=== PATIENT | female | born 1965 | race Caucasian/White ===

== ENCOUNTER 2023-03-16 21:19 | Emergency (ER) | payer OTHER ==
--- NOTE | 2023-03-16 21:24 | ERPHSYRPT ---
- History of Present Illness Time Seen by Provider: 03/16/23 21:24 Source: patient, family Exam Limitations: no limitations Physician History: This is a 58-year-old white female patient of Shara Mackay who for the last week has had worsening generalized body aches and weakness. Patient denies chest pain. Patient denies shortness of breath. Patient denies fever. Patient denies cough. Patient denies nausea vomiting or diarrhea. Patient has a history of hypertension. She has no known exposures to individuals with similar symptoms. Timing/Duration: week(s) (1), worse Severity: moderate Associated Symptoms: malaise, weakness, other (Generalized aches and pains), No shortness of breath, No chest pain Allergies/Adverse Reactions: latex Allergy (Mild, Verified 03/16/23 21:27) Rash tape Allergy (Mild, Uncoded 03/16/23 21:27) Rash Home Medications: Lisinopril 10 mg [Zestril 10 MG] 20 mg PO DAILY 09/20/14 [History] hydroCHLOROthiazide [Hydrochlorothiazide] 12.5 mg PO DAILY 03/16/23 [History] Hx Tetanus, Diphtheria Vaccination/Date Given: Yes Hx Influenza Vaccination/Date Given: Yes Hx Pneumococcal Vaccination/Date Given: No Travel Risk - International Travel Have you traveled outside of the country in past 3 weeks: No - Coronavirus Screening Are you exhibiting any of the following symptoms?: Yes Symptoms: Headaches/Body Aches/Fatigue Close contact with a COVID-19 positive Pt in past 14-21 Days: No - Review of Systems Constitutional: Weakness Eyes: No Symptoms Ears, Nose, & Throat: No Symptoms Respiratory: No Symptoms Cardiac: No Symptoms Abdominal/Gastrointestinal: No Symptoms Genitourinary Symptoms: No Symptoms Musculoskeletal: Arthralgias, Myalgias Skin: No Symptoms Neurological: No Symptoms Psychological: No Symptoms Endocrine: No Symptoms Hematologic/Lymphatic: No Symptoms Immunological/Allergic: No Symptoms All Other Systems: Reviewed and Negative - Past Medical History Pertinent Past Medical History: Yes Cardiac History: Hypertension - Past Surgical History Past Surgical History: Yes Female Surgical History: Tubal Ligation, Other Other Surgical History: CYST REMOVED FROM LEFT WRIST - Social History Smoking Status: Former smoker Exposure to second hand smoke: No Drug Use: none Patient Lives Alone: No - Nursing Vital Signs Nursing Vital Signs: Initial Vital Signs Pulse Rate 76 03/16/23 21:30 Respiratory Rate 20 03/16/23 21:30 Blood Pressure 185/94 03/16/23 21:30 O2 Sat by Pulse Oximetry 98 03/16/23 21:30 Pain Scale Pain Intensity [Generalized] 7 Pain Intensity 0 - Physical Exam General Appearance: no apparent distress, alert, anxiety, obese Eye Exam: PERRL/EOMI, eyes nml inspection Ears, Nose, Throat Exam: normal ENT inspection, moist mucous membranes Neck Exam: normal inspection, non-tender, supple, full range of motion Respiratory Exam: normal breath sounds, lungs clear, airway intact, No chest tenderness, No respiratory distress Cardiovascular Exam: regular rate/rhythm, normal heart sounds, normal peripheral pulses Gastrointestinal/Abdomen Exam: soft, normal bowel sounds, No tenderness Pelvic Exam: not done Rectal Exam: not done Back Exam: normal inspection, normal range of motion, No CVA tenderness, No vertebral tenderness Extremity Exam: normal inspection, normal range of motion, pelvis stable Neurologic Exam: alert, oriented x 3, cooperative, mortar carrier II-XII nml as tested, normal mood/affect, nml cerebellar function, nml station & gait, sensation nml Skin Exam: normal color, warm, dry Lymphatic Exam: No adenopathy SpO2 Interpretation: normal O2 Delivery: Room Air - Course Nursing assessment & vital signs reviewed: Yes Ordered Tests: Active Orders 24 hr Category Date Time Status IV Insertion STAT Care 03/16/23 21:43 Active Pulse Oximetry (ED) STAT Care 03/16/23 21:43 Active CBC W DIFF Stat Lab 03/16/23 21:58 Completed CMP Stat Lab 03/16/23 21:58 Completed MONO SCREEN Stat Lab 03/16/23 21:58 Completed UA W/RFX UR CULTURE Stat Lab 03/16/23 23:26 Completed Medication Summary Discontinued Medications Generic Name Dose Route Start Last Admin Trade Name Freq PRN Reason Stop Dose Admin Hydromorphone HCl 1 mg 03/16/23 22:00 03/16/23 22:05 Hydromorphone 1 Mg/1ml Inj IV 03/16/23 22:01 1 mg STAT ONE Administration Hydromorphone HCl Confirm 03/16/23 22:04 Hydromorphone 1 Mg/1ml Inj Administered 03/16/23 22:05 Dose 1 mg .ROUTE .STK-MED ONE Sodium Chloride 1,000 mls @ 999 mls/hr 03/16/23 21:43 03/16/23 22:55 Sodium Chloride 0.9% 1000 Ml IV 03/16/23 22:43 Infused .Q1H1M STA Infusion Sodium Chloride Confirm 03/16/23 21:59 Sodium Chloride 0.9% 1000 Ml Administered 03/16/23 22:00 Dose 1,000 mls @ ud .ROUTE .STK-MED ONE Ketorolac Tromethamine 30 mg 03/16/23 22:00 03/16/23 22:04 Ketorolac Tromethamine 30 Mg/Ml Inj IV 03/16/23 22:01 30 mg STAT ONE Administration Ketorolac Tromethamine Confirm 03/16/23 22:03 Ketorolac Tromethamine 30 Mg/Ml Inj Administered 03/16/23 22:04 Dose 30 mg .ROUTE .STK-MED ONE Ondansetron HCl 4 mg 03/16/23 22:00 03/16/23 22:05 Ondansetron Hcl 4 Mg/2 Ml Vial IV 03/16/23 22:01 4 mg STAT ONE Administration Ondansetron HCl Confirm 03/16/23 22:03 Ondansetron Hcl 4 Mg/2 Ml Vial Administered 03/16/23 22:04 Dose 4 mg .ROUTE .STK-MED ONE Lab/Rad Data: Laboratory Result Diagrams 03/16/23 21:58 03/16/23 21:58 Laboratory Results 03/16/23 03/16/23 03/16/23 Range/Units 23:26 21:58 21:58 WBC (4.0-10.5) x10^3/uL RBC (4.1-5.4) x10^6/uL Hgb (12.0-16.0) g/dL Hct (35-47) % MCV (78-100) fL MCH (26-32) pg MCHC (32-36) g/dL RDW (11.5-14.0) % Plt Count (150-450) x10^3/uL MPV (7.5-11.0) fL Gran % (36.0-66.0) % Immature Gran % (Auto) (0.00-0.4) % Nucleat RBC Rel Count (0.00-0.1) % Eos # (Auto) (0-0.5) x10^3/uL Immature Gran # (Auto) (0.00-0.03) x10^3u/L Absolute Lymphs (auto) (1.0-4.6) x10^3/uL Absolute Monos (auto) (0.0-1.3) x10^3/uL Absolute Nucleated RBC (0.00-0.01) x10^3u/L Lymphocytes % (24.0-44.0) % Monocytes % (0.0-12.0) % Eosinophils % (0.00-5.0) % Basophils % (0.0-0.4) % Absolute Granulocytes (1.4-6.9) x10^3/uL Basophils # (0-0.4) x10^3/uL Sodium (137-145) mmol/L Potassium (3.5-5.1) mmol/L Chloride (98-107) mmol/L Carbon Dioxide (22-30) mmol/L Anion Gap (5-15) MEQ/L BUN (7-17) mg/dL Creatinine (0.52-1.04) mg/dL Estimated GFR ML/MIN Glucose (74-106) mg/dL Calcium (8.4-10.2) mg/dL Total Bilirubin (0.2-1.3) mg/dL AST (14-36) U/L ALT (0-35) U/L Alkaline Phosphatase (38-126) U/L Serum Total Protein (6.3-8.2) g/dL Albumin (3.5-5.0) g/dL Urine Color Yellow (Yellow) Urine Appearance Clear (Clear) Urine pH 6.0 (4.6-8.0) Ur Specific [place] 1.015 (1.005-1.030) Urine Protein Negative (Negative) Urine Glucose (UA) Negative (Negative) mg/dL Urine Ketones Negative (Negative) Urine Blood Negative (Negative) Urine Nitrite Negative (Negative) Urine Bilirubin Negative (Negative) Urine Urobilinogen 1.0 A (0.2) mg/dL Ur Leukocyte Esterase Trace A (Negative) U Hyaline Cast (Auto) NONE SEEN (0-2) /LPF Urine Microscopic RBC 6-10 A (0-5) /HPF Urine Microscopic WBC 0-2 (0-5) /HPF Ur Epithelial Cells Rare (None Seen) /HPF Urine Bacteria None Seen (None Seen) /HPF Urine Culture Reflexed NO (NO) Monoscreen NEGATIVE (NEGATIVE) Influenza Type A Ag NEGATIVE (NEGATIVE) Influenza Type B Ag NEGATIVE (NEGATIVE) RSV (PCR) NEGATIVE (NEGATIVE) SARS-CoV-2 (PCR) NEGATIVE (NEGATIVE) 03/16/23 03/16/23 Range/Units 21:58 21:58 WBC 8.9 (4.0-10.5) x10^3/uL RBC 3.90 L (4.1-5.4) x10^6/uL Hgb 12.3 (12.0-16.0) g/dL Hct 37.6 (35-47) % MCV 96.4 (78-100) fL MCH 31.5 (26-32) pg MCHC 32.7 (32-36) g/dL RDW 13.2 (11.5-14.0) % Plt Count 341 (150-450) x10^3/uL MPV 10.3 (7.5-11.0) fL Gran % 52.6 (36.0-66.0) % Immature Gran % (Auto) 0.3 (0.00-0.4) % Nucleat RBC Rel Count 0.0 (0.00-0.1) % Eos # (Auto) 0.30 (0-0.5) x10^3/uL Immature Gran # (Auto) 0.03 (0.00-0.03) x10^3u/L Absolute Lymphs (auto) 3.05 (1.0-4.6) x10^3/uL Absolute Monos (auto) 0.75 (0.0-1.3) x10^3/uL Absolute Nucleated RBC 0.00 (0.00-0.01) x10^3u/L Lymphocytes % 34.5 (24.0-44.0) % Monocytes % 8.5 (0.0-12.0) % Eosinophils % 3.4 (0.00-5.0) % Basophils % 0.7 (0.0-0.4) % Absolute Granulocytes 4.66 (1.4-6.9) x10^3/uL Basophils # 0.06 (0-0.4) x10^3/uL Sodium 140 (137-145) mmol/L Potassium 4.1 (3.5-5.1) mmol/L Chloride 105 (98-107) mmol/L Carbon Dioxide 27 (22-30) mmol/L Anion Gap 11.6 (5-15) MEQ/L BUN 18 H (7-17) mg/dL Creatinine 1.05 H (0.52-1.04) mg/dL Estimated GFR 57.2 ML/MIN Glucose 109 H (74-106) mg/dL Calcium 8.7 (8.4-10.2) mg/dL Total Bilirubin 0.40 (0.2-1.3) mg/dL AST 32 (14-36) U/L ALT 24 (0-35) U/L Alkaline Phosphatase 78 (38-126) U/L Serum Total Protein 7.1 (6.3-8.2) g/dL Albumin 3.9 (3.5-5.0) g/dL Urine Color (Yellow) Urine Appearance (Clear) Urine pH (4.6-8.0) Ur Specific [place] (1.005-1.030) Urine Protein (Negative) Urine Glucose (UA) (Negative) mg/dL Urine Ketones (Negative) Urine Blood (Negative) Urine Nitrite (Negative) Urine Bilirubin (Negative) Urine Urobilinogen (0.2) mg/dL Ur Leukocyte Esterase (Negative) U Hyaline Cast (Auto) (0-2) /LPF Urine Microscopic RBC (0-5) /HPF Urine Microscopic WBC (0-5) /HPF Ur Epithelial Cells (None Seen) /HPF Urine Bacteria (None Seen) /HPF Urine Culture Reflexed (NO) Monoscreen (NEGATIVE) Influenza Type A Ag (NEGATIVE) Influenza Type B Ag (NEGATIVE) RSV (PCR) (NEGATIVE) SARS-CoV-2 (PCR) (NEGATIVE) - Progress Progress: improved, pain not gone completely, re-examined Progress Note: 03/16/23 23:55 Patient's medical issue is 1 of moderate complexity. Level complexity in the work-up performed is based on the review of the patient's past medical history, review of the patient's medication list, review of the patient's drug allergy list, history of present illness and physical findings on examination. The work-up in this patient included urinalysis, placement of intravenous line, infusion of 1 L of normal saline solution, COVID/RSV, influenza A/B swabs, mono test, CBC, CMP. I reviewed the above findings. The work-up was negative for any acute, emergent medical issue. Patient likely has some type of viral infection. We will refer her back to her primary care provider on 03/17/2023 for further evaluation and management. Patient denies chest pain and she denies shortness of breath. Counseled pt/family regarding: lab results, diagnosis, need for follow-up Medical Desision Making - Independent Historian Additional History obtained from: Spouse - Diagnostic Testing Diagnostic test were ordered, analyzed, and reviewed by me: Yes - Risk of complications Low Risk: Low risk of morbidity from additional dx testing or treatment - Departure Departure Disposition: Home Clinical Impression: Arthralgia, Flu-like symptoms Condition: Stable Critical Care Time: No Referrals: SHARA MACKAY FNP [Primary Care Provider] - Follow up/PCP as directed Additional Instructions: Drink plenty of fluids. Take your medication as prescribed. Follow-up with your primary care provider on 03/17/2023 to make an appointment for further evaluation management. Forms: Work/School Release Form
[2023-03-16 21:39] VITALS: TEMP 97.9
[2023-03-16] MEDS ORDERED: Sodium Chloride 0.9% 1000 ML 1,000 ML IV STA (21:43)
[2023-03-16] MEDS ORDERED: Sodium Chloride 0.9% 1000 ML 1,000 ML ONE (21:59)
[2023-03-16 22:00] LABS: Absolute Neutrophil Ct (ANC) 4.66 x10^3/uL (1.4-6.9); BASOPHIL % 0.7 % (0.0-0.4); Basophil (Absolute #) 0.06 x10^3/uL (0-0.4); Eosinophil % 3.4 % (0.00-5.0); Hematocrit 37.6 % (35-47); Hemoglobin 12.3 g/dL (12.0-16.0); IMMATURE GRAN # 0.03 x10^3u/L (0.00-0.03); IMMATURE GRAN % 0.3 % (0.00-0.4); Lymphocyte (Absolute #) 3.05 x10^3/uL (1.0-4.6); Lymphocytes % 34.5 % (24.0-44.0); Mean Cell Volume 96.4 fL (78-100); Mean Corpuscular Hemoglobin 31.5 pg (26-32); Mean Corpuscular Hgb Concent. 32.7 g/dL (32-36); Mean Platelet Volume 10.3 fL (7.5-11.0); Monocyte (Absolute #) 0.75 x10^3/uL (0.0-1.3); Monocytes % 8.5 % (0.0-12.0); Neutrophil % 52.6 % (36.0-66.0); Platelet Count 341 x10^3/uL (150-450); Red Cell Distribution Width 13.2 % (11.5-14.0); White Blood Count 8.9 x10^3/uL (4.0-10.5)
[2023-03-16] MEDS ORDERED: Hydromorphone 1 mg/ml Injection IV ONE (22:00)
[2023-03-16] MEDS ORDERED: Zofran 4 MG/2 ML VIAL IV ONE (22:00)
[2023-03-16] MEDS ORDERED: TORAdol 30 mg Injection IV ONE (22:00)
[2023-03-16] MEDS ORDERED: TORAdol 30 mg Injection ONE (22:03)
[2023-03-16] MEDS ORDERED: Zofran 4 MG/2 ML VIAL ONE (22:03)
[2023-03-16] MEDS ORDERED: Hydromorphone 1 mg/ml Injection ONE (22:04)
[2023-03-16 22:11] LABS: ALBUMIN 3.9 g/dL (3.5-5.0); ANION GAP 11.6 MEQ/L (5-15); BILIRUBIN,TOTAL 0.4 mg/dL (0.2-1.3); Calcium 8.7 mg/dL (8.4-10.2); Creatinine 1 1.05 mg/dL (0.52-1.04); EST GLOMERULAR FILTRATION RATE 57.2 ML/MIN; Potassium 4.1 mmol/L (3.5-5.1); Total Protein 7.1 g/dL (6.3-8.2)
[2023-03-16 22:37] LABS: INFLUENZA A NEGATIVE (NEGATIVE); INFLUENZA B NEGATIVE (NEGATIVE); RESPIRATORY SYNCTIAL VIRUS NEGATIVE (NEGATIVE); SARS-CoV-2 Xpert Express NEGATIVE (NEGATIVE)
[2023-03-16 23:03] VITALS: RESP 18
[2023-03-16 23:46] LABS: ADD URINE CULTURE? NO (NO); Appearance Clear (Clear); Bacteria None Seen /HPF (None Seen); Bilirubin Negative (Negative); Blood Negative (Negative); Epithelial Cells Rare /HPF (None Seen); Glucose, Urine Negative (Negative); Hyaline Casts NONE SEEN /LPF (0-2); Ketones Negative (Negative); Leukocyte Esterase Trace (Negative); Nitrite Negative (Negative); Protein,Urine Dip Negative (Negative); Specific Gravity 1.015 (1.005-1.030); WBC 0-2 /HPF (0-5)
[2023-03-17 00:02] VITALS: BP 169/90; PULSE 60; O2SAT 98
== END 2023-03-17 00:10 | disposition home or self-care (01) ==
LOC: ED 21:19
DX: M25.50 Pain in unspecified joint (principal); R53.1 Weakness; M79.10 Myalgia, unspecified site; I10 Essential (primary) hypertension; Z79.899 Other long term (current) drug therapy
CPT/HCPCS: 0241U; 36000; 36415; 80053; 81001; 85025; 86308; 94760; 96360; 96374; 96375; 99284; J1170; J1885; J2405

== ENCOUNTER 2023-10-04 23:09 | Observation (INO) | payer OTHER ==
--- NOTE | 2023-10-04 23:49 | ERPHSYRPT ---
- History of Present Illness Time Seen by Provider: 10/04/23 23:46 Source: patient, family Exam Limitations: no limitations Patient Subjective Stated Complaint: pt states that she was postiive flu b and bronchitis x1 month ago and states that she still has a cough that she can't get over, pt also c/o of SMITH and vomiting x3 episodes that started today Triage Nursing Assessment: pt ambulatory to bed by stand by assist from wheelchair, pt alert and oriented x3, skin pwd, pt c/o cough and dizziness x1 month and headahce and vomiting that started today, pt had 3 episodes of vomiting in the last 12 hrs, pt c/o 7/10 headache, pt was diagnosed with flu B x1 month ago, pt has intermittent nonproductive cough during triage, pt afebrile Physician History: Pt has 1 month Hx flu with + Flu B swab, Neg Covid swab x 2, now has vomiting and ABd pain/tenderness today. Fatigued for the past month. Headache has been also the past month but is getting worse per pt. No Hx trauma. Tx also with steroids and Z roberto without improvement by Hx. is here in ER as independent confirming Hx source. I discussed the risks/benefits of Tx IVF, Zofran, Prilosec Pepcid, CXR, Abd CT, Head CT. EKG, Trops, BNP ( upper abd pain and weakness fatigue which could be symptoms of cardiac condition) , CBC, CMP, Lactate, HCG, T 4 TSH ( fatigue) , UA, Amylase, Lipase, Assumption ( fatigue), Sed rate ( checking for temporal arteritis/inflammatory cause of headache) , and Co-oximetry( checking for carbon monoxide) with PT and spouse and they wish to proceed so these are ordered. Results were discussed. PMHx Hptn and has vomited meds today. She is a nonsmoker with lower than expected O2 sat. and RLL infiltrate SP flu. Timing/Duration: today (vomiting and abd pain), week(s) (flu symptoms and headache) Severity: moderate Associated Symptoms: nausea, vomiting, abdominal pain, cough, headaches Allergies/Adverse Reactions: latex Allergy (Mild, Verified 03/16/23 21:27) Rash tape Allergy (Mild, Uncoded 03/16/23 21:27) Rash Home Medications: Lisinopril 10 mg [Zestril 10 MG] 40 mg PO DAILY 09/20/14 [History] hydroCHLOROthiazide [Hydrochlorothiazide] 12.5 mg PO DAILY 03/16/23 [History] Metoprolol Succinate 100 mg [Toprol Xl 100 MG] 100 mg PO DAILY 10/04/23 [History] Hx Tetanus, Diphtheria Vaccination/Date Given: Yes Hx Influenza Vaccination/Date Given: Yes Hx Pneumococcal Vaccination/Date Given: No Immunizations Up to Date: Yes Travel Risk - International Travel Have you traveled outside of the country in past 3 weeks: No - Coronavirus Screening Are you exhibiting any of the following symptoms?: Yes Symptoms: Vomiting/Diarrhea Close contact with a COVID-19 positive Pt in past 14-21 Days: No - Vaccine Status Have you recieved a Covid-19 vaccination: No 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 - Vaccination Dates Date of 2cond Vaccination (if applicable): 2020 - Review of Systems Constitutional: No Fever, No Chills Eyes: No Symptoms Ears, Nose, & Throat: No Symptoms Respiratory: Cough, No Dyspnea Cardiac: No Chest Pain, No Edema, No Syncope Abdominal/Gastrointestinal: Abdominal Pain, Nausea, Vomiting, No Diarrhea Genitourinary Symptoms: No Dysuria Musculoskeletal: No Back Pain, No Neck Pain Skin: No Rash Neurological: Headache, No Dizziness, No Focal Weakness, No Sensory Changes Psychological: No Symptoms Endocrine: No Symptoms Hematologic/Lymphatic: No Symptoms Immunological/Allergic: No Symptoms All Other Systems: Reviewed and Negative - Past Medical History Pertinent Past Medical History: Yes Neurological History: Migraines ENT History: No Pertinent History Cardiac History: Hypertension Respiratory History: No Pertinent History Endocrine Medical History: No Pertinent History Musculoskeletal History: No Pertinent History GI Medical History: GERD History: No Pertinent History Psycho-Social History: No Pertinent History Female Reproductive Disorders: No Pertinent History - Past Surgical History Past Surgical History: Yes Neuro Surgical History: No Pertinent History Cardiac: No Pertinent History Respiratory: No Pertinent History Gastrointestinal: No Pertinent History Genitourinary: No Pertinent History Musculoskeletal: Orthopedic Surgery Female Surgical History: Tubal Ligation, Other Other Surgical History: CYST REMOVED FROM LEFT WRIST - Social History Smoking Status: Former smoker Exposure to second hand smoke: No Drug Use: other Patient Lives Alone: No - Nursing Vital Signs Nursing Vital Signs: Initial Vital Signs Temperature 98.5 F 10/04/23 23:27 Pulse Rate 115 H 10/04/23 23:27 Respiratory Rate 18 10/04/23 23:27 Blood Pressure 194/108 10/04/23 23:27 O2 Sat by Pulse Oximetry 93 L 10/04/23 23:27 Pain Scale Pain Intensity 7 - Physical Exam General Appearance: no apparent distress, alert Eye Exam: PERRL/EOMI, eyes nml inspection, other (Fundi benign) Ears, Nose, Throat Exam: normal ENT inspection, TMs normal, pharynx normal, moist mucous membranes Neck Exam: normal inspection, non-tender, supple, full range of motion, No meningismus, No Brudzinski, No Kernig's, No thyromegaly Respiratory Exam: normal breath sounds, lungs clear, airway intact, No respiratory distress, No accessory muscle use, No crackles/rales, No rhonchi, No wheezing, No stridor Cardiovascular Exam: regular rate/rhythm, normal heart sounds, normal peripheral pulses, tachycardia Gastrointestinal/Abdomen Exam: soft, normal bowel sounds, tenderness, guarding, No distention, No mass, No rebound Pelvic Exam: deferred Rectal Exam: deferred Back Exam: normal inspection, normal range of motion, No CVA tenderness, No vertebral tenderness Extremity Exam: normal inspection, normal range of motion, pelvis stable, No calf tenderness, No jarod's sign, No pedal edema, No swelling Neurologic Exam: alert, oriented x 3, cooperative, beauty director II-XII nml as tested, normal mood/affect, nml cerebellar function, nml station & gait, sensation nml, No motor deficits Skin Exam: normal color, warm, dry, No rash Lymphatic Exam: No adenopathy SpO2 Interpretation: borderline oxygenation SpO2: 93 O2 Delivery: Room Air - Course Nursing assessment & vital signs reviewed: Yes EKG Interpreted by Me: Sinus Rhythm, NORMAL AXIS, NORMAL INTERVALS, NORMAL QRS, Non-specific ST Changes - Radiology Exams Chest X-ray Interpretation: Reviewed by me, Infiltrates, Pneumonia (RLL) - CT Exams Head CT Interpretation: Tele-radiologist Report, No/Intracranial Hemorrhag, Other (chronic microvascular changes) Abdomen/Pelvis CT Interpretation: Tele-radiologist Report, Normal Appendix, No appendicitis, Other (bilateral renal calcs nonobst, Gallstones non acute) Ordered Tests: Active Orders 24 hr Category Date Time Status EKG-ER Only STAT Care 10/04/23 23:57 Active IV Insertion STAT Care 10/04/23 23:57 Active ABDOMEN AND PELVIS W/0 CONTRAS [CT] Stat Exams 10/04/23 23:58 Completed CHEST 2 VIEWS (PA AND LAT) Stat Exams 10/04/23 23:58 Taken HEAD WITHOUT CONTRAST [CT] Stat Exams 10/05/23 00:20 Completed CBC W DIFF Stat Lab 10/04/23 23:57 Completed CO-OXIMETRY Stat Lab 10/05/23 00:24 Ordered CULTURE,URINE Stat Lab 10/05/23 00:55 Received Lactic Acid Stat Lab 10/04/23 23:57 Completed MONO SCREEN Stat Lab 10/05/23 01:00 Completed SED RATE [Erythrocyte Sedimentation Rate] Stat Lab 10/05/23 00:00 Completed TROPONIN Q4H Lab 10/05/23 03:57 Ordered TROPONIN Q4H Lab 10/05/23 07:57 Ordered UA W/RFX UR CULTURE Stat Lab 10/05/23 00:55 Completed Medication Summary Discontinued Medications Generic Name Dose Route Start Last Admin Trade Name Freq PRN Reason Stop Dose Admin Droperidol 0.625 mg 10/05/23 00:39 10/05/23 00:42 Droperidol 5 Mg/2 Ml Vial IV 10/05/23 00:40 0.625 mg STAT ONE Administration Droperidol Confirm 10/05/23 00:40 Droperidol 5 Mg/2 Ml Vial Administered 10/05/23 00:41 Dose 5 mg .ROUTE .STK-MED ONE Famotidine 20 mg 10/04/23 23:57 10/05/23 00:12 Famotidine 20 Mg/1 Vial IV 10/04/23 23:58 20 mg STAT ONE Administration Famotidine Confirm 10/05/23 00:06 Famotidine 20 Mg/1 Vial Administered 10/05/23 00:07 Dose 20 mg IV .STK-MED ONE Hydralazine HCl 10 mg 10/05/23 01:48 10/05/23 01:50 Hydralazine Hcl 20 Mg/Ml Vial IV 10/05/23 01:49 10 mg STAT ONE Administration Hydralazine HCl Confirm 10/05/23 01:49 Hydralazine Hcl 20 Mg/Ml Vial Administered 10/05/23 01:50 Dose 20 mg .ROUTE .STK-MED ONE Sodium Chloride 1,000 mls @ 999 mls/hr 10/04/23 23:57 10/05/23 02:00 Sodium Chloride 0.9% 1000 Ml IV 10/05/23 00:57 Infused .Q1H1M STA Infusion Sodium Chloride Confirm 10/05/23 00:06 Sodium Chloride 0.9% 1000 Ml Administered 10/05/23 00:07 Dose 1,000 mls @ ud .ROUTE .STK-MED ONE Ceftriaxone Sodium 1 gm in 100 mls @ 200 mls/hr 10/05/23 00:50 10/05/23 02:00 Rocephin 1 Gm / 100 Ml Nacl IV 10/05/23 01:19 Infused STAT ONE Infusion Ceftriaxone Sodium Confirm 10/05/23 01:04 Rocephin 1 Gm / 100 Ml Nacl Administered 10/05/23 01:05 Dose 1 gm in 100 mls @ ud IV .STK-MED ONE Ondansetron HCl 4 mg 10/04/23 23:57 10/05/23 00:12 Ondansetron Hcl 4 Mg/2 Ml Vial IV 10/04/23 23:58 4 mg STAT ONE Administration Ondansetron HCl Confirm 10/05/23 00:05 Ondansetron Hcl 4 Mg/2 Ml Vial Administered 10/05/23 00:06 Dose 4 mg .ROUTE .STK-MED ONE Pantoprazole Sodium 40 mg 10/04/23 23:57 10/05/23 00:12 Pantoprazole 40 Mg Vial IV 10/04/23 23:58 40 mg STAT ONE Administration Pantoprazole Sodium Confirm 10/05/23 00:06 Pantoprazole 40 Mg Vial Administered 10/05/23 00:07 Dose 40 mg IV .STK-MED ONE Lab/Rad Data: Laboratory Result Diagrams 10/05/23 00:05 10/04/23 01:00 Laboratory Results 10/05/23 10/05/23 10/05/23 Range/Units 01:00 00:55 00:10 WBC (4.0-10.5) x10^3/uL RBC (4.1-5.4) x10^6/uL Hgb (12.0-16.0) g/dL Hct (35-47) % MCV (78-100) fL MCH (26-32) pg MCHC (32-36) g/dL RDW (11.5-14.0) % Plt Count (150-450) x10^3/uL MPV (7.5-11.0) fL Gran % (36.0-66.0) % Immature Gran % (Auto) (0.00-0.4) % Nucleat RBC Rel Count (0.00-0.1) % Eos # (Auto) (0-0.5) x10^3/uL Immature Gran # (Auto) (0.00-0.03) x10^3u/L Absolute Lymphs (auto) (1.0-4.6) x10^3/uL Absolute Monos (auto) (0.0-1.3) x10^3/uL Absolute Nucleated RBC (0.00-0.01) x10^3u/L Lymphocytes % (24.0-44.0) % Monocytes % (0.0-12.0) % Eosinophils % (0.00-5.0) % Basophils % (0.0-0.4) % Absolute Granulocytes (1.4-6.9) x10^3/uL Basophils # (0-0.4) x10^3/uL ESR (0-20) mm/hr Sodium (135-145) mmol/L Potassium (3.5-5.1) mmol/L Chloride (98-107) mmol/L Carbon Dioxide (22-30) mmol/L Anion Gap (5-15) MEQ/L BUN (7-17) mg/dL Creatinine (0.52-1.04) mg/dL Estimated GFR ML/MIN Glucose (74-106) mg/dL Lactic Acid 1.1 (0.4-2.0) Calcium (8.4-10.2) mg/dL Total Bilirubin (0.2-1.3) mg/dL AST (14-36) U/L ALT (0-35) U/L Alkaline Phosphatase (38-126) U/L Troponin I (0.000-0.034) ng/mL NT-Pro-B Natriuret Pep (<300) pg/mL Serum Total Protein (6.3-8.2) g/dL Albumin (3.5-5.0) g/dL Amylase (30-110) U/L Lipase (23-300) U/L Free T4 (0.78-2.19) ng/dL TSH 3rd Generation (0.47-4.68) mIU/L Serum HCG, Qual (NEGATIVE) Urine Color Yellow (Yellow) Urine Appearance Clear (Clear) Urine pH 8.0 (4.6-8.0) Ur Specific [place] 1.015 (1.005-1.030) Urine Protein Negative (Negative) Urine Glucose (UA) Negative (Negative) mg/dL Urine Ketones Negative (Negative) Urine Blood Negative (Negative) Urine Nitrite Negative (Negative) Urine Bilirubin Negative (Negative) Urine Urobilinogen 0.2 (0.2) mg/dL Ur Leukocyte Esterase Large A (Negative) U Hyaline Cast (Auto) NONE SEEN (0-2) /LPF Urine Microscopic RBC 0-2 (0-5) /HPF Urine Microscopic WBC 11-20 A (0-5) /HPF Ur Epithelial Cells Moderate A (None Seen) /HPF Urine Bacteria Rare A (None Seen) /HPF Urine Culture Reflexed YES (NO) Monoscreen NEGATIVE (NEGATIVE) 10/05/23 10/05/23 10/05/23 Range/Units 00:05 00:05 00:00 WBC 7.8 (4.0-10.5) x10^3/uL RBC 4.57 (4.1-5.4) x10^6/uL Hgb 14.0 (12.0-16.0) g/dL Hct 42.8 (35-47) % MCV 93.7 (78-100) fL MCH 30.6 (26-32) pg MCHC 32.7 (32-36) g/dL RDW 13.0 (11.5-14.0) % Plt Count 362 (150-450) x10^3/uL MPV 10.4 (7.5-11.0) fL Gran % 81.5 H (36.0-66.0) % Immature Gran % (Auto) 0.3 (0.00-0.4) % Nucleat RBC Rel Count 0.0 (0.00-0.1) % Eos # (Auto) 0.15 (0-0.5) x10^3/uL Immature Gran # (Auto) 0.02 (0.00-0.03) x10^3u/L Absolute Lymphs (auto) 0.64 L (1.0-4.6) x10^3/uL Absolute Monos (auto) 0.60 (0.0-1.3) x10^3/uL Absolute Nucleated RBC 0.00 (0.00-0.01) x10^3u/L Lymphocytes % 8.2 L (24.0-44.0) % Monocytes % 7.7 (0.0-12.0) % Eosinophils % 1.9 (0.00-5.0) % Basophils % 0.4 (0.0-0.4) % Absolute Granulocytes 6.38 (1.4-6.9) x10^3/uL Basophils # 0.03 (0-0.4) x10^3/uL ESR 47 H (0-20) mm/hr Sodium (135-145) mmol/L Potassium (3.5-5.1) mmol/L Chloride (98-107) mmol/L Carbon Dioxide (22-30) mmol/L Anion Gap (5-15) MEQ/L BUN (7-17) mg/dL Creatinine (0.52-1.04) mg/dL Estimated GFR ML/MIN Glucose (74-106) mg/dL Lactic Acid (0.4-2.0) Calcium (8.4-10.2) mg/dL Total Bilirubin (0.2-1.3) mg/dL AST (14-36) U/L ALT (0-35) U/L Alkaline Phosphatase (38-126) U/L Troponin I (0.000-0.034) ng/mL NT-Pro-B Natriuret Pep (<300) pg/mL Serum Total Protein (6.3-8.2) g/dL Albumin (3.5-5.0) g/dL Amylase (30-110) U/L Lipase (23-300) U/L Free T4 0.98 (0.78-2.19) ng/dL TSH 3rd Generation (0.47-4.68) mIU/L Serum HCG, Qual (NEGATIVE) Urine Color (Yellow) Urine Appearance (Clear) Urine pH (4.6-8.0) Ur Specific [place] (1.005-1.030) Urine Protein (Negative) Urine Glucose (UA) (Negative) mg/dL Urine Ketones (Negative) Urine Blood (Negative) Urine Nitrite (Negative) Urine Bilirubin (Negative) Urine Urobilinogen (0.2) mg/dL Ur Leukocyte Esterase (Negative) U Hyaline Cast (Auto) (0-2) /LPF Urine Microscopic RBC (0-5) /HPF Urine Microscopic WBC (0-5) /HPF Ur Epithelial Cells (None Seen) /HPF Urine Bacteria (None Seen) /HPF Urine Culture Reflexed (NO) Monoscreen (NEGATIVE) 10/04/23 10/04/23 10/04/23 Range/Units 01:00 01:00 01:00 WBC (4.0-10.5) x10^3/uL RBC (4.1-5.4) x10^6/uL Hgb (12.0-16.0) g/dL Hct (35-47) % MCV (78-100) fL MCH (26-32) pg MCHC (32-36) g/dL RDW (11.5-14.0) % Plt Count (150-450) x10^3/uL MPV (7.5-11.0) fL Gran % (36.0-66.0) % Immature Gran % (Auto) (0.00-0.4) % Nucleat RBC Rel Count (0.00-0.1) % Eos # (Auto) (0-0.5) x10^3/uL Immature Gran # (Auto) (0.00-0.03) x10^3u/L Absolute Lymphs (auto) (1.0-4.6) x10^3/uL Absolute Monos (auto) (0.0-1.3) x10^3/uL Absolute Nucleated RBC (0.00-0.01) x10^3u/L Lymphocytes % (24.0-44.0) % Monocytes % (0.0-12.0) % Eosinophils % (0.00-5.0) % Basophils % (0.0-0.4) % Absolute Granulocytes (1.4-6.9) x10^3/uL Basophils # (0-0.4) x10^3/uL ESR (0-20) mm/hr Sodium 140 (135-145) mmol/L Potassium 4.2 (3.5-5.1) mmol/L Chloride 106 (98-107) mmol/L Carbon Dioxide 24 (22-30) mmol/L Anion Gap 14.0 (5-15) MEQ/L BUN 10 (7-17) mg/dL Creatinine 0.88 (0.52-1.04) mg/dL Estimated GFR 76.1 ML/MIN Glucose 118 H (74-106) mg/dL Lactic Acid (0.4-2.0) Calcium 9.2 (8.4-10.2) mg/dL Total Bilirubin 0.60 (0.2-1.3) mg/dL AST 21 (14-36) U/L ALT 20 (0-35) U/L Alkaline Phosphatase 99 (38-126) U/L Troponin I < 0.012 (0.000-0.034) ng/mL NT-Pro-B Natriuret Pep 484 (<300) pg/mL Serum Total Protein 7.4 (6.3-8.2) g/dL Albumin 4.2 (3.5-5.0) g/dL Amylase 70 (30-110) U/L Lipase 95 (23-300) U/L Free T4 (0.78-2.19) ng/dL TSH 3rd Generation 0.837 (0.47-4.68) mIU/L Serum HCG, Qual NEGATIVE (NEGATIVE) Urine Color (Yellow) Urine Appearance (Clear) Urine pH (4.6-8.0) Ur Specific [place] (1.005-1.030) Urine Protein (Negative) Urine Glucose (UA) (Negative) mg/dL Urine Ketones (Negative) Urine Blood (Negative) Urine Nitrite (Negative) Urine Bilirubin (Negative) Urine Urobilinogen (0.2) mg/dL Ur Leukocyte Esterase (Negative) U Hyaline Cast (Auto) (0-2) /LPF Urine Microscopic RBC (0-5) /HPF Urine Microscopic WBC (0-5) /HPF Ur Epithelial Cells (None Seen) /HPF Urine Bacteria (None Seen) /HPF Urine Culture Reflexed (NO) Monoscreen (NEGATIVE) - Progress Progress: improved, re-examined Progress Note: 10/05/23 00:40 pt is still with dry heaves/nausea and headache after zofran, discussed risks/benefits with pt and and droperidol and they wish to proceed. 10/05/23 00:49 RLL pneumonia on CXR discussed AB with pt and family and they wish to start Tx - will give rocephin 10/05/23 01:[address] Borrego the hospitalist system integration engineer - we agree best to place pt in on obs for touch up and IV ab then advance diet to insure elaine oral meds in am. discussed risks/benefits with pt and family and they also agree best to stay in hosp for obs. 10/05/23 02:05 Discussed with .: Raulito Will see patient in: hospital (observation) Counseled pt/family regarding: lab results, diagnosis, need for follow-up, rad results Medical Desision Making - Independent Historian Additional History obtained from: Spouse - Discussion of managment Care discussed with:: hospitalist Reviewed:: Test results, Need for additional workup Agreed on:: Treatment plan, need for follow-up, decision to admit, place in obs Will see patient: in hospital - Diagnostic Testing Diagnostic test were ordered, analyzed, and reviewed by me: Yes Radiological Interpretation: Reviewed by me - Risk of complications The pt has a mod risk of morbidity or mortality based on: Need for prescription drug management The pt has a high risk of morbidity or mortality based on: Decision regarding hospitilization or escalation of hosp level of care - Departure Departure Disposition: Observation Clinical Impression: Flu-like symptoms, Persistent cough for 3 weeks or longer, Vomiting, Headache, worsening, RLL pneumonia, pneumonia after influenza, nonobstructing renal calculi, Gallstones without obstruction of gallbladder, UTI (urinary tract infection) Condition: Good Critical Care Time: No Referrals: DOCTOR,NO FAMILY [Primary Care Provider] - Follow up/PCP as directed
[2023-10-05] MEDS ORDERED: Zofran 4 MG/2 ML VIAL ONE (00:05)
[2023-10-05] MEDS ORDERED: Pepcid 20 MG VIAL IV ONE (00:06)
[2023-10-05] MEDS ORDERED: Sodium Chloride 0.9% 1000 ML 1,000 ML ONE (00:06)
[2023-10-05] MEDS ORDERED: PROTONIX 40 MG IV IV ONE (00:06)
[2023-10-05 00:11] LABS: Absolute Neutrophil Ct (ANC) 6.38 x10^3/uL (1.4-6.9); BASOPHIL % 0.4 % (0.0-0.4); Basophil (Absolute #) 0.03 x10^3/uL (0-0.4); Eosinophil % 1.9 % (0.00-5.0); Eosinophil (Absolute #) 0.15 x10^3/uL (0-0.5); Hematocrit 42.8 % (35-47); IMMATURE GRAN # 0.02 x10^3u/L (0.00-0.03); IMMATURE GRAN % 0.3 % (0.00-0.4); Lymphocyte (Absolute #) 0.64 x10^3/uL (1.0-4.6); Lymphocytes % 8.2 % (24.0-44.0); Mean Cell Volume 93.7 fL (78-100); Mean Corpuscular Hemoglobin 30.6 pg (26-32); Mean Corpuscular Hgb Concent. 32.7 g/dL (32-36); Mean Platelet Volume 10.4 fL (7.5-11.0); Monocytes % 7.7 % (0.0-12.0); Neutrophil % 81.5 % (36.0-66.0); Platelet Count 362 x10^3/uL (150-450); Red Blood Count 4.57 x10^6/uL (4.1-5.4); White Blood Count 7.8 x10^3/uL (4.0-10.5)
[2023-10-05] MEDS: Sodium Chloride 0.9% 1000 ML 1,000 ML IV STA (00:11)
[2023-10-05] MEDS: Pepcid 20 MG VIAL IV ONE (00:12)
[2023-10-05] MEDS: Zofran 4 MG/2 ML VIAL IV ONE (00:12)
[2023-10-05] MEDS: PROTONIX 40 MG IV IV ONE (00:12)
--- NOTE | 2023-10-05 01:03 | XRAY ---
CLINICAL HISTORY: headache x 1 month worsening TECHNIQUE: Multiple axial images are obtained from the skull base to the vertex without contrast. CT scan was performed according to ALARA (as low as reasonable achievable). COMPARISON: none FINDINGS: There is cerebral atrophy. No evidence of space occupying lesion, hemorrhage, edema, mass effect, midline shift, extra axial collection, or hydrocephalus is noted. Basal cisterns are symmetric and normal in size and configuration. There are scattered periventricular hypodensities as can be seen with chronic microvascular ischemic changes. The andino-white matter differentiation is preserved. Visualized paranasal sinuses and mastoid air cells are well aerated. Orbital contents are within normal limits. Bony structures are intact. IMPRESSION: 1. No evidence of acute intracranial abnormality is demonstrated. 2. Chronic microvascular ischemic changes. 3. Mild Cerebral atrophy. Electronically Signed by: Dr. Jw Chand MD. (10/05/2023 00:58:34 EDT)
[2023-10-05] MEDS ORDERED: ROCEPHIN 1 GM / 100 ML NaCl 1 GM/100 ML IVPB IV ONE (01:04)
--- NOTE | 2023-10-05 01:05 | XRAY ---
CLINICAL HISTORY: abd tenderness and vomiting TECHNIQUE: Contiguous axial images were obtained from the level of the diaphragm to the pubic symphysis without intravenous or oral contrast. Coronal and sagittal reconstructions were likewise performed and indicated to increase the sensitivity for detecting clinically relevant pathology. CT scan was performed according to ALARA (as low as reasonable achievable) COMPARISON: FINDINGS: The visualized lung bases are clear. Evaluation of the abdominal and pelvic visceral organs is limited without intravenous contrast. The unenhanced liver, spleen, pancreas, and adrenal glands are grossly unremarkable. The gallbladder is distended and shows few soft calculi within. No obvious pericholecystic inflammation at present. The kidneys are normal in size and attenuation . right kidney shows nonobstructing calculus of size 2.5 mm lower calyx. Few tiny concretions noted involving left renal mid and lower calyx. There is no hydronephrosis or perinephric stranding. The ureters are normal in caliber. No adenopathy or fluid collections are seen. No evidence of focal or diffuse bowel wall thickening or evidence of bowel obstruction is seen. The appendix is visualized in the right lower quadrant and appears within normal limits. The aorta is normal in caliber. The urinary bladder is normal in contour. Pelvic viscera are grossly unremarkable. No aggressive appearing osseous lesions are identified. IMPRESSION: Uncomplicated cholelithiasis. Small nonobstructing right renal calculus and left renal concretions. Electronically Signed by: Dr. Jw Chand MD. (10/05/2023 01:01:11 EDT)
[2023-10-05] MEDS: ROCEPHIN 1 GM / 100 ML NaCl 1 GM/100 ML IVPB IV ONE (01:07)
[2023-10-05 01:17] LABS: ADD URINE CULTURE? YES (NO); Appearance Clear (Clear); Bacteria Rare /HPF (None Seen); Bilirubin Negative (Negative); Blood Negative (Negative); Epithelial Cells Moderate /HPF (None Seen); Glucose, Urine Negative (Negative); Hyaline Casts NONE SEEN /LPF (0-2); Ketones Negative (Negative); Leukocyte Esterase Large (Negative); Nitrite Negative (Negative); Protein,Urine Dip Negative (Negative); RBC 0-2 /HPF (0-5); Specific Gravity 1.015 (1.005-1.030); Urobilinogen 0.2 mg/dL (0.2)
[2023-10-05 01:18] LABS: HCG SERUM TEST NEGATIVE (NEGATIVE)
[2023-10-05 01:30] LABS: ALBUMIN 4.2 g/dL (3.5-5.0); ALKALINE PHOSPHATASE 99 U/L (38-126); AMYLASE 70 U/L (30-110); BLOOD UREA NITROGEN 10 mg/dL (7-17); CHLORIDE 106 mmol/L (98-107); Calcium 9.2 mg/dL (8.4-10.2); Carbon Dioxide 24 mmol/L (22-30); Creatinine 1 0.88 mg/dL (0.52-1.04); EST GLOMERULAR FILTRATION RATE 76.1 ML/MIN; Glucose 118 mg/dL (74-106); LIPASE 95 U/L (23-300); NT PRO BNPII 484 pg/mL (<300); Potassium 4.2 mmol/L (3.5-5.1); SGOT/AST 21 U/L (14-36); SGPT/ALT 20 U/L (0-35); SODIUM 140 mmol/L (135-145); TROPONIN < 0.012 ng/mL (0.000-0.034); Total Protein 7.4 g/dL (6.3-8.2)
[2023-10-05] MEDS ORDERED: APRESOLINE 20 MG/ML INJ ONE (01:49)
[2023-10-05] MEDS: APRESOLINE 20 MG/ML INJ IV ONE ×2 (01:50→02:53)
[2023-10-05] MEDS ORDERED: DUONEB 0.5-3 MG/3 ml Neb IH PRN (02:29)
--- NOTE | 2023-10-05 02:39 | PCM.HP ---
History of Present Illness - Chief Complaint Chief Complaint: Pneumonia History of Present Illness: is a 58 year old female with history of HTN presented with c/o nagging cough x 2 weeks. Had the flu 2 weeks ago, gotten better, but still has this cough. Treated with Zpak at home but still not better. No fever or chills. Cough is mostly non-productive. Thnen lasgt few days started having nausea and vomiting, and unable to keep food nor medications down. Came in with high BP. Imaging studies show RLL infiltrate, Covid and flu negative here. So, admitting her for RLL pneumonia, cough with nausea, and vomiting, and uncontrolled HTN I saw the pt via telemedicine. She is currently resting, comfortable, not septic on my exam - Review of Systems Constitutional: Fatigue Eyes: No Symptoms Ears, Nose, & Throat: No Symptoms Respiratory: Cough Cardiac: No Symptoms Abdominal/Gastrointestinal: Nausea, Vomiting Genitourinary Symptoms: No Symptoms Musculoskeletal: No Symptoms Neurological: No Symptoms Psychological: No Symptoms Endocrine: No Symptoms Hematologic/Lymphatic: No Symptoms Immunological/Allergic: No Symptoms Medications & Allergies Home Medications: Home Medication List Lisinopril 10 mg [Zestril 10 MG] 40 mg PO DAILY 09/20/14 [History Confirmed 10/04/23] hydroCHLOROthiazide [Hydrochlorothiazide] 12.5 mg PO DAILY 03/16/23 [History Confirmed 10/04/23] Metoprolol Succinate 100 mg [Toprol Xl 100 MG] 100 mg PO DAILY 10/04/23 [History Confirmed 10/04/23] Allergies/Adverse Reactions: Allergies Allergy/AdvReac Type Severity Reaction Status Date / Time latex Allergy Mild Rash Verified 03/16/23 21:27 tape Allergy Mild Rash Uncoded 03/16/23 21:27 - Past Medical History Past Medical History: Yes Neurological History: Migraines ENT History: No Pertinent History Cardiac History: Hypertension Respiratory History: No Pertinent History Endocrine Medical History: No Pertinent History Musculoskelatal History: No Pertinent History GI Medical History: GERD History: No Pertinent History Pyscho-Social History: No Pertinent History Reproductive Disorders: No Pertinent History - Past Surgical History Past Surgical History: Yes Neuro Surgical History: No Pertinent History Cardiac History: No Pertinent History Respiratory Surgery: No Pertinent History GI Surgical History: No Pertinent History Genitourinary Surgical Hx: No Pertinent History Musculskeletal Surgical Hx: Orthopedic Surgery Female Surgical History: Tubal Ligation, Other Other Surgical History: CYST REMOVED FROM LEFT WRIST Significant Family History: no pertinent family hx - Social History Smoking Status: Former smoker Exposure to second hand smoke: No Alcohol: Occasionally Drug Use: other - Physical Exam Vital Signs: Vital Signs - 24 hr Temp Pulse Resp BP BP Pulse Ox 10/05/23 02:15 109 H 16 185/110 95 10/05/23 02:07 93 L 10/05/23 02:00 110 H 18 196/107 94 L 10/05/23 01:45 93 H 17 207/110 92 L 10/05/23 01:03 95 H 18 192/104 92 L 10/05/23 00:00 103 H 17 180/107 92 L 10/04/23 23:30 104 H 18 189/103 93 L 10/04/23 23:27 98.5 F 115 H 18 194/108 93 L General Appearance: no apparent distress, alert Neurologic Exam: alert, oriented x 3, cooperative, normal mood/affect Eye Exam: PERRL/EOMI, eyes nml inspection Ears, Nose, Throat Exam: normal ENT inspection Neck Exam: normal inspection, supple, full range of motion Respiratory Exam: normal breath sounds, lungs clear, airway intact Cardiovascular Exam: regular rate/rhythm, normal heart sounds Gastrointestinal/Abdomen Exam: soft, normal bowel sounds Pelvic Exam: deferred Rectal Exam: deferred Back Exam: normal inspection Extremity Exam: normal inspection Skin Exam: normal color Results - Labs Lab/Micro Results: Lab Results-Last 24 Hours 10/04/23 10/04/23 10/04/23 Range/Units 01:00 01:00 01:00 WBC (4.0-10.5) x10^3/uL RBC (4.1-5.4) x10^6/uL Hgb (12.0-16.0) g/dL Hct (35-47) % MCV (78-100) fL MCH (26-32) pg MCHC (32-36) g/dL RDW (11.5-14.0) % Plt Count (150-450) x10^3/uL MPV (7.5-11.0) fL Gran % (36.0-66.0) % Immature Gran % (Auto) (0.00-0.4) % Nucleat RBC Rel Count (0.00-0.1) % Eos # (Auto) (0-0.5) x10^3/uL Immature Gran # (Auto) (0.00-0.03) x10^3u/L Absolute Lymphs (auto) (1.0-4.6) x10^3/uL Absolute Monos (auto) (0.0-1.3) x10^3/uL Absolute Nucleated RBC (0.00-0.01) x10^3u/L Lymphocytes % (24.0-44.0) % Monocytes % (0.0-12.0) % Eosinophils % (0.00-5.0) % Basophils % (0.0-0.4) % Absolute Granulocytes (1.4-6.9) x10^3/uL Basophils # (0-0.4) x10^3/uL ESR (0-20) mm/hr Sodium 140 (135-145) mmol/L Potassium 4.2 (3.5-5.1) mmol/L Chloride 106 (98-107) mmol/L Carbon Dioxide 24 (22-30) mmol/L Anion Gap 14.0 (5-15) MEQ/L BUN 10 (7-17) mg/dL Creatinine 0.88 (0.52-1.04) mg/dL Estimated GFR 76.1 ML/MIN Glucose 118 H (74-106) mg/dL Lactic Acid (0.4-2.0) Calcium 9.2 (8.4-10.2) mg/dL Total Bilirubin 0.60 (0.2-1.3) mg/dL AST 21 (14-36) U/L ALT 20 (0-35) U/L Alkaline Phosphatase 99 (38-126) U/L Troponin I < 0.012 (0.000-0.034) ng/mL NT-Pro-B Natriuret Pep 484 (<300) pg/mL Serum Total Protein 7.4 (6.3-8.2) g/dL Albumin 4.2 (3.5-5.0) g/dL Amylase 70 (30-110) U/L Lipase 95 (23-300) U/L Free T4 (0.78-2.19) ng/dL TSH 3rd Generation 0.837 (0.47-4.68) mIU/L Serum HCG, Qual NEGATIVE (NEGATIVE) Urine Color (Yellow) Urine Appearance (Clear) Urine pH (4.6-8.0) Ur Specific [place] (1.005-1.030) Urine Protein (Negative) Urine Glucose (UA) (Negative) mg/dL Urine Ketones (Negative) Urine Blood (Negative) Urine Nitrite (Negative) Urine Bilirubin (Negative) Urine Urobilinogen (0.2) mg/dL Ur Leukocyte Esterase (Negative) U Hyaline Cast (Auto) (0-2) /LPF Urine Microscopic RBC (0-5) /HPF Urine Microscopic WBC (0-5) /HPF Ur Epithelial Cells (None Seen) /HPF Urine Bacteria (None Seen) /HPF Urine Culture Reflexed (NO) Monoscreen (NEGATIVE) 10/05/23 10/05/23 10/05/23 Range/Units 00:00 00:05 00:05 WBC 7.8 (4.0-10.5) x10^3/uL RBC 4.57 (4.1-5.4) x10^6/uL Hgb 14.0 (12.0-16.0) g/dL Hct 42.8 (35-47) % MCV 93.7 (78-100) fL MCH 30.6 (26-32) pg MCHC 32.7 (32-36) g/dL RDW 13.0 (11.5-14.0) % Plt Count 362 (150-450) x10^3/uL MPV 10.4 (7.5-11.0) fL Gran % 81.5 H (36.0-66.0) % Immature Gran % (Auto) 0.3 (0.00-0.4) % Nucleat RBC Rel Count 0.0 (0.00-0.1) % Eos # (Auto) 0.15 (0-0.5) x10^3/uL Immature Gran # (Auto) 0.02 (0.00-0.03) x10^3u/L Absolute Lymphs (auto) 0.64 L (1.0-4.6) x10^3/uL Absolute Monos (auto) 0.60 (0.0-1.3) x10^3/uL Absolute Nucleated RBC 0.00 (0.00-0.01) x10^3u/L Lymphocytes % 8.2 L (24.0-44.0) % Monocytes % 7.7 (0.0-12.0) % Eosinophils % 1.9 (0.00-5.0) % Basophils % 0.4 (0.0-0.4) % Absolute Granulocytes 6.38 (1.4-6.9) x10^3/uL Basophils # 0.03 (0-0.4) x10^3/uL ESR 47 H (0-20) mm/hr Sodium (135-145) mmol/L Potassium (3.5-5.1) mmol/L Chloride (98-107) mmol/L Carbon Dioxide (22-30) mmol/L Anion Gap (5-15) MEQ/L BUN (7-17) mg/dL Creatinine (0.52-1.04) mg/dL Estimated GFR ML/MIN Glucose (74-106) mg/dL Lactic Acid (0.4-2.0) Calcium (8.4-10.2) mg/dL Total Bilirubin (0.2-1.3) mg/dL AST (14-36) U/L ALT (0-35) U/L Alkaline Phosphatase (38-126) U/L Troponin I (0.000-0.034) ng/mL NT-Pro-B Natriuret Pep (<300) pg/mL Serum Total Protein (6.3-8.2) g/dL Albumin (3.5-5.0) g/dL Amylase (30-110) U/L Lipase (23-300) U/L Free T4 0.98 (0.78-2.19) ng/dL TSH 3rd Generation (0.47-4.68) mIU/L Serum HCG, Qual (NEGATIVE) Urine Color (Yellow) Urine Appearance (Clear) Urine pH (4.6-8.0) Ur Specific [place] (1.005-1.030) Urine Protein (Negative) Urine Glucose (UA) (Negative) mg/dL Urine Ketones (Negative) Urine Blood (Negative) Urine Nitrite (Negative) Urine Bilirubin (Negative) Urine Urobilinogen (0.2) mg/dL Ur Leukocyte Esterase (Negative) U Hyaline Cast (Auto) (0-2) /LPF Urine Microscopic RBC (0-5) /HPF Urine Microscopic WBC (0-5) /HPF Ur Epithelial Cells (None Seen) /HPF Urine Bacteria (None Seen) /HPF Urine Culture Reflexed (NO) Monoscreen (NEGATIVE) 10/05/23 10/05/23 10/05/23 Range/Units 00:10 00:55 01:00 WBC (4.0-10.5) x10^3/uL RBC (4.1-5.4) x10^6/uL Hgb (12.0-16.0) g/dL Hct (35-47) % MCV (78-100) fL MCH (26-32) pg MCHC (32-36) g/dL RDW (11.5-14.0) % Plt Count (150-450) x10^3/uL MPV (7.5-11.0) fL Gran % (36.0-66.0) % Immature Gran % (Auto) (0.00-0.4) % Nucleat RBC Rel Count (0.00-0.1) % Eos # (Auto) (0-0.5) x10^3/uL Immature Gran # (Auto) (0.00-0.03) x10^3u/L Absolute Lymphs (auto) (1.0-4.6) x10^3/uL Absolute Monos (auto) (0.0-1.3) x10^3/uL Absolute Nucleated RBC (0.00-0.01) x10^3u/L Lymphocytes % (24.0-44.0) % Monocytes % (0.0-12.0) % Eosinophils % (0.00-5.0) % Basophils % (0.0-0.4) % Absolute Granulocytes (1.4-6.9) x10^3/uL Basophils # (0-0.4) x10^3/uL ESR (0-20) mm/hr Sodium (135-145) mmol/L Potassium (3.5-5.1) mmol/L Chloride (98-107) mmol/L Carbon Dioxide (22-30) mmol/L Anion Gap (5-15) MEQ/L BUN (7-17) mg/dL Creatinine (0.52-1.04) mg/dL Estimated GFR ML/MIN Glucose (74-106) mg/dL Lactic Acid 1.1 (0.4-2.0) Calcium (8.4-10.2) mg/dL Total Bilirubin (0.2-1.3) mg/dL AST (14-36) U/L ALT (0-35) U/L Alkaline Phosphatase (38-126) U/L Troponin I (0.000-0.034) ng/mL NT-Pro-B Natriuret Pep (<300) pg/mL Serum Total Protein (6.3-8.2) g/dL Albumin (3.5-5.0) g/dL Amylase (30-110) U/L Lipase (23-300) U/L Free T4 (0.78-2.19) ng/dL TSH 3rd Generation (0.47-4.68) mIU/L Serum HCG, Qual (NEGATIVE) Urine Color Yellow (Yellow) Urine Appearance Clear (Clear) Urine pH 8.0 (4.6-8.0) Ur Specific [place] 1.015 (1.005-1.030) Urine Protein Negative (Negative) Urine Glucose (UA) Negative (Negative) mg/dL Urine Ketones Negative (Negative) Urine Blood Negative (Negative) Urine Nitrite Negative (Negative) Urine Bilirubin Negative (Negative) Urine Urobilinogen 0.2 (0.2) mg/dL Ur Leukocyte Esterase Large A (Negative) U Hyaline Cast (Auto) NONE SEEN (0-2) /LPF Urine Microscopic RBC 0-2 (0-5) /HPF Urine Microscopic WBC 11-20 A (0-5) /HPF Ur Epithelial Cells Moderate A (None Seen) /HPF Urine Bacteria Rare A (None Seen) /HPF Urine Culture Reflexed YES (NO) Monoscreen NEGATIVE (NEGATIVE) - Radiology Impressions Radiology Exams & Impressions: Radiology Procedures Category Date Time Status ABDOMEN AND PELVIS W/0 CONTRAS [CT] Stat Exams 10/04/23 23:58 Completed CHEST 2 VIEWS (PA AND LAT) Stat Exams 10/04/23 23:58 Taken HEAD WITHOUT CONTRAST [CT] Stat Exams 10/05/23 00:20 Completed Assessment/Plan (1) RLL pneumonia Current Visit: Yes Status: Acute Assessment & Plan: RLL infiltrate seen on CXR, has cough. Due to nausea and vomiting, unable to take oral meds. Plan IV rocephin 1gm daily. Cultures sent. Plan to treat N/V and change to oral in AM, if possible. Albuterol updraft if needed. Although she is currently on room air, no wheezing Code(s): J18.9 - PNEUMONIA, UNSPECIFIED ORGANISM (2) Essential (primary) hypertension Current Visit: Yes Status: Acute Assessment & Plan: BP is elevated, likely due to the fact she has not been able to keep anything down, including her oral home BP meds. IV hydralazine prn. Resume home meds. I would hold Lisinopril as this can also cause a non-productive cough, and she has this cough for 2-3 weeks already Code(s): I10 - ESSENTIAL (PRIMARY) HYPERTENSION (3) Persistent cough for 3 weeks or longer Current Visit: Yes Status: Acute Assessment & Plan: Could be due to the PNA, and or the ACEI. I am holding Lisinopril for now to see if this am help. Code(s): R05.3 - CHRONIC COUGH (4) Vomiting Current Visit: Yes Status: Acute Assessment & Plan: N/V - UA noted, + LE, bacteria. rocephin should take care of this as well. She has no symptom. CT abd also shows non-obstructing kidney stone, and gallbladder sludge/cholelithiasis. Again, no abdominal pain. Does have nusea and vomiting Code(s): R11.10 - VOMITING, UNSPECIFIED Telemedicine Encounter - Telemedicine Encounter Telemedicine Encounter: The entirety of this encounter was performed via Telemedicine" The pt gave me verbal consent to have this telemedicine visit
[2023-10-05] MEDS: TYLENOL 325 MG PO PRN (02:53)
[2023-10-05] MEDS: ROCEPHIN 1 GM / 100 ML NaCl 1 GM/100 ML IVPB IV SCH ×2 (05:27→21:22)
--- NOTE | 2023-10-05 08:13 | XRAY ---
Indication: Persistent cough. Flu. Comparison: None PA/lateral chest demonstrates minimal right lower lobe infiltrate/atelectasis without consolidation/large effusion. Remaining heart and left lung unremarkable. Bony thorax intact with mild degenerative changes.
[2023-10-05] MEDS: Zofran 4 MG/2 ML VIAL IV PRN (08:54)
[2023-10-05 11:04] LABS: INFLUENZA A NEGATIVE (NEGATIVE); INFLUENZA B NEGATIVE (NEGATIVE); RESPIRATORY SYNCTIAL VIRUS NEGATIVE (NEGATIVE); SARS-CoV-2 Xpert Express NEGATIVE (NEGATIVE)
[2023-10-05] MEDS: NORVASC 5 MG PO SCH (11:17)
[2023-10-05] MEDS: Compazine 10 MG/2 ML IV PRN (11:32)
[2023-10-05] MEDS: hydroDIURIL 25 MG PO SCH (16:30)
[2023-10-05] MEDS: ENOXAPARIN SODIUM SQ SCH (16:31)
[2023-10-05] MEDS: Toprol Xl 100 MG PO SCH (16:31)
[2023-10-06 04:43] LABS: Hematocrit 43.8 % (35-47); Hemoglobin 14.4 g/dL (12.0-16.0); Mean Cell Volume 92.6 fL (78-100); Mean Corpuscular Hemoglobin 30.4 pg (26-32); Mean Corpuscular Hgb Concent. 32.9 g/dL (32-36); Platelet Count 345 x10^3/uL (150-450); Red Blood Count 4.73 x10^6/uL (4.1-5.4); Red Cell Distribution Width 13.7 % (11.5-14.0); White Blood Count 6.1 x10^3/uL (4.0-10.5)
[2023-10-06 05:01] LABS: ALBUMIN 4.1 g/dL (3.5-5.0); ANION GAP 12.4 MEQ/L (5-15); BILIRUBIN,TOTAL 0.5 mg/dL (0.2-1.3); Calcium 9.2 mg/dL (8.4-10.2); Creatinine 1 1.13 mg/dL (0.52-1.04); EST GLOMERULAR FILTRATION RATE 56.4 ML/MIN; Potassium 3.6 mmol/L (3.5-5.1); Total Protein 7.4 g/dL (6.3-8.2)
[2023-10-06] MEDS: APRESOLINE 20 MG/ML INJ IV PRN (05:05)
--- NOTE | 2023-10-06 05:08 | PCM.NOTE ---
Date and Time: 10/06/23 0506 Subjective Assessment: Nayla Mayes is a 58 yo female with a pmhx of migraines, HTN, and GERD admitted 10/05/23 for RLL pneumonia, vomiting, and UTI (no growth to date on culture). Current treatment with Rocephin and azithromycin. Patient at baseline RA but has been unable to keep oral medications down including her blood p ressure medications. Patient also endorses chronic cough and her lisinopril has been held during hospital course which has helped. BP has been elevated, when patient is able to tolerate oral medications, will start amlodipine. CT abdomen did show non-obstructing kidney stone, gallbladder sludge, and uncomplicated cholelithiasis. Patient with continued nause, surgery consult/US of the abdomen has been ordered for today. 09/19/23: Met with patient bedside. Endorses headache, [employer] cough, and nausea, no vomiting. Patient states cough is improved since lisinopril has been held. Lungs clear on auscultation. Plan for US of the abdomen today, surgery consult, will continue IVF/anti-emetics. <MARK WHITE - Last Filed: 10/06/23 10:00> Date and Time: 10/07/23 0604 <HAI WEEKS - Last Filed: 10/07/23 06:05> - Review of Systems Constitutional: No Symptoms Eyes: No Symptoms Ears, Nose, & Throat: No Symptoms Respiratory: Cough Cardiac: No Symptoms Abdominal/Gastrointestinal: Nausea Genitourinary Symptoms: No Symptoms Musculoskeletal: No Symptoms Skin: No Symptoms Neurological: No Symptoms Psychological: No Symptoms Endocrine: No Symptoms Hematologic/Lymphatic: No Symptoms Immunological/Allergic: No Symptoms <MARK WHITE - Last Filed: 10/06/23 10:00> Objective Exam General Appearance: no apparent distress Neurologic Exam: alert, oriented x 3, cooperative Skin Exam: normal color Eye Exam: PERRL Ears, Nose, Throat Exam: normal ENT inspection Neck Exam: normal inspection Respiratory Exam: normal breath sounds, lungs clear Cardiovascular Exam: regular rate/rhythm, normal heart sounds Gastrointestinal/Abdomen Exam: soft, normal bowel sounds, tenderness (TTP x 4 quads) Extremity Exam: normal inspection Back Exam: normal inspection Pelvic Exam: deferred Rectal Exam: deferred <CHRISTOPHER,MARK L. - Last Filed: 10/06/23 10:00> Objective Data Vital Signs: Vital Signs - 24 hr Temp Pulse Resp BP Pulse Ox 10/06/23 05:00 99.2 F 79 18 180/94 94 L 10/06/23 01:00 16 93 L 10/05/23 21:22 87 145/81 10/05/23 19:00 99.7 F 89 18 189/84 94 L 10/05/23 15:00 97.7 F 95 H 16 152/85 98 10/05/23 11:16 97.5 F 103 H 15 144/81 95 10/05/23 08:00 97.8 F 96 H 13 142/76 90 L 10/05/23 07:28 97.8 F 96 H 13 142/76 90 L 10/05/23 06:48 101 H 18 90 L Pain Assessment - Last Documented Pain Intensity 7 Pain Scale Used 0-10 Pain Scale Intake and Output: Intake & Output 10/03/23 10/04/23 10/05/23 10/06/23 11:59 11:59 11:59 11:59 Intake Total 280 Output Total 1 Balance -1 280 Weight 103.5 kg Lab Results: Lab Results-Last 24 Hours 10/05/23 10/05/23 10/05/23 Range/Units 05:18 07:30 10:15 WBC (4.0-10.5) x10^3/uL RBC (4.1-5.4) x10^6/uL Hgb (12.0-16.0) g/dL Hct (35-47) % MCV (78-100) fL MCH (26-32) pg MCHC (32-36) g/dL RDW (11.5-14.0) % Plt Count (150-450) x10^3/uL MPV (7.5-11.0) fL Hemoglobin A1c 5.60 (4.5-6.0) % Troponin I < 0.012 (0.000-0.034) ng/mL Influenza Type A Ag NEGATIVE (NEGATIVE) Influenza Type B Ag NEGATIVE (NEGATIVE) RSV (PCR) NEGATIVE (NEGATIVE) SARS-CoV-2 (PCR) NEGATIVE (NEGATIVE) 10/06/23 Range/Units 04:20 WBC 6.1 (4.0-10.5) x10^3/uL RBC 4.73 (4.1-5.4) x10^6/uL Hgb 14.4 (12.0-16.0) g/dL Hct 43.8 (35-47) % MCV 92.6 (78-100) fL MCH 30.4 (26-32) pg MCHC 32.9 (32-36) g/dL RDW 13.7 (11.5-14.0) % Plt Count 345 (150-450) x10^3/uL MPV 10.0 (7.5-11.0) fL Hemoglobin A1c (4.5-6.0) % Troponin I (0.000-0.034) ng/mL Influenza Type A Ag (NEGATIVE) Influenza Type B Ag (NEGATIVE) RSV (PCR) (NEGATIVE) SARS-CoV-2 (PCR) (NEGATIVE) Radiology Exams: Radiology Procedures Category Date Time Status ABDOMEN AND PELVIS W/0 CONTRAS [CT] Stat Exams 10/04/23 23:58 Completed ABDOMINAL-LIMITED [US] Routine Exams 10/06/23 07:50 Ordered CHEST 2 VIEWS (PA AND LAT) Stat Exams 10/04/23 23:58 Completed HEAD WITHOUT CONTRAST [CT] Stat Exams 10/05/23 00:20 Completed <MARK WHITE - Last Filed: 10/06/23 10:00> Vital Signs: Vital Signs - 24 hr Temp Pulse Resp BP Pulse Ox 10/07/23 05:00 97.1 F 70 16 140/75 95 10/06/23 23:33 98.2 F 76 16 134/71 91 L 10/06/23 19:20 97.5 F 95 H 16 141/73 92 L 10/06/23 19:12 93 H 22 95 10/06/23 18:22 97.8 F 83 12 171/80 93 L 10/06/23 18:20 65 16 185/79 94 L 10/06/23 17:20 97.9 F 77 17 142/69 96 10/06/23 17:05 97.6 F 73 17 177/78 94 L 10/06/23 16:45 97.8 F 79 17 164/77 94 L 10/06/23 16:30 97.6 F 69 17 142/69 96 10/06/23 15:26 71 22 95 10/06/23 12:49 97.6 F 85 17 153/82 95 10/06/23 12:00 97.6 F 85 17 153/82 95 10/06/23 08:21 86 16 96 10/06/23 07:43 98.7 F 86 18 131/71 95 Pain Assessment - Last Documented Pain Intensity 3 Pain Scale Used 0-10 Pain Scale Intake and Output: Intake & Output 10/04/23 10/05/23 10/06/23 10/07/23 11:59 11:59 11:59 11:59 Intake Total 280 863 Output Total 1 Balance -1 280 863 Weight 103.5 kg 103.5 kg Lab Results: Lab Results-Last 24 Hours 10/06/23 10/06/23 10/07/23 Range/Units 19:00 19:00 04:30 WBC 9.5 8.1 (4.0-10.5) x10^3/uL RBC 4.86 4.81 (4.1-5.4) x10^6/uL Hgb 15.1 14.6 (12.0-16.0) g/dL Hct 45.4 44.8 (35-47) % MCV 93.4 93.1 (78-100) fL MCH 31.1 30.4 (26-32) pg MCHC 33.3 32.6 (32-36) g/dL RDW 13.7 13.6 (11.5-14.0) % Plt Count 320 369 (150-450) x10^3/uL MPV 9.6 10.2 (7.5-11.0) fL Gran % 87.9 H (36.0-66.0) % Immature Gran % (Auto) 0.5 H (0.00-0.4) % Nucleat RBC Rel Count 0.0 (0.00-0.1) % Eos # (Auto) 0 (0-0.5) x10^3/uL Immature Gran # (Auto) 0.05 H (0.00-0.03) x10^3u/L Absolute Lymphs (auto) 0.80 L (1.0-4.6) x10^3/uL Absolute Monos (auto) 0.29 (0.0-1.3) x10^3/uL Absolute Nucleated RBC 0.00 (0.00-0.01) x10^3u/L Lymphocytes % 8.4 L (24.0-44.0) % Monocytes % 3.0 (0.0-12.0) % Eosinophils % 0.0 (0.00-5.0) % Basophils % 0.2 (0.0-0.4) % Absolute Granulocytes 8.36 H (1.4-6.9) x10^3/uL Basophils # 0.02 (0-0.4) x10^3/uL Sodium 136 (135-145) mmol/L Potassium 4.1 (3.5-5.1) mmol/L Chloride 101 (98-107) mmol/L Carbon Dioxide 25 (22-30) mmol/L Anion Gap 13.5 (5-15) MEQ/L BUN 13 (7-17) mg/dL Creatinine 0.90 (0.52-1.04) mg/dL Estimated GFR 74.1 ML/MIN Glucose 135 H (74-106) mg/dL Calcium 9.2 (8.4-10.2) mg/dL Total Bilirubin 0.50 (0.2-1.3) mg/dL AST 37 H (14-36) U/L ALT 31 (0-35) U/L Alkaline Phosphatase 90 (38-126) U/L Serum Total Protein 7.5 (6.3-8.2) g/dL Albumin 4.0 (3.5-5.0) g/dL Procalcitonin (0.030-0.080) ng/mL 10/07/23 10/07/23 Range/Units 04:30 04:51 WBC (4.0-10.5) x10^3/uL RBC (4.1-5.4) x10^6/uL Hgb (12.0-16.0) g/dL Hct (35-47) % MCV (78-100) fL MCH (26-32) pg MCHC (32-36) g/dL RDW (11.5-14.0) % Plt Count (150-450) x10^3/uL MPV (7.5-11.0) fL Gran % (36.0-66.0) % Immature Gran % (Auto) (0.00-0.4) % Nucleat RBC Rel Count (0.00-0.1) % Eos # (Auto) (0-0.5) x10^3/uL Immature Gran # (Auto) (0.00-0.03) x10^3u/L Absolute Lymphs (auto) (1.0-4.6) x10^3/uL Absolute Monos (auto) (0.0-1.3) x10^3/uL Absolute Nucleated RBC (0.00-0.01) x10^3u/L Lymphocytes % (24.0-44.0) % Monocytes % (0.0-12.0) % Eosinophils % (0.00-5.0) % Basophils % (0.0-0.4) % Absolute Granulocytes (1.4-6.9) x10^3/uL Basophils # (0-0.4) x10^3/uL Sodium 137 (135-145) mmol/L Potassium 4.0 (3.5-5.1) mmol/L Chloride 103 (98-107) mmol/L Carbon Dioxide 25 (22-30) mmol/L Anion Gap 12.7 (5-15) MEQ/L BUN 15 (7-17) mg/dL Creatinine 0.91 (0.52-1.04) mg/dL Estimated GFR 73.1 ML/MIN Glucose 128 H (74-106) mg/dL Calcium 9.2 (8.4-10.2) mg/dL Total Bilirubin 0.40 (0.2-1.3) mg/dL AST 33 (14-36) U/L ALT 30 (0-35) U/L Alkaline Phosphatase 81 (38-126) U/L Serum Total Protein 7.4 (6.3-8.2) g/dL Albumin 3.9 (3.5-5.0) g/dL Procalcitonin 0.060 (0.030-0.080) ng/mL Radiology Exams: Radiology Procedures Category Date Time Status ABDOMINAL-LIMITED [US] Routine Exams 10/06/23 07:50 Completed Multi-Disciplinary Progress Notes: Multi-Disciplinary Progress Notes 10/06/23 15:47 Respiratory Note by Swathi Boyd ALBUTEROL BREATHING TREATMENT GIVEN IN PACU. Initialized on 10/06/23 15:47 - END OF NOTE <HAI WEEKS - Last Filed: 10/07/23 06:05> Assessment/Plan (1) RLL pneumonia Current Visit: Yes Status: Acute Assessment & Plan: RLL infiltrate seen on CXR, has cough. Due to nausea and vomiting, unable to take oral meds. Plan IV rocephin 1gm daily. Cultures sent. Plan to treat N/V and change to oral in AM, if possible. Albuterol updraft if needed. Although she is currently on room air, no wheezing 10/05: -RA -Continue rocephin/azith -Supplemental oxygen with goal spo2 > 92% -RT eval with Nebs/INH Code(s): J18.9 - PNEUMONIA, UNSPECIFIED ORGANISM (2) Essential (primary) hypertension Current Visit: Yes Status: Acute Assessment & Plan: BP is elevated, likely due to the fact she has not been able to keep anything down, including her oral home BP meds. IV hydralazine prn. Resume home meds. I would hold Lisinopril as this can also cause a non-productive cough, and she has this cough for 2-3 weeks already 10/05: -Will d/c lisinopril, add amlodipine Code(s): I10 - ESSENTIAL (PRIMARY) HYPERTENSION (3) Persistent cough for 3 weeks or longer Current Visit: Yes Status: Acute Assessment & Plan: Could be due to the PNA, and or the ACEI. I am holding Lisinopril for now to see if this am help. 10/05: -Cough improved with discontinuation of ACEI, will add amlodipine for BP Code(s): R05.3 - CHRONIC COUGH (4) Vomiting Current Visit: Yes Status: Acute Assessment & Plan: N/V - UA noted, + LE, bacteria. rocephin should take care of this as well. She has no symptom. CT abd also shows non-obstructing kidney stone, and gallbladder sludge/cholelithiasis. Again, no abdominal pain. Does have nusea and vomiting 10/05: -Nausea contnued, US ordered yesterday, completed today. -Surgery consult as pt has not been able to tolerate oral intake -Ucult with NGTD Code(s): R11.10 - VOMITING, UNSPECIFIED Code(s): J18.9 - PNEUMONIA, UNSPECIFIED ORGANISM (2) Essential (primary) hypertension Current Visit: Yes Status: Acute Code(s): I10 - ESSENTIAL (PRIMARY) HYPERTENSION (3) Persistent cough for 3 weeks or longer Current Visit: Yes Status: Acute Code(s): R05.3 - CHRONIC COUGH (4) Vomiting Current Visit: Yes Status: Acute Code(s): R11.10 - VOMITING, UNSPECIFIED <MARK WHITE - Last Filed: 10/06/23 10:00> NORA Encounter - NORA Encounter Attestation NORA Encounter Attestation: "IhavepersonallyseenandexThangMARIA DEL CARMENVERONIQUEDACIA ANA on 10/06/2023 andhavediscussed pertinent aspects of their care with [ ]and agree with the history, physical exam (any modifications based on my personal exam will be noted below), assessment, and plan as outlined in original note. Please see immediately below for my summary of findings and additional assessment and plan along with any meaningful corrections/explanations to the Subjective/Objective portions of the NORA note will be noted." My portion of the encounter took place via telemedicine. -Patient's vomiting had resolved but she still had some nausea. Abdominal US consistent with chronic cholecystitis. Await surgery consult. Complete an tibiotics for possible pneumonia. <HAI WEEKS - Last Filed: 10/07/23 06:05>
[2023-10-06] MEDS: Zithromax 500 MG/ 250 ML NaCl Premix 500 MG/250 ML IVPB IV SCH (09:52)
--- NOTE | 2023-10-06 10:26 | XRAY ---
Indication: Distended gallbladder. Vomiting. Two-dimensional right upper quadrant abdominal sonogram performed. Comparison: None Pancreas obscured due to overlying bowel gas. Visualized gallbladder normally distended with wall echo shadow sign favoring cholelithiasis. Abnormal gallbladder wall thickening up to 3.9 mm. No pericholecystic fluid. Common bile duct measures 3.8 mm. No intrahepatic biliary distention. Remaining visualized liver and right kidney are sonographically unremarkable. Right kidney measures 9.7 x 5.2 x 3.370. Impression: 1. Nonvisualization pancreas. 2. Cholelithiasis with abnormal gallbladder wall thickening. Rule out chronic cholecystitis.
[2023-10-06] MEDS: MEFOXIN 2 GM PREMIX** 2 GM/50 ML ML IV SCH (13:16)
[2023-10-06] MEDS: Lactated Ringers 1,000 ML IV SCH (13:16)
[2023-10-06] MEDS ORDERED: Sensorcaine 0.25% 10 ML ONE (13:30)
[2023-10-06] MEDS ORDERED: ROCURONIUM BROMIDE IV ONE (13:50)
[2023-10-06] MEDS ORDERED: DIPRIVAN 200 MG/20 ML IV ONE (13:50)
[2023-10-06] MEDS ORDERED: Zofran 4 MG/2 ML VIAL ONE (13:50)
[2023-10-06] MEDS ORDERED: TORAdol 30 mg Injection ONE (13:50)
[2023-10-06] MEDS ORDERED: Decadron 4 MG INJ ONE (13:50)
[2023-10-06] MEDS ORDERED: SUBLIMAZE 100 MCG/2 ML ONE ×2 (13:50→15:41)
[2023-10-06] MEDS ORDERED: Quelicin Fliptop 200 MG/10 ML ONE (13:56)
[2023-10-06] MEDS ORDERED: Versed 2 MG/2 ML Injection ONE (13:57)
[2023-10-06] MEDS ORDERED: PHENYLEPHRINE HCL ONE (14:33)
--- NOTE | 2023-10-06 14:34 | CONS ---
CONSULT DATE: 10/06/2023 HISTORY: The patient is a 58-year-old. She had influenza-B a month or so with some bronchitis, coughing, headache and had some vomiting. She had a little vague right-side abdominal aches and pains. She had been in the hospital for a couple of days. They just did an ultrasound today that showed some cholelithiaisis and some wall thickening. Liver function test reportedly okay. Lipase is not significantly elevated. PAST MEDICAL HISTORY: Migraines, hypertension, gastroesophageal reflux disease. PAST SURGICAL HISTORY: Tubal in the past. She had tubal in the past. Cyst removed from her wrist in the past. HOME MEDICATIONS: Lisinopril, hydrochlorothiazide, metoprolol. ALLERGIES: NKDA. LATEX, TAPE (RASH). FAMILY HISTORY: Negative in regards to this specific problem. SOCIAL HISTORY: Former smoker. No alcohol abuse. REVIEW OF SYSTEMS: Twelve systems reviewed. No chest pain or palpitations. As noted above, influenza. PHYSICAL EXAMINATION: GENERAL: No acute distress. HEENT: Sclera nonicteric. NECK: No JVD. CHEST: Equal excursion, nonlabored breathing. CVS: Regular rhythm. ABDOMEN: Soft, some mild tenderness right mid to upper abdomen. No peritoneal signs. EXTREMITIES: No edema. NEURO: Alert. PSYCH: Appropriate mood and affect. IMPRESSION: Acute exacerbation chronic cholecystitis, symptomatic cholelithiasis. However, differential includes gastroenteritis, viral syndrome, gastritis, ulcer disease or other etiology. Either way given the stones and the wall thickening I feel she is a candidate for cholecystectomy. She was explained the risks and benefits including but not limited to bleeding or infection, risk of trocar injury or hernia, risk of bowel, bladder or blood vessel injury, risk of bile leak, bile duct injury, retained stone or sludge possibly requiring further procedure either open or ERCP, general risk of anesthesia, deep venous thrombosis, pulmonary embolism, pneumonia, perioperative risk of aches, pains, bloating, constipation and/or loose stools possibly even chronic in nature. She understands and agrees with the plan. I am actually seeing her for Dr. Thiago Reis who is radiosonde operator for our group today. I will double check to see if he is freed up and wanted to proceed with the procedure. Otherwise, will add to follow my other outpatient cases.
[2023-10-06] MEDS ORDERED: BRIDION 200MG/2ML IV ONE (14:44)
[2023-10-06] MEDS ORDERED: PROVENTIL 2.5 MG/3 ML NEB IH ONE (15:25)
[2023-10-06] MEDS: PROVENTIL 2.5 MG/3 ML NEB IH ONE (15:26)
--- NOTE | 2023-10-06 15:31 | OP ---
SURGERY DATE/TIME: 10/06/2023 1412 PREOPERATIVE DIAGNOSIS: Acute exacerbation of chronic cholecystitis, symptomatic cholelithiaisis. POSTOPERATIVE DIAGNOSIS: Acute exacerbation of chronic cholecystitis, symptomatic cholelithiaisis. PROCEDURE: Laparoscopic cholecystectomy. SURGEON: Dr. Augustus Blair. ANESTHESIA: General. ESTIMATED BLOOD LOSS: Minimal. INDICATIONS: As noted above. Risks and benefits explained in detail but not limited to and consent obtained. DESCRIPTION OF PROCEDURE AND FINDINGS: The patient is taken to the operating room. General anesthesia induced. Abdomen prepped and draped in usual sterile fashion. After official time out and no disagreement with planned procedure, a transverse incision made in the supraumbilical area. Fascia grasped, pulled upward. Veress needle inserted and tested with saline. Pneumoperitoneum accomplished insufflating opening pressure of 0-15. An 11 mm bladeless port and camera were inserted without difficulty followed by 11 mm epigastric port and 5 mm right upper quadrant ports. The gallbladder is distended, thick walled and chronic inflammation. Dissected posterior, lateral to anterior fashion. It had a lateral artery coming across the cystic duct anteriorly with slight bit of reaction this took some time to free up but once this was freed up it was isolated, clipped x3 and divided. This allowed the cystic duct and infundibular junction to be carefully skeletonized until the critical view was obtained both anteriorly and posteriorly. Once this is accomplished, the cystic duct clipped x3 and divided in the usual fashion. Gallbladder slowly and carefully dissected free from its dense attachment to the liver bed staying directly on the gallbladder. It was quite vascular and required clipping additional oozing side branches off the cystic artery and vein directly on the gallbladder wall as necessary. The gallbladder is slowly and carefully dissected free. Just prior to releasing from final attachments to the anterior edge of the liver, one of the graspers tore a small pinhole spilling small amount of bile and sludge this is suctioned and irrigated as clear as possible. The gallbladder was continued to be dissected free directly on the gallbladder wall. Just prior to releasing from final attachments to the anterior edge of the liver, the liver bed re-inspected. Clips noted in place in the cystic duct and cystic artery stumps. No signs of any active bleeding or bile leakage. It was felt there is no benefit of drain placement. The gallbladder had been released and placed in a bag. As it was thick walled, it was necessary to enlarge the fascial defect at the epigastrium. Once it was enlarged, it allowed the gallbladder and bag to be pulled free and passed off. The fascial defect was closed with puncture closure device with #1 Vicryl. Copious amount of irrigation accomplished lateral to the liver irrigating clear. Liver bed re-inspected. Clips noted to be in place cystic duct and cystic artery stumps. There were no signs of any active bleeding or bile leakage. It was felt there was no benefit in drain placement. Pneumoperitoneum decompressed. Skin incision closed with 4-0 Vicryl, Steri-Strips and sterile dressing applied. The patient tolerated the procedure well. There were no immediate complications. Findings discussed with the family out in the waiting area.
[2023-10-06] MEDS ORDERED: Zofran 4 MG/2 ML VIAL IV PRN (16:41)
[2023-10-06] MEDS: MORPHINE SULFATE 4 MG INJ IV PRN (18:06)
[2023-10-06 19:09] LABS: Absolute Neutrophil Ct (ANC) 8.36 x10^3/uL (1.4-6.9); BASOPHIL % 0.2 % (0.0-0.4); Basophil (Absolute #) 0.02 x10^3/uL (0-0.4); Eosinophil (Absolute #) 0 x10^3/uL (0-0.5); Hematocrit 45.4 % (35-47); Hemoglobin 15.1 g/dL (12.0-16.0); IMMATURE GRAN # 0.05 x10^3u/L (0.00-0.03); IMMATURE GRAN % 0.5 % (0.00-0.4); Lymphocytes % 8.4 % (24.0-44.0); Mean Cell Volume 93.4 fL (78-100); Mean Corpuscular Hemoglobin 31.1 pg (26-32); Mean Corpuscular Hgb Concent. 33.3 g/dL (32-36); Mean Platelet Volume 9.6 fL (7.5-11.0); Monocyte (Absolute #) 0.29 x10^3/uL (0.0-1.3); Neutrophil % 87.9 % (36.0-66.0); Platelet Count 320 x10^3/uL (150-450); Red Blood Count 4.86 x10^6/uL (4.1-5.4); Red Cell Distribution Width 13.7 % (11.5-14.0); White Blood Count 9.5 x10^3/uL (4.0-10.5)
[2023-10-06 19:23] LABS: ANION GAP 13.5 MEQ/L (5-15); BILIRUBIN,TOTAL 0.5 mg/dL (0.2-1.3); Calcium 9.2 mg/dL (8.4-10.2); Creatinine 1 0.9 mg/dL (0.52-1.04); EST GLOMERULAR FILTRATION RATE 74.1 ML/MIN; Potassium 4.1 mmol/L (3.5-5.1); Total Protein 7.5 g/dL (6.3-8.2)
[2023-10-06 21:18] VITALS: RESP 16
[2023-10-06] MEDS: NORCO 5/325 MG PO PRN (22:05)
--- NOTE | 2023-10-07 05:10 | PCM.DS ---
Discharge Summary Date of Admission: 10/05/23 03:22 Date of Discharge: 10/07/23 Admitting Physician: MARLYN THAYER DO Consults: Consults on Case 10/06/23 07:57 Consult Surgery ROUTINE Primary Care Provider: NO FAMILY DOCTOR Allergies Allergies latex Allergy (Mild, Verified 03/16/23 21:27) Rash tape Allergy (Mild, Uncoded 03/16/23 21:27) Rash Hospital Summary - Hospital Course Hospital Course: Nayla Mayes is a 58 yo female with a pmhx of migraines, HTN, and GERD admitted 10/05/23 for RLL pneumonia, vomiting, and UTI (no growth to date on culture). IP treatment with Rocephin and azithromycin. Patient is at baseline RA. Patient also endorses chronic cough and her lisinopril has been held during hospital course which has helped. CT abdomen did show non-obstructing kidney stone, gallbladder sludge, and uncomplicated cholelithiasis. Lower bases of lungs clear on CT. No clinical indication of pneumonia. US of the abdomen showed gallbladder wall thickening and cholelithiasis. Uneventful lap cholecystecomy performed. Nausea/vomiting resolved. Patient able to tolerate a diet. Labs st able. Patient requesting discharge. Will have patient continue to hold lisinopril until follow up with PCP. Will send home on HCTZ as prescribed, advised follow up with PCP, keep BP log . Discharge Note New Diagnosis: cholelithiasis/pna New Medications: HCTZ, discontinue lisinopril Follow Up: pcp/surgery Latest Assessment & Plan (1) Gallstones -surgery consulted, -uneventful lapchole performed -n/v resolved -Pain controlled (1) RLL pneumonia Current Visit: Yes Status: Acute Assessment & Plan: RLL infiltrate seen on CXR, has cough. Due to nausea and vomiting, unable to take oral meds. Plan IV rocephin 1gm daily. Cultures sent. Plan to treat N/V and change to oral in AM, if possible. Albuterol updraft if needed. Although she is currently on room air, no wheezing 10/05: -RA -Continue rocephin/azith -Supplemental oxygen with goal spo2 > 92% -RT eval with Nebs/INH 10/06: -lung bases clear on CT -D/C abx -On RA -Cough resolved Code(s): J18.9 - PNEUMONIA, UNSPECIFIED ORGANISM (2) Essential (primary) hypertension Current Visit: Yes Status: Acute Assessment & Plan: BP is elevated, likely due to the fact she has not been able to keep anything down, including her oral home BP meds. IV hydralazine prn. Resume home meds. I would hold Lisinopril as this can also cause a non-productive cough, and she has this cough for 2-3 weeks already 10/05: -Will d/c lisinopril, add amlodipine Code(s): I10 - ESSENTIAL (PRIMARY) HYPERTENSION (3) Persistent cough for 3 weeks or longer Current Visit: Yes Status: Acute Assessment & Plan: Could be due to the PNA, and or the ACEI. I am holding Lisinopril for now to see if this am help. 10/05: -Cough improved with discontinuation of ACEI, will add amlodipine for BP Code(s): R05.3 - CHRONIC COUGH (4) Vomiting Current Visit: Yes Status: Acute Assessment & Plan: N/V - UA noted, + LE, bacteria. rocephin should take care of this as well. She has no symptom. CT abd also shows non-obstructing kidney stone, and gallbladder sludge/cholelithiasis. Again, no abdominal pain. Does have nusea and vomiting 10/05: -Nausea contnued, US ordered yesterday, completed today. -Surgery consult as pt has not been able to tolerate oral intake -Ucult with NGTD Code(s): R11.10 - VOMITING, UNSPECIFIED Code(s): J18.9 - PNEUMONIA, UNSPECIFIED ORGANISM I spent 35 minutes [id number] with the patient on the day of discharge performing discharge exam, discussing hospital stay and discharge instructions with patient and caregivers, preparation of discharge records, prescriptions & referral forms and addressing any questions/concerns the patient had as documented above.. Surgery consulted and uneventful lap cholecystecomy performed. - Vitals & Intake/Output Vital Signs: Vital Signs Temperature 98.2 F 10/06/23 23:33 Pulse Rate 76 10/06/23 23:33 Respiratory Rate 16 10/06/23 23:33 Blood Pressure 134/71 10/06/23 23:33 O2 Sat by Pulse Oximetry 91 L 10/06/23 23:33 Intake & Output: Intake & Output 03/16/24 03/17/24 03/18/24 03/19/24 11:59 11:59 11:59 11:59 Intake Total 280 623 Output Total 1 Balance -1 280 623 Weight 103.5 kg 103.5 kg - Lab Result Diagrams: 10/07/23 04:30 10/07/23 04:30 Lab Results-Last 24 Hrs: Lab Results-Last 24 Hours 10/06/23 10/06/23 10/06/23 Range/Units 04:20 19:00 19:00 WBC 9.5 (4.0-10.5) x10^3/uL RBC 4.86 (4.1-5.4) x10^6/uL Hgb 15.1 (12.0-16.0) g/dL Hct 45.4 (35-47) % MCV 93.4 (78-100) fL MCH 31.1 (26-32) pg MCHC 33.3 (32-36) g/dL RDW 13.7 (11.5-14.0) % Plt Count 320 (150-450) x10^3/uL MPV 9.6 (7.5-11.0) fL Gran % 87.9 H (36.0-66.0) % Immature Gran % (Auto) 0.5 H (0.00-0.4) % Nucleat RBC Rel Count 0.0 (0.00-0.1) % Eos # (Auto) 0 (0-0.5) x10^3/uL Immature Gran # (Auto) 0.05 H (0.00-0.03) x10^3u/L Absolute Lymphs (auto) 0.80 L (1.0-4.6) x10^3/uL Absolute Monos (auto) 0.29 (0.0-1.3) x10^3/uL Absolute Nucleated RBC 0.00 (0.00-0.01) x10^3u/L Lymphocytes % 8.4 L (24.0-44.0) % Monocytes % 3.0 (0.0-12.0) % Eosinophils % 0.0 (0.00-5.0) % Basophils % 0.2 (0.0-0.4) % Absolute Granulocytes 8.36 H (1.4-6.9) x10^3/uL Basophils # 0.02 (0-0.4) x10^3/uL Sodium 138 136 (135-145) mmol/L Potassium 3.6 4.1 (3.5-5.1) mmol/L Chloride 103 101 (98-107) mmol/L Carbon Dioxide 26 25 (22-30) mmol/L Anion Gap 12.4 13.5 (5-15) MEQ/L BUN 10 13 (7-17) mg/dL Creatinine 1.13 H 0.90 (0.52-1.04) mg/dL Estimated GFR 56.4 74.1 ML/MIN Glucose 96 135 H (74-106) mg/dL Calcium 9.2 9.2 (8.4-10.2) mg/dL Total Bilirubin 0.50 0.50 (0.2-1.3) mg/dL AST 26 37 H (14-36) U/L ALT 23 31 (0-35) U/L Alkaline Phosphatase 91 90 (38-126) U/L Serum Total Protein 7.4 7.5 (6.3-8.2) g/dL Albumin 4.1 4.0 (3.5-5.0) g/dL Micro Results-Entire Visit: Microbiology 10/05/23 00:55 Urine Culture - Final Clean Catch Midstream NO GROWTH - Radiology Exams Ordered Rad Exams-Entire Visit: Radiology Procedures Category Date Time Status ABDOMINAL-LIMITED [US] Routine Exams 10/06/23 07:50 Completed - Procedures and Test Procedures and Tests throughout Hospitalization: Therapy Orders & Screens 10/05/23 03:27 Respiratory Therapy Consult ONCE Comment: Reason For Exam: 10/05/23 03:55 Respiratory Therapy Assessment DAILY Comment: Diagnosis: Pneumonia 10/05/23 07:53 Oxygen Nasal Cannula 2 lpm Comment: Keep O2 > 92% Diagnosis: Pneumonia Discharge Exam General Appearance: no apparent distress Neurologic Exam: alert, oriented x 3, cooperative Eye Exam: PERRL Ears, Nose, Throat Exam: normal ENT inspection Neck Exam: normal inspection Respiratory Exam: normal breath sounds, lungs clear Cardiovascular Exam: regular rate/rhythm, normal heart sounds Gastrointestinal/Abdomen Exam: soft, normal bowel sounds Pelvic Exam: deferred Rectal Exam: deferred Back Exam: normal inspection Extremity Exam: normal inspection Skin Exam: other (4 puncture sites with gauze/tegaderm, CDI) Final Diagnosis/Problem List - Final Discharge Diagnosis/Problem (1) Gallstones without obstruction of gallbladder Current Visit: Yes Status: Resolved Code(s): K80.20 - CALCULUS OF GALLBLADDER W/O CHOLECYSTITIS W/O OBSTRUCTION (2) RLL pneumonia Current Visit: Yes Status: Ruled-out Code(s): J18.9 - PNEUMONIA, UNSPECIFIED ORGANISM (3) Essential (primary) hypertension Current Visit: Yes Status: Chronic Code(s): I10 - ESSENTIAL (PRIMARY) HYPERTENSION (4) Persistent cough for 3 weeks or longer Current Visit: Yes Status: Chronic Code(s): R05.3 - CHRONIC COUGH (5) Vomiting Current Visit: Yes Status: Resolved Code(s): R11.10 - VOMITING, UNSPECIFIED - Discharge Disposition: Home, Self-Care Condition: Good Prescriptions: New Hydrocodone/Acetaminophen [Hydrocodone-Acetamin 5-325 mg] 1 tab PO Q4HPRN PRN #16 tablet MDD 6 PRN Reason: Pain Continue Metoprolol Succinate 100 mg [Toprol Xl 100 MG] 100 mg PO DAILY hydroCHLOROthiazide [Hydrochlorothiazide] 12.5 mg PO DAILY 30 Days #30 cap Discontinued Lisinopril 10 mg [Zestril 10 MG] 40 mg PO DAILY Additional Instructions: 1. No lifting for two (2) weeks. Nothing heavier than 1 gallon of milk. We do not want you straining, thus possible opening the incision. 2. If pain develops in shoulder, apply a heating pad on low setting. The pain is caused from the air they inflate the belly with. The air traps under the diaphragm and refers pain to the shoulder. The pain medication will probably not help, just the heating pad or walking may relieve the pain. This pain should go away in 3-4 days. 3. You may shower after 24 hours. You may take a tub bath in two weeks. (Leave the steri strips alone to the puncture sites) 4. Some nausea is normal. If you experience nausea or vomiting, limit your food intake. If the nausea and vomiting last longer than 24 hours, contact the doctor. 5. Take the pain medication as prescribed. Some pain and swelling is normal. Our goal is to keep your pain at a tolerable level. If the pain is not tolerable, contact the doctor. Usually you can transition to Tylenol and Ibuprofen after a couple days. 6. Remove band aid/dressing in 24 hours. You may need to apply another bandaide or dressing if the site is still oozing. This is normal. If you are saturating the dressing every hour, contact the doctor. 7. Leave steri strips in place for 1 week or until you return to the office. 8. If drainage of pus or foul odor or fever develops contact your doctor. 9. It is important to cough and deep breath after your surgery several times a day. This helps prevent lung infections. When coughing, support the surgical area with a pillow. Follow up with: DOCTOR,NO FAMILY [Primary Care Provider] - MARY GALARZA [COURTESY STAFF] -
[2023-10-07 05:11] VITALS: TEMP 97.1
[2023-10-07 05:52] LABS: Hematocrit 44.8 % (35-47); Hemoglobin 14.6 g/dL (12.0-16.0); Mean Cell Volume 93.1 fL (78-100); Mean Corpuscular Hemoglobin 30.4 pg (26-32); Mean Corpuscular Hgb Concent. 32.6 g/dL (32-36); Mean Platelet Volume 10.2 fL (7.5-11.0); Platelet Count 369 x10^3/uL (150-450); Red Blood Count 4.81 x10^6/uL (4.1-5.4); Red Cell Distribution Width 13.6 % (11.5-14.0); White Blood Count 8.1 x10^3/uL (4.0-10.5)
[2023-10-07 05:58] LABS: ALBUMIN 3.9 g/dL (3.5-5.0); ANION GAP 12.7 MEQ/L (5-15); BILIRUBIN,TOTAL 0.4 mg/dL (0.2-1.3); Calcium 9.2 mg/dL (8.4-10.2); Creatinine 1 0.91 mg/dL (0.52-1.04); EST GLOMERULAR FILTRATION RATE 73.1 ML/MIN; Total Protein 7.4 g/dL (6.3-8.2)
[2023-10-07 07:15] VITALS: BP 164/81
[2023-10-07 07:24] VITALS: PULSE 70; O2SAT 96
[2023-10-07] MEDS: ENOXAPARIN SODIUM SQ SCH (09:00)
== END 2023-10-07 11:26 | disposition home or self-care (01) ==
LOC: ED 23:09 → MED SURG 10-05 03:22
PROVIDERS: ADMIT Internal Medicine; ATTEND Internal Medicine
DX: K80.20 Calculus of gallbladder without cholecystitis without obstruction (principal); I10 Essential (primary) hypertension; N39.0 Urinary tract infection, site not specified; J18.9 Pneumonia, unspecified organism; R05.3 Chronic cough; R11.10 Vomiting, unspecified; Z79.899 Other long term (current) drug therapy; Z20.828 Contact with and (suspected) exposure to other viral communicable diseases
CPT/HCPCS: 0241U; 36000; 36415; 47562; 70450; 71046; 74176; 76705; 80053; 81001; 82150; 83036; 83605; 83690; 83880; 84145; 84439; 84443; 84484; 84703; 85025; 85027; 85652; 86308; 87086; 93005; 94640; 94760; 94762; 96374; 96375; 96376; 99285; Q3014; J0330; J0360; J0456; J0694; J0696; J1100; J1650; J1885; J2250; J2270; J2371; J2405; J2704; J3010; J7609; A9270-GY

== ENCOUNTER 2023-10-18 06:02 | Observation (INO) | payer OTHER ==
--- NOTE | 2023-10-18 06:47 | ERPHSYRPT ---
- History of Present Illness Source: patient Patient Subjective Stated Complaint: pt's states that pt woke up shaking and stated she wasnt feeling right. Triage Nursing Assessment: pt alert and oriented, answers questions slowly, accurately. pt back to room per wheelhcair and transfers to stretcher with assist of 1. pt with extremities shaking, worse with movement. Timing/Duration: today, hour(s) (last known normal 01:00) Severity: mild Associated Symptoms: weakness, No nausea, No vomiting, No abdominal pain, No shortness of breath, No diaphoresis, No chest pain, No fever, No headaches, No syncope Hx Tetanus, Diphtheria Vaccination/Date Given: Yes Hx Influenza Vaccination/Date Given: No Hx Pneumococcal Vaccination/Date Given: No Immunizations Up to Date: Yes <SARAH JANE - Last Filed: 10/18/23 06:56> <JAZMYNE ESQUIVEL - Last Filed: 10/18/23 08:55> - History of Present Illness Time Seen by Provider: 10/18/23 06:35 Physician History: 58yo f presents to ED by private vehicle for tremulousness and "not feeling right." Pt reportedly had several alcoholic beverages and shots last night at a [employer], went to bed at 01:00 at her baseline mental status, non-tremulous, feeling at her baseline. Pt states she woke up at 03:00 this AM, was shaking diffusely and not feeling right, decided to wake her and have him bring her to the ED. Pt states she feels weak all over, reports some tingling in her UEs b/l. Pt is AxO x 3 on exam, takes pt prolonged time to respond to questions. Tremulous in all extremities at rest and w/ action during exam. Pt currently denies cp, soa, n/v, SMITH. Pt recently had cholecystectomy on 10/07/23, no complications reported since. (SARAH JANE) Allergies/Adverse Reactions: latex Allergy (Mild, Verified 10/18/23 06:52) Rash tape Allergy (Mild, Uncoded 10/18/23 06:52) Rash Home Medications: Metoprolol Succinate 100 mg [Toprol Xl 100 MG] 100 mg PO DAILY 10/04/23 [History] Travel Risk - International Travel Have you traveled outside of the country in past 3 weeks: No - Emerging Infectious Disease Are you exhibiting symptoms associated with any current EIDs: No <SARAH JANE - Last Filed: 10/18/23 06:56> - Review of Systems Constitutional: Weakness, No Fever, No Chills Eyes: No Symptoms Respiratory: No Symptoms Cardiac: No Symptoms Abdominal/Gastrointestinal: No Symptoms Neurological: Tremors (diffusely ), No Headache, No Paralysis, No Sensory Changes Psychological: Alcohol Abuse, Anxiety, No Drug Abuse <SARAH JANE - Last Filed: 10/18/23 06:56> - Past Medical History Pertinent Past Medical History: Yes Neurological History: Migraines ENT History: No Pertinent History Cardiac History: Hypertension Respiratory History: No Pertinent History Endocrine Medical History: No Pertinent History Musculoskeletal History: No Pertinent History GI Medical History: GERD History: No Pertinent History Psycho-Social History: No Pertinent History Female Reproductive Disorders: No Pertinent History Other Medical History: recent pne diagnosis - Past Surgical History Past Surgical History: Yes Neuro Surgical History: No Pertinent History Cardiac: No Pertinent History Respiratory: No Pertinent History Gastrointestinal: No Pertinent History Genitourinary: No Pertinent History Musculoskeletal: Orthopedic Surgery Female Surgical History: Tubal Ligation, Other Other Surgical History: CYST REMOVED FROM LEFT WRIST, colonoscopy. lap agnieszka on 10/06/23 Significant Family History: no pertinent family hx - Social History Smoking Status: Never smoker Exposure to second hand smoke: No Drug Use: none Patient Lives Alone: No <SARAH JANE - Last Filed: 10/18/23 06:56> - Physical Exam General Appearance: no apparent distress, alert, anxiety Eye Exam: PERRL/EOMI, eyes nml inspection, No photophobia Neck Exam: normal inspection, non-tender Respiratory Exam: normal breath sounds, lungs clear, airway intact, No chest tenderness, No respiratory distress Cardiovascular Exam: normal heart sounds, normal peripheral pulses, tachycardia Gastrointestinal/Abdomen Exam: soft, normal bowel sounds, No tenderness, No distention Extremity Exam: normal inspection, No deformities, No parasthesia Neurologic Exam: alert, oriented x 3, cooperative, 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, normal mood/affect, sensation nml, motor weakness (diffuse in UE and LE b/l strength 2/5), other (no pronator drift; tremors present in UE and LE b/l), No sensory deficit, No disoriented, No confusion, No intoxicated appearance, No facial droop SpO2 Interpretation: normal SpO2: 97 O2 Delivery: Room Air <LUCINDASARAH SHYANN - Last Filed: 10/18/23 06:56> - Nursing Vital Signs Nursing Vital Signs: Initial Vital Signs Temperature 97.9 F 10/18/23 06:26 Pulse Rate 127 H 10/18/23 06:26 Respiratory Rate 18 10/18/23 06:26 Blood Pressure 163/93 10/18/23 06:26 O2 Sat by Pulse Oximetry 97 10/18/23 06:26 Pain Scale Pain Intensity 0 - Course EKG Interpreted by Me: RATE (129), Sinus Tach, Non-specific ST Changes (not suggestive of ischemia), Other (qtcb [id number]) <LUCINDASARAH - Last Filed: 10/18/23 06:56> Ordered Tests: Active Orders 24 hr Category Date Time Status HEAD WITHOUT CONTRAST [CT] Stat Exams 10/18/23 06:33 Completed CBC W DIFF Stat Lab 10/18/23 06:53 Completed CMP Stat Lab 10/18/23 06:53 Completed CULTURE,URINE Stat Lab 10/18/23 07:18 Received LIPASE Stat Lab 10/18/23 06:53 Completed Lactic Acid Stat Lab 10/18/23 06:34 Completed TROPONIN Q4H Lab 10/18/23 06:53 Completed TROPONIN Q4H Lab 10/18/23 10:45 Ordered TROPONIN Q4H Lab 10/18/23 14:45 Ordered TSH, 3RD Generation Stat Lab 10/18/23 06:53 Completed UA W/RFX UR CULTURE Stat Lab 10/18/23 07:18 Completed Urine Triage Profile Stat Lab 10/18/23 07:18 Completed Medication Summary Generic Name Dose Route Start Last Admin Trade Name Freq PRN Reason Stop Dose Admin Sodium Chloride 1,000 mls @ 999 mls/hr 10/18/23 08:06 10/18/23 08:08 Sodium Chloride 0.9% 1000 Ml IV 10/18/23 09:06 999 mls/hr .Q1H1M STA Administration Ceftriaxone Sodium 1 gm in 100 mls @ 200 mls/hr 10/18/23 08:41 10/18/23 08:53 Rocephin 1 Gm / 100 Ml Nacl IV 10/18/23 09:10 200 mls/hr STAT ONE 200 mls/hr Administration Discontinued Medications Generic Name Dose Route Start Last Admin Trade Name Magdalena PRN Reason Stop Dose Admin Sodium Chloride 1,000 mls @ 999 mls/hr 10/18/23 06:34 10/18/23 08:50 Sodium Chloride 0.9% 1000 Ml IV 10/18/23 07:34 Infused .Q1H1M STA Infusion Sodium Chloride Confirm 10/18/23 06:55 Sodium Chloride 0.9% 1000 Ml Administered 10/18/23 06:56 Dose 1,000 mls @ ud .ROUTE .STK-MED ONE Sodium Chloride Confirm 10/18/23 08:05 Sodium Chloride 0.9% 1000 Ml Administered 10/18/23 08:06 Dose 1,000 mls @ ud .ROUTE .STK-MED ONE Ceftriaxone Sodium Confirm 10/18/23 08:51 Rocephin 1 Gm / 100 Ml Nacl Administered 10/18/23 08:52 Dose 1 gm in 100 mls @ ud IV .STK-MED ONE Lab/Rad Data: Laboratory Result Diagrams 10/18/23 06:53 10/18/23 06:53 Laboratory Results 10/18/23 10/18/23 10/18/23 Range/Units 07:18 07:18 06:53 WBC (4.0-10.5) x10^3/uL RBC (4.1-5.4) x10^6/uL Hgb (12.0-16.0) g/dL Hct (35-47) % MCV (78-100) fL MCH (26-32) pg MCHC (32-36) g/dL RDW (11.5-14.0) % Plt Count (150-450) x10^3/uL MPV (7.5-11.0) fL Gran % (36.0-66.0) % Immature Gran % (Auto) (0.00-0.4) % Nucleat RBC Rel Count (0.00-0.1) % Eos # (Auto) (0-0.5) x10^3/uL Immature Gran # (Auto) (0.00-0.03) x10^3u/L Absolute Lymphs (auto) (1.0-4.6) x10^3/uL Absolute Monos (auto) (0.0-1.3) x10^3/uL Absolute Nucleated RBC (0.00-0.01) x10^3u/L Lymphocytes % (24.0-44.0) % Monocytes % (0.0-12.0) % Eosinophils % (0.00-5.0) % Basophils % (0.0-0.4) % Absolute Granulocytes (1.4-6.9) x10^3/uL Basophils # (0-0.4) x10^3/uL Sodium (135-145) mmol/L Potassium (3.5-5.1) mmol/L Chloride (98-107) mmol/L Carbon Dioxide (22-30) mmol/L Anion Gap (5-15) MEQ/L BUN (7-17) mg/dL Creatinine (0.52-1.04) mg/dL Estimated GFR ML/MIN Glucose (74-106) mg/dL Lactic Acid (0.4-2.0) Calcium (8.4-10.2) mg/dL Total Bilirubin (0.2-1.3) mg/dL AST (14-36) U/L ALT (0-35) U/L Alkaline Phosphatase (38-126) U/L Troponin I < 0.012 (0.000-0.034) ng/mL Serum Total Protein (6.3-8.2) g/dL Albumin (3.5-5.0) g/dL Lipase (23-300) U/L TSH 3rd Generation (0.47-4.68) mIU/L Urine Color Yellow (Yellow) Urine Appearance Cloudy A (Clear) Urine pH 5.0 (4.6-8.0) Ur Specific [place] 1.025 (1.005-1.030) Urine Protein Trace A (Negative) Urine Glucose (UA) Negative (Negative) mg/dL Urine Ketones Negative (Negative) Urine Blood Negative (Negative) Urine Nitrite Negative (Negative) Urine Bilirubin Negative (Negative) Urine Urobilinogen 0.2 (0.2) mg/dL Ur Leukocyte Esterase Moderate A (Negative) U Hyaline Cast (Auto) NONE SEEN (0-2) /LPF Urine Microscopic RBC 0-2 (0-5) /HPF Urine Microscopic WBC 21-50 A (0-5) /HPF Ur Epithelial Cells Moderate A (None Seen) /HPF Urine Bacteria Moderate A (None Seen) /HPF Urine Culture Reflexed YES (NO) Urine Opiates Level NEGATIVE (NEGATIVE) Ur Methadone NEGATIVE (NEGATIVE) Urine Barbiturates NEGATIVE (NEGATIVE) Ur Phencyclidine (PCP) NEGATIVE (NEGATIVE) Urine Amphetamine NEGATIVE (NEGATIVE) U Benzodiazepine Level NEGATIVE (NEGATIVE) Urine Cocaine NEGATIVE (NEGATIVE) Urine Marijuana (THC) POSITIVE A (NEGATIVE) 10/18/23 10/18/23 10/18/23 Range/Units 06:53 06:53 06:34 WBC 7.5 (4.0-10.5) x10^3/uL RBC 4.27 (4.1-5.4) x10^6/uL Hgb 13.1 (12.0-16.0) g/dL Hct 40.2 (35-47) % MCV 94.1 (78-100) fL MCH 30.7 (26-32) pg MCHC 32.6 (32-36) g/dL RDW 13.3 (11.5-14.0) % Plt Count 396 (150-450) x10^3/uL MPV 10.0 (7.5-11.0) fL Gran % 58.8 (36.0-66.0) % Immature Gran % (Auto) 0.5 H (0.00-0.4) % Nucleat RBC Rel Count 0.0 (0.00-0.1) % Eos # (Auto) 0.08 (0-0.5) x10^3/uL Immature Gran # (Auto) 0.04 H (0.00-0.03) x10^3u/L Absolute Lymphs (auto) 2.14 (1.0-4.6) x10^3/uL Absolute Monos (auto) 0.79 (0.0-1.3) x10^3/uL Absolute Nucleated RBC 0.00 (0.00-0.01) x10^3u/L Lymphocytes % 28.4 (24.0-44.0) % Monocytes % 10.5 (0.0-12.0) % Eosinophils % 1.1 (0.00-5.0) % Basophils % 0.7 (0.0-0.4) % Absolute Granulocytes 4.43 (1.4-6.9) x10^3/uL Basophils # 0.05 (0-0.4) x10^3/uL Sodium 141 (135-145) mmol/L Potassium 4.1 (3.5-5.1) mmol/L Chloride 107 (98-107) mmol/L Carbon Dioxide 24 (22-30) mmol/L Anion Gap 14.2 (5-15) MEQ/L BUN 15 (7-17) mg/dL Creatinine 0.98 (0.52-1.04) mg/dL Estimated GFR 66.9 ML/MIN Glucose 134 H (74-106) mg/dL Lactic Acid 1.0 (0.4-2.0) Calcium 9.0 (8.4-10.2) mg/dL Total Bilirubin 0.40 (0.2-1.3) mg/dL AST 21 (14-36) U/L ALT 37 H (0-35) U/L Alkaline Phosphatase 105 (38-126) U/L Troponin I (0.000-0.034) ng/mL Serum Total Protein 7.4 (6.3-8.2) g/dL Albumin 3.9 (3.5-5.0) g/dL Lipase 143 (23-300) U/L TSH 3rd Generation 0.555 (0.47-4.68) mIU/L Urine Color (Yellow) Urine Appearance (Clear) Urine pH (4.6-8.0) Ur Specific [place] (1.005-1.030) Urine Protein (Negative) Urine Glucose (UA) (Negative) mg/dL Urine Ketones (Negative) Urine Blood (Negative) Urine Nitrite (Negative) Urine Bilirubin (Negative) Urine Urobilinogen (0.2) mg/dL Ur Leukocyte Esterase (Negative) U Hyaline Cast (Auto) (0-2) /LPF Urine Microscopic RBC (0-5) /HPF Urine Microscopic WBC (0-5) /HPF Ur Epithelial Cells (None Seen) /HPF Urine Bacteria (None Seen) /HPF Urine Culture Reflexed (NO) Urine Opiates Level (NEGATIVE) Ur Methadone (NEGATIVE) Urine Barbiturates (NEGATIVE) Ur Phencyclidine (PCP) (NEGATIVE) Urine Amphetamine (NEGATIVE) U Benzodiazepine Level (NEGATIVE) Urine Cocaine (NEGATIVE) Urine Marijuana (THC) (NEGATIVE) - Progress Progress: re-examined <SARAH JANE - Last Filed: 10/18/23 06:56> - Progress Progress: improved <JAZMYNE ESQUIVEL - Last Filed: 10/18/23 08:55> - Progress Progress Note: 10/18/23 06:54 ekg showed sinus tach ordered 1L NS bolus CT head pending lab w/u pending I discussed pt case w/ Dr Esquivel who is taking over care for pt at 07:00 (SARAH JANE) 10/18/23 08:54 Patient is less tremulous on reexamination at 8:54 AMWe did discuss the case with the hospitalist and she will be admitted for fluids and for antibiotics and for observation. (JAZMYNE ESQUIVEL) Medical Desision Making - Risk of complications Minimal Risk: Minimal risk of morbidity <SARAH JANE - Last Filed: 10/18/23 06:56> - Independent Historian Additional History obtained from: Spouse - External Record(s) Reviewed Records reviewed as a part of evaluation & management: Inpatient - Discussion of managment Care discussed with:: hospitalist Reviewed:: Test results Agreed on:: Treatment plan, decision to admit Will see patient: in hospital - Diagnostic Testing Diagnostic test were ordered, analyzed, and reviewed by me: Yes Radiological Interpretation: Reviewed by me - Risk of complications Low Risk: Low risk of morbidity from additional dx testing or treatment <JAZMYNE ESQUIVEL - Last Filed: 10/18/23 08:55> - Departure Departure Disposition: Home Critical Care Time: No <SARAH JANE - Last Filed: 10/18/23 06:56> - Departure Departure Disposition: Observation <JAZMYNE ESQUIVEL - Last Filed: 10/18/23 08:55> - Departure Clinical Impression: Alcohol abuse, Tremulousness, UTI (urinary tract infection) Condition: Stable Referrals: DOCTOR,NO FAMILY [Primary Care Provider] - Follow up/PCP as directed
[2023-10-18] MEDS ORDERED: Sodium Chloride 0.9% 1000 ML 1,000 ML ONE ×2 (06:55→08:05)
[2023-10-18] MEDS: Sodium Chloride 0.9% 1000 ML 1,000 ML IV STA ×2 (06:56→08:08)
[2023-10-18 06:58] LABS: Absolute Neutrophil Ct (ANC) 4.43 x10^3/uL (1.4-6.9); BASOPHIL % 0.7 % (0.0-0.4); Basophil (Absolute #) 0.05 x10^3/uL (0-0.4); Eosinophil % 1.1 % (0.00-5.0); Eosinophil (Absolute #) 0.08 x10^3/uL (0-0.5); Hematocrit 40.2 % (35-47); Hemoglobin 13.1 g/dL (12.0-16.0); IMMATURE GRAN # 0.04 x10^3u/L (0.00-0.03); IMMATURE GRAN % 0.5 % (0.00-0.4); Lymphocyte (Absolute #) 2.14 x10^3/uL (1.0-4.6); Lymphocytes % 28.4 % (24.0-44.0); Mean Cell Volume 94.1 fL (78-100); Mean Corpuscular Hemoglobin 30.7 pg (26-32); Mean Corpuscular Hgb Concent. 32.6 g/dL (32-36); Monocyte (Absolute #) 0.79 x10^3/uL (0.0-1.3); Monocytes % 10.5 % (0.0-12.0); Neutrophil % 58.8 % (36.0-66.0); Platelet Count 396 x10^3/uL (150-450); Red Blood Count 4.27 x10^6/uL (4.1-5.4); Red Cell Distribution Width 13.3 % (11.5-14.0); White Blood Count 7.5 x10^3/uL (4.0-10.5)
--- NOTE | 2023-10-18 07:20 | XRAY ---
CLINICAL HISTORY: word finding difficulties COMPARISON: 10/04/2023. TECHNIQUE: Multiplanar CT brain performed without intravenous contrast stroke protocol. CTDI 53.92, DLP 1016.25. One of the following dose reduction techniques was utilized for this exam: Automated exposure control, adjustment of the mA and/or kV according to patient size, and use of iterative reconstruction. FINDINGS: A omid ventricular small focus of hypo density is noted adjacent to the right frontal horn likely chronic lacunar infarct. A few small foci of chronic ischemic changes are seen scattered at both cerebral hemispheres. No intra-axial or extra-axial hematoma was noted. No established major territorial infarct was noted. A tiny milimetric fat density focus is noted along the tentorium mostly a small lipoma. [place]-white matter differentiation is maintained. No midline shifts or deformity. Normal size and configuration of the cerebral ventricles. Normal CT appearance of the posterior fossa structures namely the cerebellar hemispheres, brainstem, and cerebellar peduncles. The osseous structures in the skull base are unremarkable. No definite calvarium fractures. Small mucous retention cyst in both maxillary sinuses. Hyperpneumatized petrous apex bilaterally. IMPRESSION: 1. Right periventricular hypodense focus likely chronic lacunar infarction. It has been stable since the last study. 2. Few small chronic ischemic foci. 3. No intracranial hematoma, established major territorial infarct, or mass effect was noted. 4. Further evaluation by DWI/ADC MRI study is recommended if clinically indicated. [facility] ER was called at [phone] at 7:13 AM EST, 10/18/2023 but the call was not responded to. A voicemail was left. Electronically Signed by: Mariya Higginbotham MD. (10/18/2023 07:15:54 EDT)
[2023-10-18 07:44] LABS: Appearance Cloudy (Clear); Bacteria Moderate /HPF (None Seen); Bilirubin Negative (Negative); Blood Negative (Negative); Epithelial Cells Moderate /HPF (None Seen); Glucose, Urine Negative (Negative); Hyaline Casts NONE SEEN /LPF (0-2); Ketones Negative (Negative); Leukocyte Esterase Moderate (Negative); Nitrite Negative (Negative); Protein,Urine Dip Trace (Negative); RBC 0-2 /HPF (0-5); Specific Gravity 1.025 (1.005-1.030); Urobilinogen 0.2 mg/dL (0.2); WBC 21-50 /HPF (0-5)
[2023-10-18 07:48] LABS: ALBUMIN 3.9 g/dL (3.5-5.0); ANION GAP 14.2 MEQ/L (5-15); BILIRUBIN,TOTAL 0.4 mg/dL (0.2-1.3); Creatinine 1 0.98 mg/dL (0.52-1.04); EST GLOMERULAR FILTRATION RATE 66.9 ML/MIN; Potassium 4.1 mmol/L (3.5-5.1); TSH, 3RD Generation 0.555 mIU/L (0.47-4.68); Total Protein 7.4 g/dL (6.3-8.2)
[2023-10-18 07:49] LABS: ADD URINE CULTURE? YES (NO)
[2023-10-18 07:50] LABS: Amphetamine,Urine NEGATIVE (NEGATIVE); Barbiturate,Urine NEGATIVE (NEGATIVE); Benzodiazepine,Urine NEGATIVE (NEGATIVE); Cocaine,Urine NEGATIVE (NEGATIVE); Methadone,Urine NEGATIVE (NEGATIVE); Opiate,Urine NEGATIVE (NEGATIVE); PCP,Urine NEGATIVE (NEGATIVE); THC,Urine POSITIVE (NEGATIVE)
[2023-10-18] MEDS ORDERED: ROCEPHIN 1 GM / 100 ML NaCl 1 GM/100 ML IVPB IV ONE (08:51)
[2023-10-18] MEDS: ROCEPHIN 1 GM / 100 ML NaCl 1 GM/100 ML IVPB IV ONE (08:53)
--- NOTE | 2023-10-18 11:05 | PCM.HP ---
History of Present Illness - Chief Complaint Chief Complaint: Urinary tract infection Date: 10/18/23 History of Present Illness: is a 58 year old female with PMHX of GERD, migraines, HTN and recent lap choley surgery 1 week ago 10/07/23. She presented to ED by private vehicle for tremulousness and "not feeling right." Pt reportedly had 2 glasses of wine and 2 shots last night at a [employer] party. She went to bed at 01:00 at her baseline mental status, non-tremulous. Pt states she woke up at 03:00 this AM, was shaking diffusely and not feeling right with dry mouth, rapid HR, and tingling of BLUE. She decided to wake her and have him bring her to the ED. In ER pt stated she felt weak all over, some continued tingling in her BLUEs. On admission she has some tremors with walking only. Neuro exam is otherwise unremarkable. She does have a UTI and treated in ER with ceftriaxone will continue. She received two 1 L boluses if NS in ER for dehydration. She reports she is feeling better since admission and IVF. Will continue NS @ 75ml/hr. She denies CP, SOB, abd. pain, N/V. She reports she has had some diarrhea but correlates this with recent gallbladder surgery. - Review of Systems Constitutional: Fatigue, Weakness, No Fever, No Chills Eyes: No Symptoms Ears, Nose, & Throat: No Symptoms Respiratory: No Cough, No Short Of Breath Cardiac: No Chest Pain, No Edema, No Syncope Abdominal/Gastrointestinal: Diarrhea, No Abdominal Pain, No Nausea, No Vomiting Genitourinary Symptoms: No Dysuria Musculoskeletal: No Back Pain, No Neck Pain Skin: No Rash Neurological: Gait Changes, Tremors, No Dizziness, No Focal Weakness, No Sensory Changes Psychological: No Symptoms Endocrine: No Symptoms Hematologic/Lymphatic: No Symptoms Immunological/Allergic: No Symptoms Medications & Allergies Home Medications: Home Medication List Metoprolol Succinate 100 mg [Toprol Xl 100 MG] 100 mg PO DAILY 10/04/23 [History Confirmed 10/18/23] hydroCHLOROthiazide [Hydrochlorothiazide] 12.5 mg PO DAILY 30 Days #30 cap 10/07/23 [Rx Confirmed 10/18/23] Amlodipine Besylate 5 mg PO DAILY 10/18/23 [History Confirmed 10/18/23] Duloxetine HCl 30 mg [Cymbalta 30 MG Capsule] 30 mg PO DAILY 10/18/23 [History Confirmed 10/18/23] Allergies/Adverse Reactions: Allergies Allergy/AdvReac Type Severity Reaction Status Date / Time latex Allergy Mild Rash Verified 10/18/23 06:52 tape Allergy Mild Rash Uncoded 10/18/23 06:52 - Past Medical History Past Medical History: Yes Neurological History: Migraines ENT History: No Pertinent History Cardiac History: Hypertension Respiratory History: No Pertinent History Endocrine Medical History: No Pertinent History Musculoskelatal History: No Pertinent History GI Medical History: GERD, Gallbladder Disease History: No Pertinent History Pyscho-Social History: No Pertinent History Reproductive Disorders: No Pertinent History Comment: recent pne diagnosis - Female History Are you now?: No - Past Surgical History Past Surgical History: Yes Neuro Surgical History: No Pertinent History Cardiac History: No Pertinent History Respiratory Surgery: No Pertinent History GI Surgical History: Cholecystectomy Genitourinary Surgical Hx: No Pertinent History Musculskeletal Surgical Hx: Orthopedic Surgery Female Surgical History: Tubal Ligation, Other Other Surgical History: CYST REMOVED FROM LEFT WRIST, colonoscopy. lap agnieszka on 10/06/23 Significant Family History: no pertinent family hx - Social History Smoking Status: Former smoker Exposure to second hand smoke: No Alcohol: Occasionally Drug Use: none - Social Determinants of Health Will the patient participate in the screening: Yes Do you worry about a steady place to live?: No Do you have any problems with any of the following?: No known problems In the past 12 months,have you had to go without utilities?: No Have you or anyone in your house had to go without enough: No Transportation Issues: No Has anyone in your support network made you feel unsafe?: No Does the patient want assistance with any of the above?: No - Physical Exam Vital Signs: Vital Signs - 24 hr Temp Pulse Resp BP BP Pulse Ox 10/18/23 09:44 97.5 F 102 H 17 140/69 95 10/18/23 09:01 161/96 95 10/18/23 08:30 18 170/87 94 L 10/18/23 08:00 158/86 96 10/18/23 07:30 18 153/82 95 10/18/23 07:00 158/87 95 10/18/23 06:57 97 10/18/23 06:26 97.9 F 127 H 18 163/93 97 General Appearance: no apparent distress, alert Neurologic Exam: alert, oriented x 3, cooperative, normal mood/affect, nml cerebellar function, nml station & gait, sensation nml, abnormal gait (with tremors walking to the bathroom- witnessed), No motor deficits Eye Exam: PERRL/EOMI, eyes nml inspection Ears, Nose, Throat Exam: normal ENT inspection, TMs normal, pharynx normal, moist mucous membranes Neck Exam: normal inspection, non-tender, supple, full range of motion Respiratory Exam: normal breath sounds, lungs clear, No respiratory distress Cardiovascular Exam: regular rate/rhythm, normal heart sounds, normal peripheral pulses Gastrointestinal/Abdomen Exam: soft, normal bowel sounds, No tenderness, No mass Back Exam: normal inspection, normal range of motion, No CVA tenderness, No vertebral tenderness Extremity Exam: normal inspection, normal range of motion, pelvis stable Skin Exam: normal color, warm, dry, No rash Lymphatic Exam: No adenopathy Results - Labs Lab/Micro Results: Lab Results-Last 24 Hours 10/18/23 10/18/23 10/18/23 Range/Units 06:34 06:53 06:53 WBC 7.5 (4.0-10.5) x10^3/uL RBC 4.27 (4.1-5.4) x10^6/uL Hgb 13.1 (12.0-16.0) g/dL Hct 40.2 (35-47) % MCV 94.1 (78-100) fL MCH 30.7 (26-32) pg MCHC 32.6 (32-36) g/dL RDW 13.3 (11.5-14.0) % Plt Count 396 (150-450) x10^3/uL MPV 10.0 (7.5-11.0) fL Gran % 58.8 (36.0-66.0) % Immature Gran % (Auto) 0.5 H (0.00-0.4) % Nucleat RBC Rel Count 0.0 (0.00-0.1) % Eos # (Auto) 0.08 (0-0.5) x10^3/uL Immature Gran # (Auto) 0.04 H (0.00-0.03) x10^3u/L Absolute Lymphs (auto) 2.14 (1.0-4.6) x10^3/uL Absolute Monos (auto) 0.79 (0.0-1.3) x10^3/uL Absolute Nucleated RBC 0.00 (0.00-0.01) x10^3u/L Lymphocytes % 28.4 (24.0-44.0) % Monocytes % 10.5 (0.0-12.0) % Eosinophils % 1.1 (0.00-5.0) % Basophils % 0.7 (0.0-0.4) % Absolute Granulocytes 4.43 (1.4-6.9) x10^3/uL Basophils # 0.05 (0-0.4) x10^3/uL Sodium 141 (135-145) mmol/L Potassium 4.1 (3.5-5.1) mmol/L Chloride 107 (98-107) mmol/L Carbon Dioxide 24 (22-30) mmol/L Anion Gap 14.2 (5-15) MEQ/L BUN 15 (7-17) mg/dL Creatinine 0.98 (0.52-1.04) mg/dL Estimated GFR 66.9 ML/MIN Glucose 134 H (74-106) mg/dL Lactic Acid 1.0 (0.4-2.0) Calcium 9.0 (8.4-10.2) mg/dL Total Bilirubin 0.40 (0.2-1.3) mg/dL AST 21 (14-36) U/L ALT 37 H (0-35) U/L Alkaline Phosphatase 105 (38-126) U/L Troponin I (0.000-0.034) ng/mL Serum Total Protein 7.4 (6.3-8.2) g/dL Albumin 3.9 (3.5-5.0) g/dL Lipase 143 (23-300) U/L TSH 3rd Generation 0.555 (0.47-4.68) mIU/L Urine Color (Yellow) Urine Appearance (Clear) Urine pH (4.6-8.0) Ur Specific [place] (1.005-1.030) Urine Protein (Negative) Urine Glucose (UA) (Negative) mg/dL Urine Ketones (Negative) Urine Blood (Negative) Urine Nitrite (Negative) Urine Bilirubin (Negative) Urine Urobilinogen (0.2) mg/dL Ur Leukocyte Esterase (Negative) U Hyaline Cast (Auto) (0-2) /LPF Urine Microscopic RBC (0-5) /HPF Urine Microscopic WBC (0-5) /HPF Ur Epithelial Cells (None Seen) /HPF Urine Bacteria (None Seen) /HPF Urine Culture Reflexed (NO) Urine Opiates Level (NEGATIVE) Ur Methadone (NEGATIVE) Urine Barbiturates (NEGATIVE) Ur Phencyclidine (PCP) (NEGATIVE) Urine Amphetamine (NEGATIVE) U Benzodiazepine Level (NEGATIVE) Urine Cocaine (NEGATIVE) Urine Marijuana (THC) (NEGATIVE) 10/18/23 10/18/23 10/18/23 Range/Units 06:53 07:18 07:18 WBC (4.0-10.5) x10^3/uL RBC (4.1-5.4) x10^6/uL Hgb (12.0-16.0) g/dL Hct (35-47) % MCV (78-100) fL MCH (26-32) pg MCHC (32-36) g/dL RDW (11.5-14.0) % Plt Count (150-450) x10^3/uL MPV (7.5-11.0) fL Gran % (36.0-66.0) % Immature Gran % (Auto) (0.00-0.4) % Nucleat RBC Rel Count (0.00-0.1) % Eos # (Auto) (0-0.5) x10^3/uL Immature Gran # (Auto) (0.00-0.03) x10^3u/L Absolute Lymphs (auto) (1.0-4.6) x10^3/uL Absolute Monos (auto) (0.0-1.3) x10^3/uL Absolute Nucleated RBC (0.00-0.01) x10^3u/L Lymphocytes % (24.0-44.0) % Monocytes % (0.0-12.0) % Eosinophils % (0.00-5.0) % Basophils % (0.0-0.4) % Absolute Granulocytes (1.4-6.9) x10^3/uL Basophils # (0-0.4) x10^3/uL Sodium (135-145) mmol/L Potassium (3.5-5.1) mmol/L Chloride (98-107) mmol/L Carbon Dioxide (22-30) mmol/L Anion Gap (5-15) MEQ/L BUN (7-17) mg/dL Creatinine (0.52-1.04) mg/dL Estimated GFR ML/MIN Glucose (74-106) mg/dL Lactic Acid (0.4-2.0) Calcium (8.4-10.2) mg/dL Total Bilirubin (0.2-1.3) mg/dL AST (14-36) U/L ALT (0-35) U/L Alkaline Phosphatase (38-126) U/L Troponin I < 0.012 (0.000-0.034) ng/mL Serum Total Protein (6.3-8.2) g/dL Albumin (3.5-5.0) g/dL Lipase (23-300) U/L TSH 3rd Generation (0.47-4.68) mIU/L Urine Color Yellow (Yellow) Urine Appearance Cloudy A (Clear) Urine pH 5.0 (4.6-8.0) Ur Specific [place] 1.025 (1.005-1.030) Urine Protein Trace A (Negative) Urine Glucose (UA) Negative (Negative) mg/dL Urine Ketones Negative (Negative) Urine Blood Negative (Negative) Urine Nitrite Negative (Negative) Urine Bilirubin Negative (Negative) Urine Urobilinogen 0.2 (0.2) mg/dL Ur Leukocyte Esterase Moderate A (Negative) U Hyaline Cast (Auto) NONE SEEN (0-2) /LPF Urine Microscopic RBC 0-2 (0-5) /HPF Urine Microscopic WBC 21-50 A (0-5) /HPF Ur Epithelial Cells Moderate A (None Seen) /HPF Urine Bacteria Moderate A (None Seen) /HPF Urine Culture Reflexed YES (NO) Urine Opiates Level NEGATIVE (NEGATIVE) Ur Methadone NEGATIVE (NEGATIVE) Urine Barbiturates NEGATIVE (NEGATIVE) Ur Phencyclidine (PCP) NEGATIVE (NEGATIVE) Urine Amphetamine NEGATIVE (NEGATIVE) U Benzodiazepine Level NEGATIVE (NEGATIVE) Urine Cocaine NEGATIVE (NEGATIVE) Urine Marijuana (THC) POSITIVE A (NEGATIVE) - Radiology Impressions Radiology Exams & Impressions: Radiology Procedures Category Date Time Status HEAD WITHOUT CONTRAST [CT] Stat Exams 10/18/23 06:33 Completed Assessment/Plan (1) UTI (urinary tract infection) Current Visit: Yes Status: Acute Qualifiers: Encounter type: initial encounter Assessment & Plan: - Ceftriaxone - IVF - UC pending Code(s): N39.0 - URINARY TRACT INFECTION, SITE NOT SPECIFIED (2) Tremulousness Current Visit: Yes Status: Acute Assessment & Plan: - 2:2 drinking, UTI, dehydration - improving - CT head: IMPRESSION: 1. Right periventricular hypodense focus likely chronic lacunar infarction. It has been stable since the last study. 2. Few small chronic ischemic foci. 3. No intracranial hematoma, established major territorial infarct, or mass effect was noted. 4. Further evaluation by DWI/ADC MRI study is recommended if clinically indicated. Code(s): R25.1 - TREMOR, UNSPECIFIED (3) Diarrhea Current Visit: Yes Status: Acute Assessment & Plan: - 2:2 post op 1 week lap choley - IVF - trend labs Code(s): R19.7 - DIARRHEA, UNSPECIFIED (4) Dehydration Current Visit: Yes Status: Acute Assessment & Plan: - IVF - regular diet Code(s): E86.0 - DEHYDRATION (5) Alcohol use Current Visit: Yes Status: Acute Assessment & Plan: - Pt reports social drinking- last night had 2 glasses of wine and 2 shots of whiskey Code(s): Z78.9 - OTHER SPECIFIED HEALTH STATUS (6) Obesity (BMI 30-39.9) Current Visit: Yes Status: Chronic Assessment & Plan: - advised diet and exercise control Code(s): E66.9 - OBESITY, UNSPECIFIED (7) History of CVA (cerebrovascular accident) Current Visit: Yes Status: Acute Assessment & Plan: - per CT results - start ASA 81 mg daily Code(s): Z86.73 - PRSNL HX OF TIA (TIA), AND CEREB INFRC W/O RESID DEFICITS (8) Vomiting Current Visit: No Status: Resolved Assessment & Plan: - zofran PRN - IVF VTE: pt up and walking around PPI: pepcid PRN Next of Kin: D/C plan: tomorrow Code status: full Code(s): R11.10 - VOMITING, UNSPECIFIED
[2023-10-18] MEDS ORDERED: Zofran 4 MG/2 ML VIAL IV PRN (11:14)
[2023-10-18] MEDS ORDERED: Pepcid 20 MG PO PRN (11:15)
[2023-10-18] MEDS: hydroDIURIL 25 MG PO SCH (12:06)
[2023-10-18] MEDS: NORVASC 5 MG PO SCH (12:06)
[2023-10-18] MEDS: ECOTRIN 81 MG PO SCH (12:06)
[2023-10-18] MEDS: Cymbalta 30 MG Capsule PO SCH (12:06)
[2023-10-18] MEDS: Toprol Xl 100 MG PO SCH (12:06)
[2023-10-18] MEDS: Sodium Chloride 0.9% 1000 ML 1,000 ML IV SCH (17:38)
[2023-10-19 04:39] VITALS: RESP 18; O2SAT 94
[2023-10-19 05:39] LABS: Hematocrit 37.6 % (35-47); Hemoglobin 12.4 g/dL (12.0-16.0); Mean Cell Volume 94.7 fL (78-100); Mean Corpuscular Hemoglobin 31.2 pg (26-32); Mean Platelet Volume 10.4 fL (7.5-11.0); Platelet Count 355 x10^3/uL (150-450); Red Blood Count 3.97 x10^6/uL (4.1-5.4); Red Cell Distribution Width 13.3 % (11.5-14.0); White Blood Count 7.5 x10^3/uL (4.0-10.5)
[2023-10-19 06:05] LABS: ALBUMIN 3.1 g/dL (3.5-5.0); ANION GAP 7.5 MEQ/L (5-15); BILIRUBIN,TOTAL 0.3 mg/dL (0.2-1.3); Calcium 8.7 mg/dL (8.4-10.2); Creatinine 1 0.91 mg/dL (0.52-1.04); EST GLOMERULAR FILTRATION RATE 73.1 ML/MIN; Potassium 3.8 mmol/L (3.5-5.1); Total Protein 6.2 g/dL (6.3-8.2)
[2023-10-19 07:08] VITALS: BP 161/72; PULSE 79; TEMP 97.8
[2023-10-19] MEDS: ROCEPHIN 1 GM / 100 ML NaCl 1 GM/100 ML IVPB IV SCH (08:31)
--- NOTE | 2023-10-19 10:12 | PCM.DS ---
Discharge Summary Date of Admission: 10/18/23 09:35 Date of Discharge: 10/19/23 Admitting Physician: SARAH RIBEIRO MD Primary Care Provider: NO FAMILY DOCTOR Allergies Allergies latex Allergy (Mild, Verified 10/18/23 06:52) Rash tape Allergy (Mild, Uncoded 10/18/23 06:52) Rash Hospital Summary - Hospital Course Hospital Course: 10/18/23 is a 58 year old female with PMHX of GERD, migraines, HTN and recent lap choley surgery 1 week ago 10/07/23. She presented to ED by private vehicle for tremulousness and "not feeling right." Pt reportedly had 2 glasses of wine and 2 shots last night at a [employer] party. She went to bed at 01:00 at her baseline me ntal status, non-tremulous. Pt states she woke up at 03:00 this AM, was shaking diffusely and not feeling right with dry mouth, rapid HR, and tingling of BLUE. She decided to wake her and have him bring her to the ED. In ER pt stated she felt weak all over, some continued tingling in her BLUEs. On admission she has some tremors with walking only. Neuro exam is otherwise unremarkable. She does have a UTI and treated in ER with ceftriaxone will continue. She received two 1 L boluses if NS in ER for dehydration. She reports she is feeling better since admission and IVF. Will continue NS @ 75ml/hr. She denies CP, SOB, abd. pain, N/V. She reports she has had some diarrhea but correlates this with recent gallbladder surgery. 10/19/23 Pt resting in bed. She explained she feels much better and would like to go home. She no longer has shaking. She is eating and drinking well. UC pending. Will continue to follow results. Will d/c with antibiotics. She will need to avoid alcohol as this is what caused her sxs. She denies CP, SOB, abd. pain , N/V/D. - Vitals & Intake/Output Vital Signs: Vital Signs Temperature 97.8 F 10/19/23 07:07 Pulse Rate 79 10/19/23 07:07 Respiratory Rate 18 10/19/23 07:07 Blood Pressure 161/72 10/19/23 07:07 O2 Sat by Pulse Oximetry 94 L 10/19/23 07:07 Intake & Output: Intake & Output 10/16/23 10/17/23 10/18/23 10/19/23 11:59 11:59 11:59 11:59 Intake Total 1152 Output Total 400 Balance 752 Weight 102.5 kg - Lab Result Diagrams: 10/19/23 05:16 10/19/23 05:16 Lab Results-Last 24 Hrs: Lab Results-Last 24 Hours 10/18/23 10/18/23 10/19/23 Range/Units 02:45 11:00 05:16 WBC 7.5 (4.0-10.5) x10^3/uL RBC 3.97 L (4.1-5.4) x10^6/uL Hgb 12.4 (12.0-16.0) g/dL Hct 37.6 (35-47) % MCV 94.7 (78-100) fL MCH 31.2 (26-32) pg MCHC 33.0 (32-36) g/dL RDW 13.3 (11.5-14.0) % Plt Count 355 (150-450) x10^3/uL MPV 10.4 (7.5-11.0) fL Sodium (135-145) mmol/L Potassium (3.5-5.1) mmol/L Chloride (98-107) mmol/L Carbon Dioxide (22-30) mmol/L Anion Gap (5-15) MEQ/L BUN (7-17) mg/dL Creatinine (0.52-1.04) mg/dL Estimated GFR ML/MIN Glucose (74-106) mg/dL Calcium (8.4-10.2) mg/dL Total Bilirubin (0.2-1.3) mg/dL AST (14-36) U/L ALT (0-35) U/L Alkaline Phosphatase (38-126) U/L Troponin I < 0.012 < 0.012 (0.000-0.034) ng/mL Serum Total Protein (6.3-8.2) g/dL Albumin (3.5-5.0) g/dL 10/19/23 Range/Units 05:16 WBC (4.0-10.5) x10^3/uL RBC (4.1-5.4) x10^6/uL Hgb (12.0-16.0) g/dL Hct (35-47) % MCV (78-100) fL MCH (26-32) pg MCHC (32-36) g/dL RDW (11.5-14.0) % Plt Count (150-450) x10^3/uL MPV (7.5-11.0) fL Sodium 140 (135-145) mmol/L Potassium 3.8 (3.5-5.1) mmol/L Chloride 110 H (98-107) mmol/L Carbon Dioxide 26 (22-30) mmol/L Anion Gap 7.5 (5-15) MEQ/L BUN 12 (7-17) mg/dL Creatinine 0.91 (0.52-1.04) mg/dL Estimated GFR 73.1 ML/MIN Glucose 95 (74-106) mg/dL Calcium 8.7 (8.4-10.2) mg/dL Total Bilirubin 0.30 (0.2-1.3) mg/dL AST 18 (14-36) U/L ALT 24 (0-35) U/L Alkaline Phosphatase 86 (38-126) U/L Troponin I (0.000-0.034) ng/mL Serum Total Protein 6.2 L (6.3-8.2) g/dL Albumin 3.1 L (3.5-5.0) g/dL - Radiology Exams Ordered Rad Exams-Entire Visit: Radiology Procedures Category Date Time Status HEAD WITHOUT CONTRAST [CT] Stat Exams 10/18/23 06:33 Completed Discharge Exam General Appearance: no apparent distress, alert Neurologic Exam: alert, oriented x 3, cooperative, normal mood/affect, nml cerebellar function, sensation nml, No motor deficits Eye Exam: PERRL, EOMI, eyes nml inspection Ears, Nose, Throat Exam: normal ENT inspection, pharynx normal, moist mucous membranes Neck Exam: normal inspection, non-tender, supple, full range of motion Respiratory Exam: normal breath sounds, lungs clear, No respiratory distress Cardiovascular Exam: regular rate/rhythm, normal heart sounds Gastrointestinal/Abdomen Exam: soft, No tenderness, No mass Pelvic Exam: deferred Rectal Exam: deferred Back Exam: normal inspection, normal range of motion, No CVA tenderness, No vertebral tenderness Extremity Exam: normal inspection, normal range of motion Skin Exam: normal color, warm, dry Final Diagnosis/Problem List - Final Discharge Diagnosis/Problem (1) UTI (urinary tract infection) Current Visit: Yes Status: Acute Code(s): N39.0 - URINARY TRACT INFECTION, SITE NOT SPECIFIED (2) Tremulousness Current Visit: Yes Status: Acute Code(s): R25.1 - TREMOR, UNSPECIFIED (3) Diarrhea Current Visit: Yes Status: Acute Code(s): R19.7 - DIARRHEA, UNSPECIFIED (4) Dehydration Current Visit: Yes Status: Acute Code(s): E86.0 - DEHYDRATION (5) Alcohol use Current Visit: Yes Status: Acute Code(s): Z78.9 - OTHER SPECIFIED HEALTH STATUS (6) Obesity (BMI 30-39.9) Current Visit: Yes Status: Chronic Code(s): E66.9 - OBESITY, UNSPECIFIED (7) History of CVA (cerebrovascular accident) Current Visit: Yes Status: Acute Code(s): Z86.73 - PRSNL HX OF TIA (TIA), AND CEREB INFRC W/O RESID DEFICITS (8) Vomiting Current Visit: No Status: Resolved Assessment & Plan: (1) UTI (urinary tract infection) Current Visit: Yes Status: Acute Qualifiers: Encounter type: initial encounter Assessment & Plan: - Ceftriaxone - IVF - UC pending Code(s): N39.0 - URINARY TRACT INFECTION, SITE NOT SPECIFIED (2) Tremulousness Current Visit: Yes Status: Acute Assessment & Plan: - 2:2 drinking ETOH, UTI, dehydration - improving - CT head: IMPRESSION: 1. Right periventricular hypodense focus likely chronic lacunar infarction. It has been stable since the last study. 2. Few small chronic ischemic foci. 3. No intracranial hematoma, established major territorial infarct, or mass effect was noted. 4. Further evaluation by DWI/ADC MRI study is recommended if clinically indicated. 10/18 - resolved Code(s): R25.1 - TREMOR, UNSPECIFIED (3) Diarrhea Current Visit: Yes Status: Acute Assessment & Plan: - 2:2 post op 1 week lap choley - IVF - trend labs 10/18 - resolved Code(s): R19.7 - DIARRHEA, UNSPECIFIED (4) Dehydration Current Visit: Yes Status: Acute Assessment & Plan: - IVF - regular diet Code(s): E86.0 - DEHYDRATION (5) Alcohol use Current Visit: Yes Status: Acute Assessment & Plan: - Pt reports social drinking- last night had 2 glasses of wine and 2 shots of whiskey - Advised to avoid alcohol Code(s): Z78.9 - OTHER SPECIFIED HEALTH STATUS (6) Obesity (BMI 30-39.9) Current Visit: Yes Status: Chronic Assessment & Plan: - advised diet and exercise control Code(s): E66.9 - OBESITY, UNSPECIFIED (7) History of CVA (cerebrovascular accident) Current Visit: Yes Status: Acute Assessment & Plan: - per CT results - start ASA 81 mg daily Code(s): Z86.73 - PRSNL HX OF TIA (TIA), AND CEREB INFRC W/O RESID DEFICITS (8) Vomiting Current Visit: No Status: Resolved Assessment & Plan: - zofran PRN - IVF 10/18 - resolved Code(s): R11.10 - VOMITING, UNSPECIFIED - Discharge Discharge Date: 10/19/23 Disposition: Home, Self-Care Condition: Stable Prescriptions: New Aspirin EC 81 mg [Ecotrin 81 mg] 81 mg PO DAILY 30 Days #30 tablet Continue Metoprolol Succinate 100 mg [Toprol Xl 100 MG] 100 mg PO DAILY hydroCHLOROthiazide [Hydrochlorothiazide] 12.5 mg PO DAILY 30 Days #30 cap Duloxetine HCl 30 mg [Cymbalta 30 MG Capsule] 30 mg PO DAILY Amlodipine Besylate 5 mg PO DAILY Additional Instructions: Avoid alcohol, Please make an appointment with a PCP for post hospital follow up care. Follow up with: DOCTOR,NO FAMILY [Primary Care Provider] -
== END 2023-10-19 11:08 | disposition home or self-care (01) ==
LOC: ED 06:02 → MED SURG 09:35
PROVIDERS: ADMIT Internal Medicine; ATTEND Internal Medicine
DX: N39.0 Urinary tract infection, site not specified (principal); R25.1 Tremor, unspecified; R19.7 Diarrhea, unspecified; E86.0 Dehydration; F10.90 Alcohol use, unspecified, uncomplicated; E66.9 Obesity, unspecified; Z86.73 Personal history of transient ischemic attack (TIA), and cerebral infarction without residual deficits; I10 Essential (primary) hypertension; R00.0 Tachycardia, unspecified; R11.11 Vomiting without nausea; Z79.899 Other long term (current) drug therapy; Z20.828 Contact with and (suspected) exposure to other viral communicable diseases
CPT/HCPCS: 36415; 70450; 80053; 80307; 81001; 83605; 83690; 84443; 84484; 85025; 85027; 87086; 96360; 96361; 96365; 99285; G0378; J0696; Q3014; A9270-GY

== ENCOUNTER 2024-03-31 13:35 | Emergency (ER) | payer OTHER ==
--- NOTE | 2024-03-31 13:39 | ERPHSYRPT ---
- History of Present Illness Time Seen by Provider: 03/31/24 13:39 Historian: patient, family Exam Limitations: no limitations Physician History: This is a morbidly obese 59-year-old white female who was brought into the hospital emergency department by private vehicle escorted by her primary care provider. She was complaining of right-sided chest pressure. Patient has no diagnosed history of coronary artery disease. Patient was sitting in the front passenger seat approximately 30 minutes prior to arrival when she began having right sided chest pressure where her dog was sitting. She then felt a tightness around her forehead like a vice lead ios developer and began having tunnel vision. Patient appeared to be having a panic attack upon arrival to the emergency department. Patient has a history of migraine headaches, gastroesophageal reflux disease, hypertension and history of panic attacks. Her initial systolic blood pressure was over 200. Patient stated that she did take her blood pressure medication today Activities at Onset: none Quality: pressure Location: other (Right side) Chest Pain Radiation: no radiation Severity of Pain-Max: mild (Moderate) Severity of Pain-Current: mild (To moderate) Associated Symptoms: shortness of breath Prior Chest Pain/Cardiac Workup: no prior chest pain, no prior cardiac workup Nitro Today/Relief: no nitro taken today Aspirin Treatment Today: 81 mg x 4, provided by ED Allergies/Adverse Reactions: latex Allergy (Mild, Verified 03/31/24 13:36) Rash tape Allergy (Mild, Uncoded 03/31/24 13:36) Rash Home Medications: Metoprolol Succinate 100 mg [Toprol Xl 100 MG] 100 mg PO DAILY 10/04/23 [History] Amlodipine Besylate 5 mg PO DAILY 10/18/23 [History] Duloxetine HCl 30 mg [Cymbalta 30 MG Capsule] 30 mg PO DAILY 10/18/23 [History] lisinopriL [Lisinopril] 40 mg PO DAILY 03/31/24 [History] Hx Tetanus, Diphtheria Vaccination/Date Given: Yes Hx Influenza Vaccination/Date Given: Yes Hx Pneumococcal Vaccination/Date Given: No Travel Risk - International Travel Have you traveled outside of the country in past 3 weeks: No - Emerging Infectious Disease Are you exhibiting symptoms associated with any current EIDs: No - Review of Systems Constitutional: No Symptoms Eyes: No Symptoms Ears, Nose, & Throat: No Symptoms Respiratory: No Symptoms Cardiac: Chest Pain Abdominal/Gastrointestinal: No Symptoms Genitourinary Symptoms: No Symptoms Musculoskeletal: No Symptoms Skin: No Symptoms Neurological: No Symptoms Psychological: Anxiety Endocrine: No Symptoms Hematologic/Lymphatic: No Symptoms Immunological/Allergic: No Symptoms All Other Systems: Reviewed and Negative - Past Medical History Pertinent Past Medical History: Yes Neurological History: Migraines ENT History: No Pertinent History Cardiac History: Hypertension Respiratory History: No Pertinent History Endocrine Medical History: No Pertinent History Musculoskeletal History: No Pertinent History GI Medical History: GERD, Gallbladder Disease History: No Pertinent History Psycho-Social History: No Pertinent History Female Reproductive Disorders: No Pertinent History Other Medical History: recent pne diagnosis - Past Surgical History Past Surgical History: Yes Neuro Surgical History: No Pertinent History Cardiac: No Pertinent History Respiratory: No Pertinent History Gastrointestinal: Cholecystectomy Genitourinary: No Pertinent History Musculoskeletal: Orthopedic Surgery Female Surgical History: Tubal Ligation, Other Other Surgical History: CYST REMOVED FROM LEFT WRIST, colonoscopy Significant Family History: no pertinent family hx - Social History Smoking Status: Former smoker Exposure to second hand smoke: No Drug Use: none Patient Lives Alone: No - Social Determinants of Health Will the patient participate in the screening: Yes Do you worry about a steady place to live?: No In the past 12 months,have you had to go without utilities?: No Transportation Issues: No Has anyone in your support network made you feel unsafe?: No Have you or anyone in your house had to go without enough: No - Nursing Vital Signs Nursing Vital Signs: Initial Vital Signs Temperature 97.7 F 03/31/24 13:37 Pulse Rate 109 H 03/31/24 13:37 Blood Pressure 223/121 03/31/24 13:37 O2 Sat by Pulse Oximetry 96 03/31/24 13:37 Pain Scale Pain Intensity 0 - Physical Exam General Appearance: mild distress, alert, anxiety, obese Eye Exam: PERRL/EOMI, eyes nml inspection Ears, Nose, Throat Exam: normal ENT inspection, moist mucous membranes Neck Exam: normal inspection, non-tender, supple, full range of motion Respiratory Exam: normal breath sounds, lungs clear, airway intact, No chest tenderness, No respiratory distress Cardiovascular Exam: normal peripheral pulses, tachycardia Gastrointestinal/Abdomen Exam: soft, normal bowel sounds, No tenderness Pelvic Exam: not done Rectal Exam: not done Back Exam: normal inspection, normal range of motion, No CVA tenderness, No vertebral tenderness Extremity Exam: normal inspection, normal range of motion, pelvis stable Neurologic Exam: alert, oriented x 3, cooperative, inspector packager II-XII nml as tested, nml cerebellar function, nml station & gait, sensation nml Skin Exam: normal color, warm, dry Lymphatic Exam: No adenopathy SpO2 Interpretation: normal O2 Delivery: Room Air - Course Nursing assessment & vital signs reviewed: Yes EKG Interpreted by Me: RATE (112), Sinus Tach, NORMAL AXIS, NORMAL INTERVALS, NORMAL QRS, Other (No acute ischemic changes on today's twelve-lead EKG. Improved twelve-lead EKG over the comparison twelve-lead EKG dated 10/18/2023.) Ordered Tests: Active Orders 24 hr Category Date Time Status EKG-ER Only STAT Care 03/31/24 13:46 Active IV Insertion STAT Care 03/31/24 13:46 Active Pulse Oximetry (ED) STAT Care 03/31/24 13:46 Active CHEST 1 VIEW (PORTABLE) Stat Exams 03/31/24 15:10 Completed HEAD WITHOUT CONTRAST [CT] Stat Exams 03/31/24 13:40 Completed CBC W DIFF Stat Lab 03/31/24 13:35 Completed CMP Stat Lab 03/31/24 13:35 Completed D-DIMER QUANTITATIVE Stat Lab 03/31/24 13:35 Completed NT PRO BNPII Stat Lab 03/31/24 13:35 Completed PROTIME WITH INR Stat Lab 03/31/24 13:35 Completed TROPONIN Q4H Lab 03/31/24 13:35 Completed TROPONIN Q4H Lab 03/31/24 18:00 Ordered TROPONIN Q4H Lab 03/31/24 22:00 Ordered Medication Summary Discontinued Medications Generic Name Dose Route Start Last Admin Trade Name [place]q PRN Reason Stop Dose Admin Aspirin 324 mg 03/31/24 13:46 03/31/24 13:57 Aspirin 81 Mg Tab.Chew PO 03/31/24 13:47 324 mg STAT ONE Administration Aspirin Confirm 03/31/24 13:54 Aspirin 81 Mg Tab.Chew Administered 03/31/24 13:55 Dose 324 mg .ROUTE .STK-MED ONE Lorazepam 1 mg 03/31/24 13:47 03/31/24 14:37 Lorazepam 2 Mg/1 Ml 2 Mg Vial IV 03/31/24 13:48 1 mg STAT ONE Administration Lorazepam Confirm 03/31/24 14:36 Lorazepam 2 Mg/1 Ml 2 Mg Vial Administered 03/31/24 14:37 Dose 2 mg .ROUTE .STK-MED ONE Morphine Sulfate 2 mg 03/31/24 13:46 03/31/24 13:59 Morphine Sulfate 2 Mg/Ml Inj IV 03/31/24 13:47 2 mg STAT ONE Administration Morphine Sulfate Confirm 03/31/24 13:54 Morphine Sulfate 2 Mg/Ml Inj Administered 03/31/24 13:55 Dose 2 mg .ROUTE .STK-MED ONE Ondansetron HCl 4 mg 03/31/24 13:46 03/31/24 13:57 Ondansetron Hcl 4 Mg/2 Ml Vial IV 03/31/24 13:47 4 mg STAT ONE Administration Ondansetron HCl Confirm 03/31/24 13:53 Ondansetron Hcl 4 Mg/2 Ml Vial Administered 03/31/24 13:54 Dose 4 mg .ROUTE .STK-MED ONE Lab/Rad Data: Laboratory Result Diagrams 03/31/24 13:35 03/31/24 13:35 Laboratory Results 03/31/24 03/31/24 03/31/24 Range/Units 13:35 13:35 13:35 WBC (3.98-10.04) x10^3/uL RBC (3.93-5.22) x10^6/uL Hgb (11.2-15.7) g/dL Hct (34.1-44.9) % MCV (79.4-94.8) fL MCH (25.6-32.2) pg MCHC (32.2-35.5) g/dL RDW (11.7-14.4) % Plt Count (182-369) x10^3/uL MPV (9.4-12.3) fL Gran % (34.0-71.1) % Immature Gran % (Auto) (0.001-0.429) % Nucleat RBC Rel Count (0.00-0.2) % Eos # (Auto) (0.04-0.36) x10^3/uL Immature Gran # (Auto) (0.001-0.031) x10^3u/L Absolute Lymphs (auto) (1.18-3.74) x10^3/uL Absolute Monos (auto) (0.24-0.86) x10^3/uL Absolute Nucleated RBC (0.00-0.012) x10^3u/L Lymphocytes % (19.3-51.7) % Monocytes % (4.7-12.5) % Eosinophils % (0.7-5.8) % Basophils % (0.1-1.2) % Absolute Granulocytes (1.56-6.13) x10^3/uL Basophils # (0.01-0.08) x10^3/uL PT 9.8 (9.4-12.5) SECONDS INR 0.89 (0.8-3.0) D-Dimer 0.33 (0.0-0.50) mg/L Sodium 141 (135-145) mmol/L Potassium 4.3 (3.5-5.1) mmol/L Chloride 107 (98-107) mmol/L Carbon Dioxide 27 (22-30) mmol/L Anion Gap 11.3 (5-15) MEQ/L BUN 16 (7-17) mg/dL Creatinine 0.94 (0.52-1.04) mg/dL Estimated GFR 69.9 ML/MIN Glucose 108 H (74-106) mg/dL Calcium 9.4 (8.4-10.2) mg/dL Total Bilirubin 0.50 (0.2-1.3) mg/dL AST 31 (14-36) U/L ALT 38 H (0-35) U/L Alkaline Phosphatase 104 (38-126) U/L Troponin I < 0.012 (0.000-0.033) ng/mL NT-Pro-B Natriuret Pep 229 (<300) pg/mL Serum Total Protein 7.4 (6.3-8.2) g/dL Albumin 4.1 (3.5-5.0) g/dL 03/31/24 Range/Units 13:35 WBC 9.1 (3.98-10.04) x10^3/uL RBC 4.46 (3.93-5.22) x10^6/uL Hgb 13.8 (11.2-15.7) g/dL Hct 41.2 (34.1-44.9) % MCV 92.4 (79.4-94.8) fL MCH 30.9 (25.6-32.2) pg MCHC 33.5 (32.2-35.5) g/dL RDW 13.5 (11.7-14.4) % Plt Count 337 (182-369) x10^3/uL MPV 10.4 (9.4-12.3) fL Gran % 60.8 (34.0-71.1) % Immature Gran % (Auto) 0.4 (0.001-0.429) % Nucleat RBC Rel Count 0.0 (0.00-0.2) % Eos # (Auto) 0.20 (0.04-0.36) x10^3/uL Immature Gran # (Auto) 0.04 H (0.001-0.031) x10^3u/L Absolute Lymphs (auto) 2.59 (1.18-3.74) x10^3/uL Absolute Monos (auto) 0.68 (0.24-0.86) x10^3/uL Absolute Nucleated RBC 0.00 (0.00-0.012) x10^3u/L Lymphocytes % 28.4 (19.3-51.7) % Monocytes % 7.4 (4.7-12.5) % Eosinophils % 2.2 (0.7-5.8) % Basophils % 0.8 (0.1-1.2) % Absolute Granulocytes 5.55 (1.56-6.13) x10^3/uL Basophils # 0.07 (0.01-0.08) x10^3/uL PT (9.4-12.5) SECONDS INR (0.8-3.0) D-Dimer (0.0-0.50) mg/L Sodium (135-145) mmol/L Potassium (3.5-5.1) mmol/L Chloride (98-107) mmol/L Carbon Dioxide (22-30) mmol/L Anion Gap (5-15) MEQ/L BUN (7-17) mg/dL Creatinine (0.52-1.04) mg/dL Estimated GFR ML/MIN Glucose (74-106) mg/dL Calcium (8.4-10.2) mg/dL Total Bilirubin (0.2-1.3) mg/dL AST (14-36) U/L ALT (0-35) U/L Alkaline Phosphatase (38-126) U/L Troponin I (0.000-0.033) ng/mL NT-Pro-B Natriuret Pep (<300) pg/mL Serum Total Protein (6.3-8.2) g/dL Albumin (3.5-5.0) g/dL - Progress Progress: improved, re-examined Air Movement: good Progress Note: 03/31/24 15:10 My medical decision making and the assignment of moderate complexity to this patient's medical issue today is based on review of the patient's past medical history, review the patient's medication list, reviewed patient drug allergy list, history present illness and physical findings on examination. The workup includes placement of intravenous line, twelve-lead EKG, D-dimer level, CBC, CMP, troponin level, BNP level, chest x-ray, and providing the patient with 2 mg intravenous morphine, 4 mg intravenous Zofran and 1 mg intravenous Ativan. Differential diagnosis includes but is not limited to panic attack, arrhythmia, electrolyte abnormalities, hypertension, pulmonary embolus, myocardial infarction I interpreted the patient's laboratory data results. Based on the patient's laboratory data results, the patient has no acute, emergent medical issue. Patient's symptoms have resolved. Her blood pressure has also improved. 03/31/24 16:16 Chest x-ray was interpreted by radiologist and I reviewed the impression. The impression states minimal lingula subsegmental atelectasis/scarring. No new or acute findings. CT scan of the head without contrast was interpreted by radiologist and I reviewed the impression. The impression states again, atrophy and degenerative micro ischemia changes within normal limits for age. No new/acute abnormalities. Blood Culture(s) Obtained: No Antibiotics given: No Counseled pt/family regarding: lab results, diagnosis, need for follow-up, rad results Medical Desision Making - Independent Historian Additional History obtained from: Spouse - Diagnostic Testing Diagnostic test were ordered, analyzed, and reviewed by me: Yes Radiological Interpretation: Reviewed by me, Teleradiologist Report - Risk of complications Low Risk: Low risk of morbidity from additional dx testing or treatment - Departure Departure Disposition: Home Clinical Impression: Anxiety about health, Nonspecific chest pain, Hypertension Condition: Stable Critical Care Time: No Referrals: DOCTOR,NO FAMILY [Primary Care Provider] - Follow up/PCP as directed Additional Instructions: Drink plenty of fluids. Take your medications as prescribed. Call your primary care provider tomorrow, 04/01/2024, to make arranges for follow-up appointment for further evaluation management.
[2024-03-31] MEDS ORDERED: Zofran 4 MG/2 ML VIAL ONE (13:53)
[2024-03-31] MEDS ORDERED: MORPHINE SULFATE 2 MG INJ ONE (13:54)
[2024-03-31] MEDS ORDERED: BABY ASPIRIN 81 MG CHEW ONE (13:54)
[2024-03-31] MEDS: Zofran 4 MG/2 ML VIAL IV ONE (13:57)
[2024-03-31] MEDS: BABY ASPIRIN 81 MG CHEW PO ONE (13:57)
[2024-03-31] MEDS: MORPHINE SULFATE 2 MG INJ IV ONE (13:59)
[2024-03-31 14:00] VITALS: TEMP 97.7
[2024-03-31 14:10] LABS: D-DIMER QUANTITATIVE 0.33 mg/L (0.0-0.50); INR 0.89 (0.8-3.0); PROTIME 9.8 SECONDS (9.4-12.5)
--- NOTE | 2024-03-31 14:10 | XRAY ---
Indication: Numbness. Multiple contiguous axial images obtained through the head without contrast. Comparison: October 18, 2023 Age-appropriate global atrophy and grossly stable minimal periventricular degenerative micro-ischemia. No acute intracranial hemorrhage, abnormal extra-axial fluid collection, mass effect or fourth ventricle is midline without hydrocephalus. Caba-white matter differentiation preserved. Bony calvarium intact. Visualized paranasal sinuses and mastoid air cells are clear. Impression: Again atrophy and degenerative micro-ischemia within normal limits. No new/acute intracranial abnormalities.
[2024-03-31 14:12] LABS: Absolute Neutrophil Ct (ANC) 5.55 x10^3/uL (1.56-6.13); BASOPHIL % 0.8 % (0.1-1.2); Basophil (Absolute #) 0.07 x10^3/uL (0.01-0.08); Eosinophil % 2.2 % (0.7-5.8); Hematocrit 41.2 % (34.1-44.9); Hemoglobin 13.8 g/dL (11.2-15.7); IMMATURE GRAN # 0.04 x10^3u/L (0.001-0.031); IMMATURE GRAN % 0.4 % (0.001-0.429); Lymphocyte (Absolute #) 2.59 x10^3/uL (1.18-3.74); Lymphocytes % 28.4 % (19.3-51.7); Mean Cell Volume 92.4 fL (79.4-94.8); Mean Corpuscular Hemoglobin 30.9 pg (25.6-32.2); Mean Corpuscular Hgb Concent. 33.5 g/dL (32.2-35.5); Mean Platelet Volume 10.4 fL (9.4-12.3); Monocyte (Absolute #) 0.68 x10^3/uL (0.24-0.86); Monocytes % 7.4 % (4.7-12.5); Neutrophil % 60.8 % (34.0-71.1); Platelet Count 337 x10^3/uL (182-369); Red Blood Count 4.46 x10^6/uL (3.93-5.22); Red Cell Distribution Width 13.5 % (11.7-14.4); White Blood Count 9.1 x10^3/uL (3.98-10.04)
[2024-03-31 14:18] LABS: ALBUMIN 4.1 g/dL (3.5-5.0); ANION GAP 11.3 MEQ/L (5-15); BILIRUBIN,TOTAL 0.5 mg/dL (0.2-1.3); Calcium 9.4 mg/dL (8.4-10.2); Creatinine 1 0.94 mg/dL (0.52-1.04); EST GLOMERULAR FILTRATION RATE 69.9 ML/MIN; Potassium 4.3 mmol/L (3.5-5.1); Total Protein 7.4 g/dL (6.3-8.2)
[2024-03-31] MEDS ORDERED: Ativan 2 MG/1 ML VIAL ONE (14:36)
[2024-03-31] MEDS: Ativan 2 MG/1 ML VIAL IV ONE (14:37)
--- NOTE | 2024-03-31 15:23 | XRAY ---
Indication: Chest pain. Short of breath. Comparison: October 03, 2020 Portable chest now demonstrates minimal lingula subsegmental atelectasis/scarring. Remaining heart and lungs normal. Bony thorax intact again with mild degenerative changes. No acute findings.
[2024-03-31 16:05] VITALS: BP 181/94; PULSE 78; RESP 16; O2SAT 92
[2024-03-31] MEDS ORDERED: LOPRESSOR INJECTION IV ONE (16:20)
[2024-03-31] MEDS: LOPRESSOR INJECTION IV ONE (16:22)
== END 2024-03-31 16:55 | disposition home or self-care (01) ==
LOC: ED 13:35
DX: F45.9 Somatoform disorder, unspecified (principal); R07.9 Chest pain, unspecified; I10 Essential (primary) hypertension; Z79.899 Other long term (current) drug therapy
CPT/HCPCS: 36000; 36415; 70450; 71045; 80053; 83880; 84484; 85025; 85379; 85610; 93005; 94760; 96374; 96375; 99284; J2060; J2270; J2405; A9270-GY

== ENCOUNTER 2024-05-20 21:52 | Emergency (ER) | payer OTHER ==
[2024-05-20 22:11] VITALS: TEMP 97.7
--- NOTE | 2024-05-20 22:16 | ERPHSYRPT ---
- History of Present Illness Time Seen by Provider: 05/20/24 22:15 Source: patient, family Exam Limitations: no limitations Patient Subjective Stated Complaint: pt states that she was bowling and slid and fell on both knees. pt states that she twisted her knee Triage Nursing Assessment: pt came into the er via wheelchair; pt transferred to cot with stand by assist; c/o knee pain; pt states 8/10 to rt knee; swelling present to rt knee; abrasion to rt knee; skin PDW; no respiratory distress present; hypertensive Physician History: This is an obese white female patient who does not have a primary care provider and arrives to the emergency department by private vehicle escorted by her significant other secondary to bilateral knee pain. The right is worse than the left. Patient slipped and fell while bowling and twisted her knees. There is an abrasion on the anterior aspect of her right knee. She did not hit her head. She did not lose consciousness. There is no significant pain anywhere else and she just wants her knees x-rayed. Patient has a history of hypertension, migraine headache, gastroesophageal reflux disease and panic attacks. Occurred: just prior to arrival Injuries/Pain Location: lower extremity (Bilateral anterior knees) Loss of Consciousness: no loss of consciousness Quality: sharpness Severity of Pain-Max: moderate Severity of Pain-Current: moderate Modifying Factors: Improves With: movement Associated Symptoms (Fall): denies symptoms Allergies/Adverse Reactions: latex Allergy (Mild, Verified 05/20/24 21:58) Rash tape Allergy (Mild, Uncoded 05/20/24 21:58) Rash Home Medications: Metoprolol Succinate 100 mg [Toprol Xl 100 MG] 100 mg PO DAILY 10/04/23 [History] Amlodipine Besylate 5 mg PO DAILY 10/18/23 [History] Duloxetine HCl 30 mg [Cymbalta 30 MG Capsule] 30 mg PO DAILY 10/18/23 [History] lisinopriL [Lisinopril] 40 mg PO DAILY 03/31/24 [History] Hx Tetanus, Diphtheria Vaccination/Date Given: Yes Hx Influenza Vaccination/Date Given: No Hx Pneumococcal Vaccination/Date Given: No Travel Risk - International Travel Have you traveled outside of the country in past 3 weeks: No - Emerging Infectious Disease Are you exhibiting symptoms associated with any current EIDs: No - Review of Systems Constitutional: No Symptoms Eyes: No Symptoms Ears, Nose, & Throat: No Symptoms Respiratory: No Symptoms Cardiac: No Symptoms Abdominal/Gastrointestinal: No Symptoms Genitourinary Symptoms: No Symptoms Musculoskeletal: Fall (Slipped and fell during bowling), Injury (Bilateral knees) Skin: Other (Abrasion to the skin of the right anterior knee) Neurological: No Symptoms Psychological: No Symptoms Endocrine: No Symptoms Hematologic/Lymphatic: No Symptoms Immunological/Allergic: No Symptoms All Other Systems: Reviewed and Negative - Past Medical History Pertinent Past Medical History: Yes Neurological History: Migraines ENT History: No Pertinent History Cardiac History: Hypertension Respiratory History: No Pertinent History Endocrine Medical History: No Pertinent History Musculoskeletal History: No Pertinent History GI Medical History: GERD, Gallbladder Disease History: No Pertinent History Psycho-Social History: No Pertinent History Female Reproductive Disorders: No Pertinent History Other Medical History: recent pne diagnosis - Past Surgical History Past Surgical History: Yes Neuro Surgical History: No Pertinent History Cardiac: No Pertinent History Respiratory: No Pertinent History Gastrointestinal: Cholecystectomy Genitourinary: No Pertinent History Musculoskeletal: Orthopedic Surgery Female Surgical History: Tubal Ligation, Other Other Surgical History: CYST REMOVED FROM LEFT WRIST, colonoscopy Significant Family History: no pertinent family hx - Social History Smoking Status: Former smoker Exposure to second hand smoke: No Drug Use: none Patient Lives Alone: No - Social Determinants of Health Will the patient participate in the screening: Yes Do you worry about a steady place to live?: No Do you have any problems with any of the following?: No known problems In the past 12 months,have you had to go without utilities?: No Transportation Issues: No Has anyone in your support network made you feel unsafe?: No Have you or anyone in your house had to go without enough: No - Nursing Vital Signs Nursing Vital Signs: Initial Vital Signs Temperature 97.7 F 05/20/24 22:00 Pulse Rate 99 H 05/20/24 22:00 Respiratory Rate 24 05/20/24 22:00 Blood Pressure 186/94 05/20/24 22:00 O2 Sat by Pulse Oximetry 99 05/20/24 22:00 Pain Scale Pain Intensity 8 - [place] Coma Score Best Eye Response ([place]): (4) open spontaneously Best Verbal Response (Sai): (5) oriented Best Motor Response ([place]): (6) obeys commands [place] Total: 15 - Physical Exam General Appearance: no apparent distress, alert, anxiety Head Injury: no evidence of injury Eye Exam: PERRL/EOMI, eyes nml inspection ENT Exam: airway nml, nml ext.inspection, No evidence of ENT injury Neck Exam: supple, trachea midline, full range of motion, normal alignment Respiratory/Chest Exam: No chest tenderness, No respiratory distress Gastrointestinal Exam: No tenderness Rectal Exam: deferred Back Exam: normal inspection, normal range of motion, No CVA tenderness, No vertebral tenderness Extremity Exam: normal range of motion, evidence of injury (Abrasion to the skin of the right knee anteriorly), pain with movement (Bilateral knees), tenderness (Bilateral knees) Neurologic Exam: alert, oriented x 3, cooperative, knife setter II-XII nml as tested, sensation nml SpO2 Interpretation: normal SpO2: 97 O2 Delivery: Nasal Cannula - Course Nursing assessment & vital signs reviewed: Yes Ordered Tests: Active Orders 24 hr Category Date Time Status KNEE (1 OR 2 VIEW) Stat Exams 05/20/24 22:45 Taken KNEE (1 OR 2 VIEW) Stat Exams 05/20/24 22:45 Taken Medication Summary Discontinued Medications Generic Name Dose Route Start Last Admin Trade Name Freq PRN Reason Stop Dose Admin Oxycodone/Acetaminophen 1 tab 05/20/24 22:34 05/20/24 22:40 Oxycodone Hcl/Apap 5 Mg/325 Mg Tablet PO 05/20/24 22:35 1 tab STAT STA Administration Oxycodone/Acetaminophen Confirm 05/20/24 22:39 Oxycodone Hcl/Apap 5 Mg/325 Mg Tablet Administered 05/20/24 22:40 Dose 1 tab .ROUTE .STK-MED ONE - Progress Progress: improved, pain not gone completely Progress Note: 05/20/24 22:40 My medical decision making and the assignment of low complexity to this patient's medical issue today is based on review of the patient's past medical history, review the patient's medication list, reviewed patient drug allergy list, history present illness and physical findings on examination. The workup in this patient includes x-ray of bilateral knees. She did not want any other areas of her body x-ray. Differential diagnosis includes but is not limited to fracture/dislocation bilateral knees 05/20/24 22:49 I interpreted the patient's preliminary report on the following plain film x- rays: 2 view x-ray right knee shows no acute fracture or dislocation. 2 view x-ray left knee shows no acute fracture or dislocation. Counseled pt/family regarding: need for follow-up, rad results Medical Desision Making - Independent Historian Additional History obtained from: Spouse - Diagnostic Testing Diagnostic test were ordered, analyzed, and reviewed by me: Yes Radiological Interpretation: Interpreted by me - Risk of complications Low Risk: Low risk of morbidity from additional dx testing or treatment - Departure Departure Disposition: Home Clinical Impression: Knee sprain, bilateral Condition: Stable Critical Care Time: No Referrals: DOCTOR,NO FAMILY [Primary Care Provider] - Follow up/PCP as directed Additional Instructions: Ice pack to both knees 3-4 times a day for the next 2 to 3 days. Take your take-home medicine as prescribed. After these tablets have been taken, use Tylenol and ibuprofen every 4-6 hours while awake for pain control. Call your primary care provider tomorrow, 05/21/2024, to make arrangements for follow-up appointment and to be seen in the next 3 to 5 days.
[2024-05-20] MEDS ORDERED: PERCOCET TABLET 5/325MG ONE ×2 (22:39→22:56)
[2024-05-20] MEDS: PERCOCET TABLET 5/325MG PO STA ×2 (22:40→23:01)
[2024-05-20 23:04] VITALS: BP 153/89; PULSE 79; RESP 18; O2SAT 98
--- NOTE | 2024-05-21 09:02 | XRAY ---
Indication: Pain following fall. Comparison: None AP/lateral left knee demonstrates minimal medial joint space narrowing/spurring. No other bony, articular, or soft tissue abnormalities.
--- NOTE | 2024-05-21 09:02 | XRAY ---
Indication: Pain following fall. Comparison: None AP/lateral right knee demonstrates small spurring tibial tuberosity. No other bony, articular, or soft tissue abnormalities.
== END 2024-05-20 23:17 | disposition home or self-care (01) ==
LOC: ED 21:52
DX: S83.92XA Sprain of unspecified site of left knee, initial encounter (principal); S83.91XA Sprain of unspecified site of right knee, initial encounter; W01.0XXA Fall on same level from slipping, tripping and stumbling without subsequent striking against object, initial encounter; Y93.54 Activity, bowling; Y92.39 Other specified sports and athletic area as the place of occurrence of the external cause; I10 Essential (primary) hypertension; Z79.899 Other long term (current) drug therapy
CPT/HCPCS: 73560; 99283; A9270-GY

== ENCOUNTER 2024-07-07 17:54 | Emergency (ER) | payer OTHER ==
[2024-07-07] MEDS ORDERED: XYLOCAINE 1% HCL 20 ML MDV IJ ONE (17:55)
--- NOTE | 2024-07-07 17:57 | ERPHSYRPT ---
- History of Present Illness Source: patient Exam Limitations: no limitations Timing/Duration: day(s) (3), worse Cough Quality/Degree: mild, dry cough Possible Cause: no prior episodes Modifying Factors: Improves With: coughing Associated Symptoms: chills, cough, headache, muscle aches, nasal congestion, sore throat, No chest pain/soreness, No shortness of breath, No wheezing Hx Tetanus, Diphtheria Vaccination/Date Given: Yes Hx Influenza Vaccination/Date Given: No Hx Pneumococcal Vaccination/Date Given: No - History of Present Illness Time Seen by Provider: 07/07/24 17:57 Physician History: This is an overweight white female patient of nurse practitioner Lisette and arrives by private vehicle accompanied by her spouse. Patient has had 3 days symptom of sore throat, mild dry cough, nasal congestion and 2 days of intermittent diarrhea. She has not measured a fever but she states that last evening she had shaking chills. She has no urinary tract infection symptoms. This morning, she is feeling worse and has associated body aches. Patient has a history of hypertension, depression, gastroesophageal reflux disease and chronic migraine headaches. She has no neck pain. She denies shortness of breath. She does not have chest pain (SALEEMRAHEL.) Allergies/Adverse Reactions: latex Allergy (Mild, Verified 07/07/24 18:06) Rash tape Allergy (Mild, Uncoded 05/20/24 21:58) Rash Home Medications: Metoprolol Succinate 100 mg [Toprol Xl 100 MG] 100 mg PO HS 10/04/23 [History] Amlodipine Besylate 5 mg PO DAILY 10/18/23 [History] Duloxetine HCl 30 mg [Cymbalta 30 MG Capsule] 30 mg PO DAILY 10/18/23 [History] lisinopriL [Lisinopril] 40 mg PO DAILY 03/31/24 [History] Travel Risk - Emerging Infectious Disease Are you exhibiting symptoms associated with any current EIDs: Yes Symptoms: Cough: New Onset, Diarrhea, Headaches/Body Aches/ - Review of Systems Constitutional: Chills Eyes: No Symptoms Ears, Nose, & Throat: Nose Congestion, Throat Pain Respiratory: Cough Cardiac: No Symptoms Abdominal/Gastrointestinal: No Symptoms Genitourinary Symptoms: No Symptoms Musculoskeletal: Arthralgias, Myalgias Skin: No Symptoms Neurological: No Symptoms Psychological: No Symptoms Endocrine: No Symptoms Hematologic/Lymphatic: No Symptoms Immunological/Allergic: No Symptoms All Other Systems: Reviewed and Negative - Past Medical History Pertinent Past Medical History: Yes Neurological History: Migraines, Other ENT History: No Pertinent History Cardiac History: Hypertension Respiratory History: No Pertinent History Endocrine Medical History: Hypoglycemia Musculoskeletal History: No Pertinent History GI Medical History: GERD, Gallbladder Disease History: No Pertinent History Psycho-Social History: No Pertinent History Female Reproductive Disorders: No Pertinent History Other Medical History: NUMBNESS IN ANTERIOR R KNEE, L KNEE PAIN, DEGENERATIVE CHANGES. - Past Surgical History Past Surgical History: Yes Neuro Surgical History: No Pertinent History Cardiac: No Pertinent History Respiratory: No Pertinent History Gastrointestinal: Cholecystectomy Genitourinary: No Pertinent History Musculoskeletal: Orthopedic Surgery Female Surgical History: Tubal Ligation, Other Other Surgical History: CYST REMOVED FROM LEFT WRIST, colonoscopy Significant Family History: no pertinent family hx - Social History Smoking Status: Former smoker Exposure to second hand smoke: No Drug Use: none Patient Lives Alone: No - Social Determinants of Health Will the patient participate in the screening: Yes Do you worry about a steady place to live?: No In the past 12 months,have you had to go without utilities?: No Transportation Issues: No Has anyone in your support network made you feel unsafe?: No Have you or anyone in your house had to go without enough: No - Physical Exam General Appearance: no apparent distress, alert, anxiety, obese Eye Exam: PERRL/EOMI, eyes nml inspection Ears, Nose, Throat Exam: moist mucous membranes, pharyngeal erythema Neck Exam: normal inspection, non-tender, supple, full range of motion Respiratory Exam: normal breath sounds, lungs clear, airway intact, No chest tenderness, No respiratory distress Cardiovascular Exam: tachycardia Gastrointestinal/Abdomen Exam: soft, normal bowel sounds, No tenderness Pelvic Exam: not done Rectal Exam: not done Back Exam: normal inspection, normal range of motion, No CVA tenderness, No vertebral tenderness Extremity Exam: normal inspection, normal range of motion, pelvis stable Neurologic Exam: alert, oriented x 3, 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, 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, nml cerebellar function, nml station & gait, sensation nml Skin Exam: normal color, warm, dry Lymphatic Exam: No adenopathy SpO2 Interpretation: normal O2 Delivery: Room Air - Nursing Vital Signs Nursing Vital Signs: Initial Vital Signs Temperature 97.4 F 07/07/24 17:59 Pulse Rate 107 H 07/07/24 17:59 Respiratory Rate 20 07/07/24 17:59 Blood Pressure 214/116 07/07/24 17:59 O2 Sat by Pulse Oximetry 98 07/07/24 17:59 Pain Scale Pain Intensity 8 - Course Nursing assessment & vital signs reviewed: Yes Ordered Tests: Active Orders 24 hr Category Date Time Status IV Insertion STAT Care 07/07/24 22:43 Active CHEST 1 VIEW (PORTABLE) Stat Exams 07/07/24 18:43 Taken CBC W DIFF Stat Lab 07/07/24 23:04 Completed CMP Stat Lab 07/07/24 23:04 Completed TROPONIN Q4H Lab 07/07/24 23:04 Completed TROPONIN Q4H Lab 07/08/24 02:45 Ordered TROPONIN Q4H Lab 07/08/24 06:45 Ordered Medication Summary Discontinued Medications Generic Name Dose Route Start Last Admin Trade Name Freq PRN Reason Stop Dose Admin Hydrocodone Bitart/Acetaminophen 15 ml 07/07/24 18:28 07/07/24 18:39 Hydrocodone/Acetaminophen 5 Ml Udcup PO 07/07/24 18:29 15 ml STAT STA Administration Hydrocodone Bitart/Acetaminophen Confirm 07/07/24 18:35 Hydrocodone/Acetaminophen 5 Ml Udcup Administered 07/07/24 18:36 Dose 15 ml .ROUTE .STK-MED ONE Ceftriaxone Sodium 1,000 mg 07/07/24 19:56 07/07/24 20:01 Ceftriaxone Sodium 1000 Mg Inj Vial IM 07/07/24 19:57 1,000 mg STAT ONE Administration Ceftriaxone Sodium Confirm 07/07/24 19:58 Ceftriaxone Sodium 1000 Mg Inj Vial Administered 07/07/24 19:59 Dose 1,000 mg .ROUTE .STK-MED ONE Diphenhydramine HCl 25 mg 07/07/24 22:44 07/07/24 23:03 Diphenhydramine Hcl 50 Mg/Ml Vial IV 07/07/24 22:45 25 mg STAT ONE Administration Diphenhydramine HCl Confirm 07/07/24 23:02 Diphenhydramine Hcl 50 Mg/Ml Vial Administered 07/07/24 23:03 Dose 50 mg .ROUTE .STK-MED ONE Ketorolac Tromethamine 30 mg 07/07/24 22:44 07/07/24 23:02 Ketorolac Tromethamine 30 Mg/Ml Inj IV 07/07/24 22:45 30 mg STAT ONE Administration Ketorolac Tromethamine Confirm 07/07/24 23:01 Ketorolac Tromethamine 30 Mg/Ml Inj Administered 07/07/24 23:02 Dose 30 mg .ROUTE .STK-MED ONE Metoprolol Succinate 100 mg 07/07/24 20:31 07/07/24 20:32 Metoprolol Succinate 25 Mg Xl Tab PO 07/07/24 20:32 100 mg STAT ONE Administration Metoprolol Succinate Confirm 07/07/24 20:32 Metoprolol Succinate 25 Mg Xl Tab Administered 07/07/24 20:33 Dose 100 mg .ROUTE .STK-MED ONE Prednisone 20 mg 07/07/24 18:32 07/07/24 18:38 Prednisone 20 Mg Tablet PO 07/07/24 18:33 20 mg STAT ONE Administration Prednisone Confirm 07/07/24 18:35 Prednisone 20 Mg Tablet Administered 07/07/24 18:36 Dose 20 mg .ROUTE .STK-MED ONE Prochlorperazine Edisylate 10 mg 07/07/24 22:44 07/07/24 23:03 Prochlorperazine Edisylate 10 Mg/2 Ml Vial IV 07/07/24 22:45 10 mg STAT ONE Administration Prochlorperazine Edisylate Confirm 07/07/24 23:02 Prochlorperazine Edisylate 10 Mg/2 Ml Vial Administered 07/07/24 23:03 Dose 10 mg .ROUTE .STK-MED ONE Lab/Rad Data: Laboratory Result Diagrams 07/07/24 23:04 07/07/24 23:04 Laboratory Results 07/07/24 07/07/24 07/07/24 Range/Units 23:04 23:04 23:04 WBC 10.8 H (3.98-10.04) x10^3/uL RBC 4.40 (3.93-5.22) x10^6/uL Hgb 13.4 (11.2-15.7) g/dL Hct 40.3 (34.1-44.9) % MCV 91.6 (79.4-94.8) fL MCH 30.5 (25.6-32.2) pg MCHC 33.3 (32.2-35.5) g/dL RDW 13.4 (11.7-14.4) % Plt Count 384 H (182-369) x10^3/uL MPV 10.3 (9.4-12.3) fL Gran % 81.7 H (34.0-71.1) % Immature Gran % (Auto) 0.4 (0.001-0.429) % Nucleat RBC Rel Count 0.0 (0.00-0.2) % Eos # (Auto) 0.05 (0.04-0.36) x10^3/uL Immature Gran # (Auto) 0.04 H (0.001-0.031) x10^3u/L Absolute Lymphs (auto) 1.50 (1.18-3.74) x10^3/uL Absolute Monos (auto) 0.31 (0.24-0.86) x10^3/uL Absolute Nucleated RBC 0.00 (0.00-0.012) x10^3u/L Lymphocytes % 13.9 L (19.3-51.7) % Monocytes % 2.9 L (4.7-12.5) % Eosinophils % 0.5 L (0.7-5.8) % Basophils % 0.6 (0.1-1.2) % Absolute Granulocytes 8.82 H (1.56-6.13) x10^3/uL Basophils # 0.06 (0.01-0.08) x10^3/uL Sodium 138 (135-145) mmol/L Potassium 4.4 (3.5-5.1) mmol/L Chloride 106 (98-107) mmol/L Carbon Dioxide 25 (22-30) mmol/L Anion Gap 11.4 (5-15) MEQ/L BUN 19 H (7-17) mg/dL Creatinine 0.87 (0.52-1.04) mg/dL Estimated GFR 76.7 ML/MIN Glucose 130 H (74-106) mg/dL Calcium 9.6 (8.4-10.2) mg/dL Total Bilirubin 0.70 (0.2-1.3) mg/dL AST 39 H (14-36) U/L ALT 27 (0-35) U/L Alkaline Phosphatase 97 (38-126) U/L Troponin I < 0.012 (0.000-0.033) ng/mL Serum Total Protein 8.1 (6.3-8.2) g/dL Albumin 4.5 (3.5-5.0) g/dL Influenza Type A Ag (NEGATIVE) Influenza Type B Ag (NEGATIVE) RSV (PCR) (NEGATIVE) SARS-CoV-2 (PCR) (NEGATIVE) Group A Strep Antibody (NEGATIVE) 07/07/24 07/07/24 Range/Units 18:35 18:35 WBC (3.98-10.04) x10^3/uL RBC (3.93-5.22) x10^6/uL Hgb (11.2-15.7) g/dL Hct (34.1-44.9) % MCV (79.4-94.8) fL MCH (25.6-32.2) pg MCHC (32.2-35.5) g/dL RDW (11.7-14.4) % Plt Count (182-369) x10^3/uL MPV (9.4-12.3) fL Gran % (34.0-71.1) % Immature Gran % (Auto) (0.001-0.429) % Nucleat RBC Rel Count (0.00-0.2) % Eos # (Auto) (0.04-0.36) x10^3/uL Immature Gran # (Auto) (0.001-0.031) x10^3u/L Absolute Lymphs (auto) (1.18-3.74) x10^3/uL Absolute Monos (auto) (0.24-0.86) x10^3/uL Absolute Nucleated RBC (0.00-0.012) x10^3u/L Lymphocytes % (19.3-51.7) % Monocytes % (4.7-12.5) % Eosinophils % (0.7-5.8) % Basophils % (0.1-1.2) % Absolute Granulocytes (1.56-6.13) x10^3/uL Basophils # (0.01-0.08) x10^3/uL Sodium (135-145) mmol/L Potassium (3.5-5.1) mmol/L Chloride (98-107) mmol/L Carbon Dioxide (22-30) mmol/L Anion Gap (5-15) MEQ/L BUN (7-17) mg/dL Creatinine (0.52-1.04) mg/dL Estimated GFR ML/MIN Glucose (74-106) mg/dL Calcium (8.4-10.2) mg/dL Total Bilirubin (0.2-1.3) mg/dL AST (14-36) U/L ALT (0-35) U/L Alkaline Phosphatase (38-126) U/L Troponin I (0.000-0.033) ng/mL Serum Total Protein (6.3-8.2) g/dL Albumin (3.5-5.0) g/dL Influenza Type A Ag NEGATIVE (NEGATIVE) Influenza Type B Ag NEGATIVE (NEGATIVE) RSV (PCR) NEGATIVE (NEGATIVE) SARS-CoV-2 (PCR) NEGATIVE (NEGATIVE) Group A Strep Antibody NOT DETECTED (NEGATIVE) - Progress Progress: improved, re-examined Air Movement: good Blood Culture(s) Obtained: No - Progress Progress Note: 07/07/24 18:39 My medical decision making and the assignment of low complexity to this patient's medical issue today is based on review of the patient's past medical history, review of patient's medication list, review patient drug allergy list, history present illness and physical findings on examination. The workup in this patient includes group A strep test and viral studies. We will also provide the patient with a dose of prednisone and a dose of hydrocodone/acetaminophen elixir. Differential diagnosis includes but is not limited to viral illness, pharyngitis, viral/bacterial bronchitis 07/07/24 18:42 I am transferring care of this patient to Dr. Jake Taylor at shift change. He will follow-up on pending studies and make final disposition. (RAHEL SALEEM) 59-year-old female endorsed to Dr. Jake Taylor at approximately 7 PM. COVID RSV influenza negative. Rapid strep negative as well. Chest x-ray reveals what appears to be right lower lobe infiltrate versus atelectasis. In light of patient's symptomology chills and subjective fever as well as physical exam which indicates diminished breath sounds in the right base patient treated for possible pneumonia. Patient received 1 g Rocephin IM. A prescription for Augmentin and azithromycin forwarded to patient's pharmacy. Patient received pr ednisone in our ED per Dr. Saleem. This appeared to help her sore throat. A prescription for prednisone 40 mg daily x 3 days forwarded to patient's pharmacy as well. Patient reassessed. Blood pressure observed to be elevated. Patient due for 100 mg metoprolol this evening. She does not have her medication with her we will dose this medication prior to her discharge as her elevated blood pressure discharge per criteria We will reassess patient's blood pressure to ensure downtrending prior to discharge 07/07/24 20:28 07/07/24 20:28 Discharge delayed secondary to blood pressure. Patient complained of a headache. We treated patient's headache. Headache resolved blood pressure significantly improved to 190/94. Patient neurologically asymptomatic. Patient advised to follow-up with primary care doctor tomorrow to establish a follow-up appointment for assessment of her pneumonia and blood pressure. Patient otherwise feels well. Patient that she is ready for discharge at bedside. They voiced no other complaints or concerns at this time. Portions of this note were created with voice recognition technology. There may be grammatical, spelling, punctuation or sound alike errors 07/07/24 23:27 (JAKE TAYLOR) Medical Desision Making - Independent Historian Additional History obtained from: Spouse - Departure Departure Disposition: Home Critical Care Time: No - Departure Clinical Impression: Cough, Sore throat, Pneumonia Condition: Stable Referrals: BHARATI BOOTHE, ADVERTISING ACCOUNT EXECUTIVE [Primary Care Provider] - Follow up/PCP as directed Instructions: Cough, Adult ED, Pneumonia, Adult ED, Sore Throat, Adult ED Additional Instructions: Discharge/Care Plan EMANUELASUNCION ANA was seen on 07/07/24 in the Emergency Room. The patient was counseled regarding Diagnosis,Lab results, Imaging studies, need for follow up and when to return to the Emergency Room. Prescriptions given: Discharge Note I have spoken with the patient and/or caregivers. I have explained the patient's condition, diagnosis and treatment plan based on the information available to me at this time. I have answered the patient's and/or caregiver's questions and addressed any concerns. The patient and/or caregivers have as good understanding of the patient's diagnosis, condition and treatment plan as can be expected at this point. The vital signs have been stable. The patient's condition is stable and appropriate for discharge from the emergency department. The patient will pursue further outpatient evaluation with the primary care physician or other designated or consulting physician as outlined in the discharge instructions. The patient and/or caregivers are agreeable to this plan of care and follow-up instructions have been explained in detail. The patient and/or caregivers have received these instruction. The patient/and or caregivers are aware that any significant change in condition or worsening of symptoms should prompt an immediate return to this or the closest emergency department or call 911. Forms: Work/School Release Form Prescriptions: Amox Tr/Potass Clav. 875 mg [Augmentin 875-125 Tablet] 875 mg PO BID 7 Days #14 tablet Prednisone 10 mg [Deltasone 10 mg] 40 mg PO DAILY 3 Days #12 tablet Azithromycin 250 mg [Zithromax 250 MG TABLET] 250 mg PO ZPACK #6 tablet
[2024-07-07 18:06] VITALS: TEMP 97.4
[2024-07-07] MEDS ORDERED: HYDROCODONE-ACETAMIN 2.5-108/5 ML SOLUTION ONE (18:35)
[2024-07-07] MEDS ORDERED: DELTASONE 20 MG ONE (18:35)
[2024-07-07] MEDS: DELTASONE 20 MG PO ONE (18:38)
[2024-07-07] MEDS: HYDROCODONE-ACETAMIN 2.5-108/5 ML SOLUTION PO STA (18:39)
[2024-07-07 19:17] LABS: INFLUENZA A NEGATIVE (NEGATIVE); INFLUENZA B NEGATIVE (NEGATIVE); RESPIRATORY SYNCTIAL VIRUS NEGATIVE (NEGATIVE); SARS-CoV-2 Xpert Express NEGATIVE (NEGATIVE)
[2024-07-07] MEDS ORDERED: Rocephin 1000 MG INJ ONE (19:58)
[2024-07-07] MEDS: Rocephin 1000 MG INJ IM ONE (20:01)
[2024-07-07] MEDS: Toprol-Xl 25MG Tablets PO ONE (20:32)
[2024-07-07] MEDS ORDERED: Toprol-Xl 25MG Tablets ONE (20:32)
[2024-07-07 21:35] VITALS: RESP 20
[2024-07-07] MEDS ORDERED: TORAdol 30 mg Injection ONE (23:01)
[2024-07-07] MEDS: TORAdol 30 mg Injection IV ONE (23:02)
[2024-07-07] MEDS ORDERED: Compazine 10 MG/2 ML ONE (23:02)
[2024-07-07] MEDS ORDERED: BENADRYL 50 MG/ML ONE (23:02)
[2024-07-07] MEDS: BENADRYL 50 MG/ML IV ONE (23:03)
[2024-07-07] MEDS: Compazine 10 MG/2 ML IV ONE (23:03)
[2024-07-07 23:05] LABS: Absolute Neutrophil Ct (ANC) 8.82 x10^3/uL (1.56-6.13); BASOPHIL % 0.6 % (0.1-1.2); Basophil (Absolute #) 0.06 x10^3/uL (0.01-0.08); Eosinophil % 0.5 % (0.7-5.8); Eosinophil (Absolute #) 0.05 x10^3/uL (0.04-0.36); Hematocrit 40.3 % (34.1-44.9); Hemoglobin 13.4 g/dL (11.2-15.7); IMMATURE GRAN # 0.04 x10^3u/L (0.001-0.031); IMMATURE GRAN % 0.4 % (0.001-0.429); Lymphocytes % 13.9 % (19.3-51.7); Mean Cell Volume 91.6 fL (79.4-94.8); Mean Corpuscular Hemoglobin 30.5 pg (25.6-32.2); Mean Corpuscular Hgb Concent. 33.3 g/dL (32.2-35.5); Mean Platelet Volume 10.3 fL (9.4-12.3); Monocyte (Absolute #) 0.31 x10^3/uL (0.24-0.86); Monocytes % 2.9 % (4.7-12.5); Neutrophil % 81.7 % (34.0-71.1); Platelet Count 384 x10^3/uL (182-369); Red Cell Distribution Width 13.4 % (11.7-14.4); White Blood Count 10.8 x10^3/uL (3.98-10.04)
[2024-07-07 23:20] LABS: ALBUMIN 4.5 g/dL (3.5-5.0); ANION GAP 11.4 MEQ/L (5-15); BILIRUBIN,TOTAL 0.7 mg/dL (0.2-1.3); Calcium 9.6 mg/dL (8.4-10.2); Creatinine 1 0.87 mg/dL (0.52-1.04); EST GLOMERULAR FILTRATION RATE 76.7 ML/MIN; Potassium 4.4 mmol/L (3.5-5.1); Total Protein 8.1 g/dL (6.3-8.2)
[2024-07-07 23:28] VITALS: BP 193/94; PULSE 66; O2SAT 94
--- NOTE | 2024-07-08 08:35 | XRAY ---
Indication: Cough. Comparison: March 31, 2024 Portable chest is inflated and clear. Heart not enlarged. Bony thorax intact again with mild degenerative changes. No new/acute findings.
== END 2024-07-07 23:42 | disposition home or self-care (01) ==
LOC: ED 17:54
DX: J02.9 Acute pharyngitis, unspecified (principal); R51.9 Headache, unspecified; J18.9 Pneumonia, unspecified organism; R05.9 Cough, unspecified
CPT/HCPCS: 0241U; 36415; 71045; 80053; 84484; 85025; 87651; 96372; 96374; 96375; 99284; J0696; J1200; J1885; A9270-GY

== ENCOUNTER 2024-07-12 21:56 | Emergency (ER) | payer OTHER ==
--- NOTE | 2024-07-12 21:59 | ERPHSYRPT ---
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 Patient was seen in our emergency department on 07/07/2024 and diagnosed with cough, sore throat and pneumonia. Patient was given outpatient prescriptions for antibiotics, steroids and instructions to follow-up with her primary care provider. Patient is unable to see her primary care provider until later this week. Patient has persistent sore throat and shortness of breath and today was having shaking chills. She could not complete her day at work. Marline ent arrives to the emergency department accompanied by her spouse. She appears anxious her systolic blood pressure is 192. Her room air oxygen saturation level is 99% and her heart rate is 70. Patient has a history of hypertension on multiple medications, depression, gastroesophageal reflux disease and chronic migraine headaches. Timing/Duration: week(s) (1) Cough Quality/Degree: mild, dry cough Possible Cause: occasional episodes Modifying Factors: Improves With: nothing Associated Symptoms: cough, shortness of breath, sore throat Allergies/Adverse Reactions: latex Allergy (Mild, Verified 07/13/24 00:38) Rash tape Allergy (Mild, Uncoded 07/13/24 00:38) Rash Home Medications: Metoprolol Succinate 100 mg [Toprol Xl 100 MG] 100 mg PO HS 10/04/23 [History] Amlodipine Besylate 5 mg PO DAILY 10/18/23 [History] Duloxetine HCl 30 mg [Cymbalta 30 MG Capsule] 30 mg PO DAILY 10/18/23 [History] lisinopriL [Lisinopril] 40 mg PO DAILY 03/31/24 [History] Hx Tetanus, Diphtheria Vaccination/Date Given: Yes Hx Influenza Vaccination/Date Given: No Hx Pneumococcal Vaccination/Date Given: No Travel Risk - International Travel Have you traveled outside of the country in past 3 weeks: No - Emerging Infectious Disease Are you exhibiting symptoms associated with any current EIDs: Yes Symptoms: Cough: New Onset, Diarrhea, Headaches/Body Aches/ - Review of Systems Constitutional: No Symptoms Eyes: No Symptoms Ears, Nose, & Throat: Throat Pain Respiratory: Cough, Dyspnea Cardiac: No Symptoms Abdominal/Gastrointestinal: No Symptoms Genitourinary Symptoms: No Symptoms Musculoskeletal: No Symptoms Skin: No Symptoms Neurological: No Symptoms Psychological: No Symptoms Endocrine: No Symptoms Hematologic/Lymphatic: No Symptoms Immunological/Allergic: No Symptoms All Other Systems: Reviewed and Negative - Past Medical History Pertinent Past Medical History: Yes Neurological History: Migraines, Other ENT History: No Pertinent History Cardiac History: Hypertension Respiratory History: No Pertinent History Endocrine Medical History: Hypoglycemia Musculoskeletal History: No Pertinent History GI Medical History: GERD, Gallbladder Disease History: No Pertinent History Psycho-Social History: No Pertinent History Female Reproductive Disorders: No Pertinent History Other Medical History: NUMBNESS IN ANTERIOR R KNEE, L KNEE PAIN, DEGENERATIVE CHANGES. - Past Surgical History Past Surgical History: Yes Neuro Surgical History: No Pertinent History Cardiac: No Pertinent History Respiratory: No Pertinent History Gastrointestinal: Cholecystectomy Genitourinary: No Pertinent History Musculoskeletal: Orthopedic Surgery Female Surgical History: Tubal Ligation, Other Other Surgical History: CYST REMOVED FROM LEFT WRIST, colonoscopy Significant Family History: no pertinent family hx - Social History Smoking Status: Former smoker Exposure to second hand smoke: No Drug Use: none Patient Lives Alone: No - Social Determinants of Health Will the patient participate in the screening: Yes Do you worry about a steady place to live?: No In the past 12 months,have you had to go without utilities?: No Transportation Issues: No Has anyone in your support network made you feel unsafe?: No Have you or anyone in your house had to go without enough: No - Nursing Vital Signs Nursing Vital Signs: Initial Vital Signs Temperature 97.6 F 07/12/24 22:12 Pulse Rate 73 07/12/24 22:12 Respiratory Rate 19 07/12/24 22:12 Blood Pressure 192/85 07/12/24 22:12 O2 Sat by Pulse Oximetry 100 07/12/24 22:12 Pain Scale Pain Intensity 10 - Physical Exam General Appearance: mild distress, alert, anxiety, obese Eye Exam: PERRL/EOMI, eyes nml inspection Ears, Nose, Throat Exam: moist mucous membranes, pharyngeal erythema Neck Exam: normal inspection, non-tender, supple, full range of motion Respiratory Exam: normal breath sounds, lungs clear, airway intact, No chest tenderness, No respiratory distress Cardiovascular Exam: regular rate/rhythm, normal heart sounds, normal peripheral pulses Gastrointestinal/Abdomen Exam: soft, normal bowel sounds, No tenderness Pelvic Exam: not done Rectal Exam: not done Back Exam: normal inspection, normal range of motion, No CVA tenderness, No vertebral tenderness Extremity Exam: normal inspection, normal range of motion, pelvis stable Neurologic Exam: alert, oriented x 3, cooperative, 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 QTc 453) Ordered Tests: Active Orders 24 hr Category Date Time Status Manager Immunology STAT Care 07/12/24 22:47 Active EKG-ER Only STAT Care 07/12/24 22:46 Active IV Insertion STAT Care 07/12/24 22:46 Active Pulse Oximetry (ED) STAT Care 07/12/24 22:46 Active CHEST WITH CONTRAST [CT] Stat Exams 07/12/24 22:47 Completed BLOOD CULTURE Stat Lab 07/12/24 23:10 Received CBC W DIFF Stat Lab 07/12/24 23:00 Completed CMP Stat Lab 07/12/24 23:00 Completed D-DIMER QUANTITATIVE Stat Lab 07/12/24 23:00 Completed Lactic Acid Stat Lab 07/12/24 22:46 Completed MAGNESIUM Stat Lab 07/12/24 23:00 Completed MONO SCREEN Stat Lab 07/12/24 23:00 Completed NT PRO BNPII Stat Lab 07/12/24 23:00 Completed TROPONIN Q4H Lab 07/12/24 23:00 Completed TROPONIN Q4H Lab 07/13/24 03:00 Ordered TROPONIN Q4H Lab 07/13/24 07:00 Ordered UA W/RFX UR CULTURE Stat Lab 07/12/24 23:05 Completed Respiratory Therapy Consult ONCE RT 07/12/24 23:00 Completed Medication Summary Generic Name Dose Route Start Last Admin Trade Name Freq PRN Reason Stop Dose Admin Sodium Chloride 1,000 mls @ 100 mls/hr 07/12/24 23:00 07/12/24 22:57 Sodium Chloride 0.9% 1000 Ml IV 08/11/24 22:59 100 mls/hr .Q10H MATT Administration Lab/Rad Data: Laboratory Result Diagrams 07/12/24 23:00 07/12/24 23:00 Laboratory Results 07/12/24 07/12/24 07/12/24 Range/Units 23:10 23:05 23:00 WBC (3.98-10.04) x10^3/uL RBC (3.93-5.22) x10^6/uL Hgb (11.2-15.7) g/dL Hct (34.1-44.9) % MCV (79.4-94.8) fL MCH (25.6-32.2) pg MCHC (32.2-35.5) g/dL RDW (11.7-14.4) % Plt Count (182-369) x10^3/uL MPV (9.4-12.3) fL Gran % (34.0-71.1) % Immature Gran % (Auto) (0.001-0.429) % Nucleat RBC Rel Count (0.00-0.2) % Eos # (Auto) (0.04-0.36) x10^3/uL Immature Gran # (Auto) (0.001-0.031) x10^3u/L Absolute Lymphs (auto) (1.18-3.74) x10^3/uL Absolute Monos (auto) (0.24-0.86) x10^3/uL Absolute Nucleated RBC (0.00-0.012) x10^3u/L Lymphocytes % (19.3-51.7) % Monocytes % (4.7-12.5) % Eosinophils % (0.7-5.8) % Basophils % (0.1-1.2) % Absolute Granulocytes (1.56-6.13) x10^3/uL Basophils # (0.01-0.08) x10^3/uL D-Dimer (0.0-0.50) mg/L Sodium (135-145) mmol/L Potassium (3.5-5.1) mmol/L Chloride (98-107) mmol/L Carbon Dioxide (22-30) mmol/L Anion Gap (5-15) MEQ/L BUN (7-17) mg/dL Creatinine (0.52-1.04) mg/dL Estimated GFR ML/MIN Glucose (74-106) mg/dL Lactic Acid (0.4-2.0) Calcium (8.4-10.2) mg/dL Magnesium (1.6-2.3) mg/dL Total Bilirubin (0.2-1.3) mg/dL AST (14-36) U/L ALT (0-35) U/L Alkaline Phosphatase (38-126) U/L Troponin I (0.000-0.033) ng/mL NT-Pro-B Natriuret Pep (<300) pg/mL Serum Total Protein (6.3-8.2) g/dL Albumin (3.5-5.0) g/dL Urine Color Yellow (Yellow) Urine Appearance Clear (Clear) Urine pH 5.5 (4.6-8.0) Ur Specific [place] 1.020 (1.005-1.030) Urine Protein Negative (Negative) Urine Glucose (UA) Negative (Negative) mg/dL Urine Ketones Negative (Negative) Urine Blood Negative (Negative) Urine Nitrite Negative (Negative) Urine Bilirubin Negative (Negative) Urine Urobilinogen 0.2 (0.2) mg/dL Ur Leukocyte Esterase Small A (Negative) U Hyaline Cast (Auto) NONE SEEN (0-2) /LPF Urine Microscopic RBC 0-2 (0-5) /HPF Urine Microscopic WBC 3-5 (0-5) /HPF Ur Epithelial Cells Few (None Seen) /HPF Urine Bacteria None Seen (None Seen) /HPF Urine Culture Reflexed NO (NO) Monoscreen NEGATIVE (NEGATIVE) Influenza Type A Ag NEGATIVE (NEGATIVE) Influenza Type B Ag NEGATIVE (NEGATIVE) RSV (PCR) NEGATIVE (NEGATIVE) SARS-CoV-2 (PCR) NEGATIVE (NEGATIVE) 07/12/24 07/12/24 07/12/24 Range/Units 23:00 23:00 23:00 WBC (3.98-10.04) x10^3/uL RBC (3.93-5.22) x10^6/uL Hgb (11.2-15.7) g/dL Hct (34.1-44.9) % MCV (79.4-94.8) fL MCH (25.6-32.2) pg MCHC (32.2-35.5) g/dL RDW (11.7-14.4) % Plt Count (182-369) x10^3/uL MPV (9.4-12.3) fL Gran % (34.0-71.1) % Immature Gran % (Auto) (0.001-0.429) % Nucleat RBC Rel Count (0.00-0.2) % Eos # (Auto) (0.04-0.36) x10^3/uL Immature Gran # (Auto) (0.001-0.031) x10^3u/L Absolute Lymphs (auto) (1.18-3.74) x10^3/uL Absolute Monos (auto) (0.24-0.86) x10^3/uL Absolute Nucleated RBC (0.00-0.012) x10^3u/L Lymphocytes % (19.3-51.7) % Monocytes % (4.7-12.5) % Eosinophils % (0.7-5.8) % Basophils % (0.1-1.2) % Absolute Granulocytes (1.56-6.13) x10^3/uL Basophils # (0.01-0.08) x10^3/uL D-Dimer 0.21 (0.0-0.50) mg/L Sodium 138 (135-145) mmol/L Potassium 4.1 (3.5-5.1) mmol/L Chloride 105 (98-107) mmol/L Carbon Dioxide 28 (22-30) mmol/L Anion Gap 10.1 (5-15) MEQ/L BUN 26 H (7-17) mg/dL Creatinine 1.17 H (0.52-1.04) mg/dL Estimated GFR 53.8 ML/MIN Glucose 94 (74-106) mg/dL Lactic Acid (0.4-2.0) Calcium 9.7 (8.4-10.2) mg/dL Magnesium 2.0 (1.6-2.3) mg/dL Total Bilirubin 0.60 (0.2-1.3) mg/dL AST 39 H (14-36) U/L ALT 85 H (0-35) U/L Alkaline Phosphatase 92 (38-126) U/L Troponin I < 0.012 (0.000-0.033) ng/mL NT-Pro-B Natriuret Pep 65.0 (<300) pg/mL Serum Total Protein 6.8 (6.3-8.2) g/dL Albumin 4.0 (3.5-5.0) g/dL Urine Color (Yellow) Urine Appearance (Clear) Urine pH (4.6-8.0) Ur Specific [place] (1.005-1.030) Urine Protein (Negative) Urine Glucose (UA) (Negative) mg/dL Urine Ketones (Negative) Urine Blood (Negative) Urine Nitrite (Negative) Urine Bilirubin (Negative) Urine Urobilinogen (0.2) mg/dL Ur Leukocyte Esterase (Negative) U Hyaline Cast (Auto) (0-2) /LPF Urine Microscopic RBC (0-5) /HPF Urine Microscopic WBC (0-5) /HPF Ur Epithelial Cells (None Seen) /HPF Urine Bacteria (None Seen) /HPF Urine Culture Reflexed (NO) Monoscreen (NEGATIVE) Influenza Type A Ag (NEGATIVE) Influenza Type B Ag (NEGATIVE) RSV (PCR) (NEGATIVE) SARS-CoV-2 (PCR) (NEGATIVE) 07/12/24 07/12/24 Range/Units 23:00 22:46 WBC 11.2 H (3.98-10.04) x10^3/uL RBC 4.26 (3.93-5.22) x10^6/uL Hgb 12.9 (11.2-15.7) g/dL Hct 39.7 (34.1-44.9) % MCV 93.2 (79.4-94.8) fL MCH 30.3 (25.6-32.2) pg MCHC 32.5 (32.2-35.5) g/dL RDW 13.6 (11.7-14.4) % Plt Count 355 (182-369) x10^3/uL MPV 10.7 (9.4-12.3) fL Gran % 51.1 (34.0-71.1) % Immature Gran % (Auto) 0.3 (0.001-0.429) % Nucleat RBC Rel Count 0.0 (0.00-0.2) % Eos # (Auto) 0.24 (0.04-0.36) x10^3/uL Immature Gran # (Auto) 0.03 (0.001-0.031) x10^3u/L Absolute Lymphs (auto) 4.17 H (1.18-3.74) x10^3/uL Absolute Monos (auto) 0.95 H (0.24-0.86) x10^3/uL Absolute Nucleated RBC 0.00 (0.00-0.012) x10^3u/L Lymphocytes % 37.1 (19.3-51.7) % Monocytes % 8.5 (4.7-12.5) % Eosinophils % 2.1 (0.7-5.8) % Basophils % 0.9 (0.1-1.2) % Absolute Granulocytes 5.75 (1.56-6.13) x10^3/uL Basophils # 0.10 H (0.01-0.08) x10^3/uL D-Dimer (0.0-0.50) mg/L Sodium (135-145) mmol/L Potassium (3.5-5.1) mmol/L Chloride (98-107) mmol/L Carbon Dioxide (22-30) mmol/L Anion Gap (5-15) MEQ/L BUN (7-17) mg/dL Creatinine (0.52-1.04) mg/dL Estimated GFR ML/MIN Glucose (74-106) mg/dL Lactic Acid 1.0 (0.4-2.0) Calcium (8.4-10.2) mg/dL Magnesium (1.6-2.3) mg/dL Total Bilirubin (0.2-1.3) mg/dL AST (14-36) U/L ALT (0-35) U/L Alkaline Phosphatase (38-126) U/L Troponin I (0.000-0.033) ng/mL NT-Pro-B Natriuret Pep (<300) pg/mL Serum Total Protein (6.3-8.2) g/dL Albumin (3.5-5.0) g/dL Urine Color (Yellow) Urine Appearance (Clear) Urine pH (4.6-8.0) Ur Specific [place] (1.005-1.030) Urine Protein (Negative) Urine Glucose (UA) (Negative) mg/dL Urine Ketones (Negative) Urine Blood (Negative) Urine Nitrite (Negative) Urine Bilirubin (Negative) Urine Urobilinogen (0.2) mg/dL Ur Leukocyte Esterase (Negative) U Hyaline Cast (Auto) (0-2) /LPF Urine Microscopic RBC (0-5) /HPF Urine Microscopic WBC (0-5) /HPF Ur Epithelial Cells (None Seen) /HPF Urine Bacteria (None Seen) /HPF Urine Culture Reflexed (NO) Monoscreen (NEGATIVE) Influenza Type A Ag (NEGATIVE) Influenza Type B Ag (NEGATIVE) RSV (PCR) (NEGATIVE) SARS-CoV-2 (PCR) (NEGATIVE) - Progress Progress: re-examined Air Movement: good Progress Note: 07/12/24 22:55 My medical decision making and the assignment of moderate complexity to this patient's medical issue today is based on review of the patient's past medical history, review the patient's medication list, reviewed patient drug allergy list, history present illness and physical findings on examination. The workup in this patient includes placement of intravenous line, CBC, CMP, lactic acid level, troponin level, BNP, viral swabs, monotest, CT scan of the chest with contrast, blood cultures, infusion of crystalloid solution, urinalysis and twelve-lead EKG. Differential diagnosis includes but is not limited to urinary tract infection, dehydration, pulmonary embolus, pneumonia, arrhythmia, electrolyte ab normalities, viral infection 07/13/24 00:57 I interpreted the patient's laboratory data results. Based on the laboratory data results, the patient does not have any acute emergent medical issue. The CT scan of the chest with contrast was interpreted by the radiologist and I reviewed the impression. The impression states no pulmonary embolus. Groundglass appearance at the bases with air trapping. No other acute, abnormalities present. This patient appears ill. However her appearance does not fit her workup results or the vital signs. The workup and vital signs are normal appearing but the patient feels sleepy and at times shaky. I will have a discussion with the telehospitalist, Dr. Swenson to see if we can observe her overnight with IV hydration and respiratory therapy intervention. Will repeat labs in the morning. I will wait to discuss with him. 07/13/24 01:[address] Vadim Swenson. I reviewed the patient history, presenting complaint, physical findings on examination and workup results. We discussed the plan of care of this patient. We both agree that this patient does not qualify for placing in observation in the hospital setting. I will provide the patient with a regimen of medication to help with her symptom relief. Blood Culture(s) Obtained: Yes Antibiotics given: No Medical Desision Making - Independent Historian Additional History obtained from: Spouse - Diagnostic Testing Radiological Interpretation: Reviewed by me, Teleradiologist Report - Risk of complications The pt has a mod risk of morbidity or mortality based on: Need for prescription drug management - Departure Departure Disposition: Home Clinical Impression: Pharyngitis, Shortness of breath Condition: Stable Critical Care Time: No Referrals: BHARATI BOOTHE NP [Primary Care Provider] - Follow up/PCP as directed Additional Instructions: Drink plenty of fluids. Take your medications as prescribed. Call your primary care provider later today, 07/13/2024, to make arrangements for follow-up appointment and to be seen in the next 5 to 7 days. Return to the emergency department if your symptoms worsen. Forms: Work/School Release Form Prescriptions: Prednisone 10 mg [Deltasone 10 mg] 10 mg PO TID #12 tablet Hydrocodone/Acetaminophen [Hydrocodone-Acetamn 7.5-325/15] 10 ml PO Q8H PRN #120 ml MDD 30 ml PRN Reason: Cough Albuterol 8 gm Mdi Hfa [Ventolin Hfa MDI] 8 gm IH Q4H #1 unit
[2024-07-12 22:28] VITALS: TEMP 97.6
[2024-07-12] MEDS ORDERED: Sodium Chloride 0.9% 1000 ML 1,000 ML ONE (22:56)
[2024-07-12] MEDS: Sodium Chloride 0.9% 1000 ML 1,000 ML IV SCH (22:57)
[2024-07-12 23:18] LABS: Absolute Neutrophil Ct (ANC) 5.75 x10^3/uL (1.56-6.13); BASOPHIL % 0.9 % (0.1-1.2); Eosinophil % 2.1 % (0.7-5.8); Eosinophil (Absolute #) 0.24 x10^3/uL (0.04-0.36); Hematocrit 39.7 % (34.1-44.9); Hemoglobin 12.9 g/dL (11.2-15.7); IMMATURE GRAN # 0.03 x10^3u/L (0.001-0.031); IMMATURE GRAN % 0.3 % (0.001-0.429); Lymphocyte (Absolute #) 4.17 x10^3/uL (1.18-3.74); Lymphocytes % 37.1 % (19.3-51.7); Mean Cell Volume 93.2 fL (79.4-94.8); Mean Corpuscular Hemoglobin 30.3 pg (25.6-32.2); Mean Corpuscular Hgb Concent. 32.5 g/dL (32.2-35.5); Mean Platelet Volume 10.7 fL (9.4-12.3); Monocyte (Absolute #) 0.95 x10^3/uL (0.24-0.86); Monocytes % 8.5 % (4.7-12.5); Neutrophil % 51.1 % (34.0-71.1); Platelet Count 355 x10^3/uL (182-369); Red Blood Count 4.26 x10^6/uL (3.93-5.22); Red Cell Distribution Width 13.6 % (11.7-14.4); White Blood Count 11.2 x10^3/uL (3.98-10.04)
[2024-07-12 23:31] LABS: ANION GAP 10.1 MEQ/L (5-15); BILIRUBIN,TOTAL 0.6 mg/dL (0.2-1.3); Calcium 9.7 mg/dL (8.4-10.2); Creatinine 1 1.17 mg/dL (0.52-1.04); EST GLOMERULAR FILTRATION RATE 53.8 ML/MIN; Potassium 4.1 mmol/L (3.5-5.1); Total Protein 6.8 g/dL (6.3-8.2)
[2024-07-12 23:35] LABS: Appearance Clear (Clear); Bacteria None Seen /HPF (None Seen); Bilirubin Negative (Negative); Blood Negative (Negative); Epithelial Cells Few /HPF (None Seen); Glucose, Urine Negative (Negative); Hyaline Casts NONE SEEN /LPF (0-2); Ketones Negative (Negative); Leukocyte Esterase Small (Negative); Nitrite Negative (Negative); Ph 5.5 (4.6-8.0); Protein,Urine Dip Negative (Negative); RBC 0-2 /HPF (0-5); Urobilinogen 0.2 mg/dL (0.2)
[2024-07-12 23:42] LABS: TROPONIN < 0.012 ng/mL (0.000-0.033)
[2024-07-12 23:57] LABS: INFLUENZA A NEGATIVE (NEGATIVE); INFLUENZA B NEGATIVE (NEGATIVE); RESPIRATORY SYNCTIAL VIRUS NEGATIVE (NEGATIVE); SARS-CoV-2 Xpert Express NEGATIVE (NEGATIVE)
--- NOTE | 2024-07-13 00:49 | XRAY ---
CLINICAL HISTORY: Shortness of breath COMPARISON: None. TECHNIQUE: Contiguous axial images were obtained from the neck base through the upper abdomen following intravenous administration of iodinated contrast material. Angiographic images were processed, 3D MIP images were acquired for interpretation. If IV contrast material had not been administered, the likelihood of detecting abnormalities relevant to the patient's condition would have been substantially decreased. Coronal and sagittal 3-D MIPs were likewise performed and indicated to increase the sensitivity of detecting diffuse clinically relevant pathology. CT scan was performed according to ALARA (as low as reasonable achievable). FINDINGS: Adequate contrast bolus without evidence of pulmonary embolism. Heterogenous lung attenuation with areas of ground glassing and air trapping noted. The central airways are patent. The remaining lungs are clear. No pleural effusion. The heart, aorta, and pulmonary arteries are of normal size and configuration. There are no appreciable coronary artery and aortic atherosclerotic calcifications. No pericardial effusion is identified. Tiny hypodense nodule in left lobe of thyroid. No mediastinal, hilar, or axillary lymphadenopathy is noted. Degenerative changes are noted in the visualized thoracic spine. No suspicious lytic or sclerotic osseous lesions are identified. IMPRESSION: 1. No evidence of pulmonary embolism. 2. Heterogenous lung attenuation with areas of ground glassing and air trapping - smaller airway disease. Electronically Signed by: Jw Dillard MD. (07/13/2024 00:46:10 EST)
[2024-07-13 01:36] VITALS: BP 153/71; PULSE 76; RESP 18; O2SAT 97
== END 2024-07-13 01:51 | disposition home or self-care (01) ==
LOC: ED 21:56
DX: R06.02 Shortness of breath (principal); J02.9 Acute pharyngitis, unspecified
CPT/HCPCS: 0241U; 36415; 71260; 80053; 81001; 83605; 83735; 83880; 84484; 85025; 85379; 86308; 87040; 93005; 94760; 99284

== ENCOUNTER 2024-07-26 16:32 | Emergency (ER) | payer OTHER ==
[2024-07-26 16:43] VITALS: TEMP 97.9
[2024-07-26 17:36] LABS: Absolute Neutrophil Ct (ANC) 4.15 x10^3/uL (1.56-6.13); BASOPHIL % 0.7 % (0.1-1.2); Basophil (Absolute #) 0.05 x10^3/uL (0.01-0.08); Eosinophil % 4.7 % (0.7-5.8); Eosinophil (Absolute #) 0.32 x10^3/uL (0.04-0.36); Hematocrit 38.6 % (34.1-44.9); Hemoglobin 12.6 g/dL (11.2-15.7); IMMATURE GRAN # 0.02 x10^3u/L (0.001-0.031); IMMATURE GRAN % 0.3 % (0.001-0.429); Lymphocyte (Absolute #) 1.52 x10^3/uL (1.18-3.74); Lymphocytes % 22.4 % (19.3-51.7); Mean Cell Volume 95.3 fL (79.4-94.8); Mean Corpuscular Hemoglobin 31.1 pg (25.6-32.2); Mean Corpuscular Hgb Concent. 32.6 g/dL (32.2-35.5); Mean Platelet Volume 10.4 fL (9.4-12.3); Monocyte (Absolute #) 0.73 x10^3/uL (0.24-0.86); Monocytes % 10.8 % (4.7-12.5); Neutrophil % 61.1 % (34.0-71.1); Platelet Count 303 x10^3/uL (182-369); Red Blood Count 4.05 x10^6/uL (3.93-5.22); Red Cell Distribution Width 13.3 % (11.7-14.4); White Blood Count 6.8 x10^3/uL (3.98-10.04)
[2024-07-26 17:49] LABS: ALBUMIN 3.8 g/dL (3.5-5.0); ANION GAP 7.5 MEQ/L (5-15); BILIRUBIN,TOTAL 0.5 mg/dL (0.2-1.3); Calcium 9.3 mg/dL (8.4-10.2); Creatinine 1 1.07 mg/dL (0.52-1.04); EST GLOMERULAR FILTRATION RATE 59.8 ML/MIN; Potassium 4.5 mmol/L (3.5-5.1); Total Protein 6.7 g/dL (6.3-8.2)
[2024-07-26 18:00] LABS: NT PRO BNPII 88.6 pg/mL (<300)
[2024-07-26 18:12] LABS: INFLUENZA A NEGATIVE (NEGATIVE); INFLUENZA B NEGATIVE (NEGATIVE); RESPIRATORY SYNCTIAL VIRUS NEGATIVE (NEGATIVE); SARS-CoV-2 Xpert Express NEGATIVE (NEGATIVE)
[2024-07-26 18:38] VITALS: RESP 19; O2SAT 95
--- NOTE | 2024-07-26 20:18 | ERPHSYRPT ---
- History of Present Illness Time Seen by Provider: 07/26/24 16:50 Source: patient Exam Limitations: no limitations Patient Subjective Stated Complaint: PT states "I have had this cough that will not go away and I am exhausted. All I want to do is sleep." Triage Nursing Assessment: Pt presented alert and oriented X 3, skin pwd. Pt ambulates with a slow gait. Pt able to speak in clear full sentences. PT resting comfortably on the bed. Pt moaning. Physician History: 59-year-old female presents to our ED for evaluation of cough and fatigue that she has had for approximately 1 month. Patient has been to our ED for the same on 3 different occasions. Patient has been treated with antibiotics steroids albuterol inhaler with no improvement. Patient followed up with her primary care physician. Patient states that no one knows what is causing the symptoms. 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 No sick contacts. Patient denies pain. No chest pain no shortness of breath no nausea vomiting or diaphoresis. No rash no dysuria or hematuria. Symptoms are mild to moderate in intensity. No specific worsening improving factors. Patient otherwise feels well. She voices no other complaints or concerns at this time. Portions of this note were created with voice recognition technology. There may be grammatical, spelling, punctuation or sound alike errors Timing/Duration: week(s) (3 weeks) Severity: moderate Modifying Factors: Improves With: nothing Associated Symptoms: denies symptoms Allergies/Adverse Reactions: latex Allergy (Mild, Verified 07/13/24 00:38) Rash tape Allergy (Mild, Uncoded 07/13/24 00:38) Rash Home Medications: Metoprolol Succinate 100 mg [Toprol Xl 100 MG] 100 mg PO HS 10/04/23 [History] Amlodipine Besylate 5 mg PO DAILY 10/18/23 [History] Duloxetine HCl 30 mg [Cymbalta 30 MG Capsule] 30 mg PO DAILY 10/18/23 [History] lisinopriL [Lisinopril] 40 mg PO DAILY 03/31/24 [History] Hx Tetanus, Diphtheria Vaccination/Date Given: Yes Hx Influenza Vaccination/Date Given: No Hx Pneumococcal Vaccination/Date Given: No Immunizations Up to Date: No Travel Risk - International Travel Have you traveled outside of the country in past 3 weeks: No - Emerging Infectious Disease Are you exhibiting symptoms associated with any current EIDs: Yes Symptoms: Cough: New Onset, Diarrhea - Review of Systems Constitutional: No Symptoms, No Fever, No Chills Eyes: No Symptoms Ears, Nose, & Throat: No Symptoms Respiratory: No Symptoms, No Cough, No Dyspnea Cardiac: No Symptoms, No Chest Pain, No Edema, No Syncope Abdominal/Gastrointestinal: Constipation, No Abdominal Pain, No Nausea, No Vomiting, No Diarrhea Genitourinary Symptoms: No Symptoms, No Dysuria Musculoskeletal: No Symptoms, No Back Pain, No Neck Pain Skin: No Symptoms, No Rash Neurological: No Symptoms, No Dizziness, No Focal Weakness, No Sensory Changes Psychological: No Symptoms Endocrine: No Symptoms Hematologic/Lymphatic: No Symptoms Immunological/Allergic: No Symptoms All Other Systems: Reviewed and Negative - Past Medical History Pertinent Past Medical History: Yes Neurological History: Migraines, Other ENT History: No Pertinent History Cardiac History: Hypertension Respiratory History: No Pertinent History Endocrine Medical History: Hypoglycemia Musculoskeletal History: No Pertinent History GI Medical History: GERD, Gallbladder Disease History: No Pertinent History Psycho-Social History: No Pertinent History Female Reproductive Disorders: No Pertinent History Other Medical History: NUMBNESS IN ANTERIOR R KNEE, L KNEE PAIN, DEGENERATIVE CHANGES. - Past Surgical History Past Surgical History: Yes Neuro Surgical History: No Pertinent History Cardiac: No Pertinent History Respiratory: No Pertinent History Gastrointestinal: Cholecystectomy Genitourinary: No Pertinent History Musculoskeletal: Orthopedic Surgery Female Surgical History: Tubal Ligation, Other Other Surgical History: CYST REMOVED FROM LEFT WRIST, colonoscopy Significant Family History: no pertinent family hx - Social History Smoking Status: Former smoker Exposure to second hand smoke: No Drug Use: none Patient Lives Alone: No - Social Determinants of Health Will the patient participate in the screening: Yes Do you worry about a steady place to live?: No Do you have any problems with any of the following?: No known problems In the past 12 months,have you had to go without utilities?: No Transportation Issues: No Has anyone in your support network made you feel unsafe?: No Have you or anyone in your house had to go without enough: No - Nursing Vital Signs Nursing Vital Signs: Initial Vital Signs Temperature 97.9 F 07/26/24 16:38 Pulse Rate 96 H 07/26/24 16:38 Respiratory Rate 18 07/26/24 16:38 Blood Pressure 174/90 01/06/25 16:38 O2 Sat by Pulse Oximetry 97 07/26/24 16:38 Pain Scale Pain Intensity 4 - Physical Exam General Appearance: no apparent distress, alert Eye Exam: PERRL/EOMI, eyes nml inspection Ears, Nose, Throat Exam: normal ENT inspection, TMs normal, pharynx normal, moist mucous membranes Neck Exam: normal inspection, non-tender, supple, full range of motion Respiratory Exam: normal breath sounds, lungs clear, airway intact, No respir atory distress Cardiovascular Exam: regular rate/rhythm, normal heart sounds, normal peripheral pulses Gastrointestinal/Abdomen Exam: soft, normal bowel sounds, No tenderness, No mass Back Exam: normal inspection, normal range of motion, No CVA tenderness, No vertebral tenderness Extremity Exam: normal inspection, normal range of motion, pelvis stable Neurologic Exam: alert, oriented x 3, cooperative, normal mood/affect, nml cerebellar function, nml station & gait, sensation nml, No motor deficits Skin Exam: normal color, warm, dry, No rash Lymphatic Exam: No adenopathy SpO2 Interpretation: normal SpO2: 95 O2 Delivery: Room Air - Course Nursing assessment & vital signs reviewed: Yes - Radiology Exams Chest X-ray Interpretation: Teleradiologist Report (No acute findings) Ordered Tests: Active Orders 24 hr Category Date Time 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 07/26/24 17:05 Active IV Insertion STAT Care 07/26/24 17:02 Active Pulse Oximetry (ED) STAT Care 07/26/24 17:02 Active CHEST 1 VIEW (PORTABLE) Stat Exams 07/26/24 18:42 Taken BLOOD CULTURE Stat Lab 07/26/24 17:30 Received CBC W DIFF Stat Lab 07/26/24 17:02 Completed CMP Stat Lab 07/26/24 17:18 Completed D-DIMER QUANTITATIVE Stat Lab 07/26/24 17:18 Completed NT PRO BNPII Stat Lab 07/26/24 17:18 Completed TROPONIN Q4H Lab 07/26/24 17:18 Completed TROPONIN Q4H Lab 07/26/24 21:15 Ordered TROPONIN Q4H Lab 07/27/24 01:15 Ordered TSH [TSH, 3RD Generation] Stat Lab 07/26/24 20:16 Ordered Lab/Rad Data: Laboratory Result Diagrams 07/26/24 17:02 07/26/24 17:18 Laboratory Results 07/26/24 07/26/24 07/26/24 Range/Units 17:18 17:18 17:18 WBC (3.98-10.04) x10^3/uL RBC (3.93-5.22) x10^6/uL Hgb (11.2-15.7) g/dL Hct (34.1-44.9) % MCV (79.4-94.8) fL MCH (25.6-32.2) pg MCHC (32.2-35.5) g/dL RDW (11.7-14.4) % Plt Count (182-369) x10^3/uL MPV (9.4-12.3) fL Gran % (34.0-71.1) % Immature Gran % (Auto) (0.001-0.429) % Nucleat RBC Rel Count (0.00-0.2) % Eos # (Auto) (0.04-0.36) x10^3/uL Immature Gran # (Auto) (0.001-0.031) x10^3u/L Absolute Lymphs (auto) (1.18-3.74) x10^3/uL Absolute Monos (auto) (0.24-0.86) x10^3/uL Absolute Nucleated RBC (0.00-0.012) x10^3u/L Lymphocytes % (19.3-51.7) % Monocytes % (4.7-12.5) % Eosinophils % (0.7-5.8) % Basophils % (0.1-1.2) % Absolute Granulocytes (1.56-6.13) x10^3/uL Basophils # (0.01-0.08) x10^3/uL D-Dimer 0.29 (0.0-0.50) mg/L Sodium 138 (135-145) mmol/L Potassium 4.5 (3.5-5.1) mmol/L Chloride 105 (98-107) mmol/L Carbon Dioxide 30 (22-30) mmol/L Anion Gap 7.5 (5-15) MEQ/L BUN 14 (7-17) mg/dL Creatinine 1.07 H (0.52-1.04) mg/dL Estimated GFR 59.8 ML/MIN Glucose 105 (74-106) mg/dL Calcium 9.3 (8.4-10.2) mg/dL Total Bilirubin 0.50 (0.2-1.3) mg/dL AST 28 (14-36) U/L ALT 31 (0-35) U/L Alkaline Phosphatase 86 (38-126) U/L Troponin I < 0.012 (0.000-0.033) ng/mL NT-Pro-B Natriuret Pep 88.6 (<300) pg/mL Serum Total Protein 6.7 (6.3-8.2) g/dL Albumin 3.8 (3.5-5.0) g/dL Influenza Type A Ag (NEGATIVE) Influenza Type B Ag (NEGATIVE) RSV (PCR) (NEGATIVE) SARS-CoV-2 (PCR) (NEGATIVE) 07/26/24 07/26/24 Range/Units 17:16 17:02 WBC 6.8 (3.98-10.04) x10^3/uL RBC 4.05 (3.93-5.22) x10^6/uL Hgb 12.6 (11.2-15.7) g/dL Hct 38.6 (34.1-44.9) % MCV 95.3 H (79.4-94.8) fL MCH 31.1 (25.6-32.2) pg MCHC 32.6 (32.2-35.5) g/dL RDW 13.3 (11.7-14.4) % Plt Count 303 (182-369) x10^3/uL MPV 10.4 (9.4-12.3) fL Gran % 61.1 (34.0-71.1) % Immature Gran % (Auto) 0.3 (0.001-0.429) % Nucleat RBC Rel Count 0.0 (0.00-0.2) % Eos # (Auto) 0.32 (0.04-0.36) x10^3/uL Immature Gran # (Auto) 0.02 (0.001-0.031) x10^3u/L Absolute Lymphs (auto) 1.52 (1.18-3.74) x10^3/uL Absolute Monos (auto) 0.73 (0.24-0.86) x10^3/uL Absolute Nucleated RBC 0.00 (0.00-0.012) x10^3u/L Lymphocytes % 22.4 (19.3-51.7) % Monocytes % 10.8 (4.7-12.5) % Eosinophils % 4.7 (0.7-5.8) % Basophils % 0.7 (0.1-1.2) % Absolute Granulocytes 4.15 (1.56-6.13) x10^3/uL Basophils # 0.05 (0.01-0.08) x10^3/uL D-Dimer (0.0-0.50) mg/L Sodium (135-145) mmol/L Potassium (3.5-5.1) mmol/L Chloride (98-107) mmol/L Carbon Dioxide (22-30) mmol/L Anion Gap (5-15) MEQ/L BUN (7-17) mg/dL Creatinine (0.52-1.04) mg/dL Estimated GFR ML/MIN Glucose (74-106) mg/dL Calcium (8.4-10.2) mg/dL Total Bilirubin (0.2-1.3) mg/dL AST (14-36) U/L ALT (0-35) U/L Alkaline Phosphatase (38-126) U/L Troponin I (0.000-0.033) ng/mL NT-Pro-B Natriuret Pep (<300) pg/mL Serum Total Protein (6.3-8.2) g/dL Albumin (3.5-5.0) g/dL Influenza Type A Ag NEGATIVE (NEGATIVE) Influenza Type B Ag NEGATIVE (NEGATIVE) RSV (PCR) NEGATIVE (NEGATIVE) SARS-CoV-2 (PCR) NEGATIVE (NEGATIVE) - Progress Progress: improved Progress Note: 59-year-old female presents to our ED for evaluation of a cough and fatigue. Symptoms have been ongoing for 3 weeks. Previous workups have been unremarka ble. Patient has been treated with antibiotics steroids and inhaler. Patient has been to our ED on 2 other occasions and has follow-up with her primary care doctor as well. Today's workup essentially nonremarkable. TSH ordered results pending. We will follow-up. We advised patient that our testing is negative however we do not test everything the rest to be tested and she may benefit from following up with a specialist. Patient advised to follow-up with a etl analyst and/or a regulatory consultant. Patient agrees to do so. Patient currently asymptomatic no coughing during the time that I was speaking to her in the ED. Patient appears to be in good spirits vital stable. Significant other at bedside. They voiced no other complaints or concerns at this time. Portions of this note were created with voice recognition technology. There may be grammatical, spelling, punctuation or sound alike errors Complexity of problem addressed is moderate acute complicated no critical care time. Complexity of data reviewed and analyzed is moderate. Test ordered test reviewed results analyzed and correlated clinically with history and physical exam. Risk of complication and or risk of morbidity/mortality of patient management is low. Vital stable. Time spent to discharge patient approximately 15 minutes. Plan of care established for shared decision making. No social determinants of health present to impede follow-up. Portions of this note were created with voice recognition technology. There may be grammatical, spelling, punctuation or sound alike errors 07/26/24 20:25 Work note provided 07/26/24 20:27 Counseled pt/family regarding: lab results, diagnosis, need for follow-up, rad results - Departure Departure Disposition: Home Clinical Impression: Cough, Malaise, Fatigue Condition: Stable Critical Care Time: No Referrals: BHARATI BOOTHE NP [Primary Care Provider] - Follow up/PCP as directed Additional Instructions: Discharge/Care Plan ASUNCION CASTELLANOS was seen on 07/26/24 in the Emergency Room. The patient was counseled regarding Diagnosis,Lab results, Imaging studies, need for follow up and when to return to the Emergency Room. Prescriptions given: Discharge Note I have spoken with the patient and/or caregivers. I have explained the patient's condition, diagnosis and treatment plan based on the information available to me at this time. I have answered the patient's and/or caregiver's questions and addressed any concerns. The patient and/or caregivers have as good understanding of the patient's diagnosis, condition and treatment plan as can be expected at this point. The vital signs have been stable. The patient's condition is stable and appropriate for discharge from the emergency department. The patient will pursue further outpatient evaluation with the primary care physician or other designated or consulting physician as outlined in the discharge instructions. The patient and/or caregivers are agreeable to this plan of care and follow-up instructions have been explained in detail. The patient and/or caregivers have received these instruction. The patient/and or caregivers are aware that any significant change in condition or worsening of symptoms should prompt an immediate return to this or the closest emergency department or call 911. Forms: Work/School Release Form
[2024-07-26 20:28] VITALS: BP 173/101; PULSE 97
--- NOTE | 2024-07-27 08:44 | XRAY ---
Indication: Cough. Comparison: July 07, 2024 Portable chest remains inflated and clear. Heart not enlarged. Bony thorax intact again with mild degenerative changes. No new/acute findings.
== END 2024-07-26 20:43 | disposition home or self-care (01) ==
LOC: ED 16:32
DX: R05.2 Subacute cough (principal); R53.81 Other malaise; R53.83 Other fatigue; I10 Essential (primary) hypertension; Z79.899 Other long term (current) drug therapy
CPT/HCPCS: 0241U; 36415; 71045; 80053; 83880; 84443; 84484; 85025; 85379; 87040; 93041; 94760; 99285; 99283

== ENCOUNTER 2024-09-11 17:53 | Emergency (ER) | payer OTHER ==
[2024-09-11 18:15] VITALS: TEMP 98
--- NOTE | 2024-09-11 18:26 | ERPHSYRPT ---
- History of Present Illness Source: patient, family Exam Limitations: no limitations Patient Subjective Stated Complaint: C/O cough since June of 2024. Joint pain. Triage Nursing Assessment: Patient ambulated back to ER wearing a mask. She is alert and oriented. Patient with a dry, non-productive cough during assessment. No SOB. NIX WNL. Nasal congestion present. Timing/Duration: other (Chronic over several weeks) Severity: moderate Associated Symptoms: denies symptoms, cough, malaise, weakness, No chest pain Hx Tetanus, Diphtheria Vaccination/Date Given: Yes Hx Influenza Vaccination/Date Given: No Hx Pneumococcal Vaccination/Date Given: No Immunizations Up to Date: Yes <RAHEL SALEEM - Last Filed: 09/11/24 18:33> <ADIA ARROYO - Last Filed: 09/11/24 22:00> - History of Present Illness Time Seen by Provider: 09/11/24 18:17 Physician History: She is a 59-year-old white female patient who arrives by private vehicle accompanied by the patient's and whose janitorial services supervisor is Dr. Wetzel and primary care provider is nurse tracy Knox and presents with several week history of cough, fatigue, shortness of breath and malaise since June 2024. She has seen her janitorial services supervisor, her primary care physician multiple times, our emergency department multiple times as well as a recent visit to [facility] emergency department (09/09/2024) for the same symptoms. She has seen a teletype mechanic as well and she was to be placed on a long acting inhaler but she has not received it/filled it at this time. Her primary symptoms are cough and shortness of breath. Patient has a history of hypoglycemia, gastroesophageal reflux disease she is currently on an antibiotic that was prescribed to her from [facility]. Her room air oxygen saturation levels 97%. Patient's states that she has not been eating or drinking well in the last several days. The reason why she was seen at [facility] 2 days ago was she "passed out" and that city. Currently, she was seen by janitorial services supervisor relatively recently and had a chemical stress test and an echocardi ogram which showed that her ejection fraction was not normal. She is scheduled for cardiac catheterization September 27, 2024 per 's report (RHAEL SALEEM) Allergies/Adverse Reactions: latex Allergy (Mild, Verified 09/11/24 18:02) Rash tape Allergy (Mild, Uncoded 09/11/24 18:02) Rash Home Medications: Metoprolol Succinate 100 mg [Toprol Xl 100 MG] 100 mg PO HS 10/04/23 [History] Amlodipine Besylate 5 mg PO DAILY 10/18/23 [History] Duloxetine HCl 30 mg [Cymbalta 30 MG Capsule] 30 mg PO DAILY 10/18/23 [H istory] lisinopriL [Lisinopril] 40 mg PO DAILY 03/31/24 [History] Amoxicillin/Potassium Clav [Amox-Clav 875-125 mg Tablet] 1 tab PO BID 09/11/24 [History] Escitalopram Oxalate [Lexapro] 10 mg PO HS 09/11/24 [History] Rosuvastatin Calcium 5 mg PO DAILY 09/11/24 [History] Travel Risk - International Travel Have you traveled outside of the country in past 3 weeks: No - Emerging Infectious Disease Are you exhibiting symptoms associated with any current EIDs: Yes Symptoms: Cough: New Onset, Headaches/Body Aches/, Joint Pain, Other (Please Comment) Comment: sore throat <RAHEL SALEEM - Last Filed: 09/11/24 18:33> - Review of Systems Constitutional: Fatigue, Malaise, Weakness Eyes: No Symptoms Ears, Nose, & Throat: No Symptoms Respiratory: Cough, Dyspnea Cardiac: No Symptoms Abdominal/Gastrointestinal: No Symptoms Genitourinary Symptoms: No Symptoms Musculoskeletal: No Symptoms Skin: No Symptoms Neurological: No Symptoms Psychological: No Symptoms Endocrine: No Symptoms Hematologic/Lymphatic: No Symptoms Immunological/Allergic: No Symptoms All Other Systems: Reviewed and Negative <RAHEL SALEEM - Last Filed: 09/11/24 18:33> - Past Medical History Pertinent Past Medical History: Yes Neurological History: Migraines, Other ENT History: No Pertinent History Cardiac History: High Cholesterol, Hypertension Respiratory History: Sleep Apnea Endocrine Medical History: Hypoglycemia Musculoskeletal History: No Pertinent History GI Medical History: GERD, Gallbladder Disease History: No Pertinent History Psycho-Social History: No Pertinent History Female Reproductive Disorders: No Pertinent History Other Medical History: wears a c-pap at night - Past Surgical History Past Surgical History: Yes Neuro Surgical History: No Pertinent History Cardiac: No Pertinent History Respiratory: No Pertinent History Gastrointestinal: Cholecystectomy Genitourinary: No Pertinent History Musculoskeletal: Orthopedic Surgery Female Surgical History: Tubal Ligation, Other Other Surgical History: CYST REMOVED FROM LEFT WRIST, colonoscopy Significant Family History: no pertinent family hx - Social History Smoking Status: Former smoker Exposure to second hand smoke: No Drug Use: none - Social Determinants of Health Will the patient participate in the screening: Yes Do you worry about a steady place to live?: No Do you have any problems with any of the following?: No known problems In the past 12 months,have you had to go without utilities?: No Transportation Issues: No Has anyone in your support network made you feel unsafe?: No Have you or anyone in your house had to go w/o enough food: No <RAHEL SALEEM - Last Filed: 09/11/24 18:33> - Physical Exam General Appearance: no apparent distress, alert, anxiety Eye Exam: PERRL/EOMI, eyes nml inspection Ears, Nose, Throat Exam: normal ENT inspection, moist mucous membranes Neck Exam: normal inspection, non-tender, supple, full range of motion Respiratory Exam: rhonchi (Bilateral right greater than left), No chest tenderness, No respiratory distress Cardiovascular Exam: regular rate/rhythm, normal heart sounds, normal peripheral pulses Gastrointestinal/Abdomen Exam: soft, normal bowel sounds, No tenderness Pelvic Exam: not done Rectal Exam: not done Back Exam: normal inspection, normal range of motion, No CVA tenderness Extremity Exam: normal inspection, normal range of motion, pelvis stable Neurologic Exam: alert, oriented x 3, cooperative, 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 nml as tested, nml cerebellar function, nml station & gait, sensation nml Skin Exam: normal color, warm, dry Lymphatic Exam: No adenopathy SpO2 Interpretation: normal SpO2: 99 O2 Delivery: Room Air <RAHEL SALEEM - Last Filed: 09/11/24 18:33> - Nursing Vital Signs Nursing Vital Signs: Initial Vital Signs Pulse Rate 89 09/11/24 18:02 Respiratory Rate 20 09/11/24 18:02 Blood Pressure 198/107 09/11/24 18:02 O2 Sat by Pulse Oximetry 97 09/11/24 18:02 Pain Scale Pain Intensity 5 - Course Nursing assessment & vital signs reviewed: Yes <RAHEL SALEEM - Last Filed: 09/11/24 18:33> Ordered Tests: Active Orders 24 hr Category Date Time Status EKG-ER Only STAT Care 09/11/24 18:30 Active IV Insertion STAT Care 09/11/24 18:30 Active Pulse Oximetry (ED) STAT Care 09/11/24 18:30 Active CHEST 1 VIEW (PORTABLE) Stat Exams 09/11/24 18:31 Taken ARTERIAL BLOOD GASES Stat Lab 09/11/24 18:35 Completed BLOOD CULTURE Stat Lab 09/11/24 18:23 Received CBC W DIFF Stat Lab 09/11/24 18:23 Completed CMP Stat Lab 09/11/24 18:23 Completed D-DIMER QUANTITATIVE Stat Lab 09/11/24 18:23 Completed Lactic Acid Stat Lab 09/11/24 18:35 Completed MAGNESIUM Stat Lab 09/11/24 18:23 Completed MONO SCREEN Stat Lab 09/11/24 18:23 Completed NT PRO BNPII Stat Lab 09/11/24 18:23 Completed TROPONIN Q4H Lab 09/11/24 18:23 Completed TROPONIN Q4H Lab 09/11/24 22:30 Ordered TROPONIN Q4H Lab 09/12/24 02:30 Ordered UA W/RFX UR CULTURE Stat Lab 09/11/24 19:19 Completed Respiratory Therapy Assessment DAILY RT 09/11/24 18:43 Active Medication Summary Discontinued Medications Generic Name Dose Route Start Last Admin Trade Name Freq PRN Reason Stop Dose Admin Albuterol/Ipratropium 3 ml 09/11/24 18:30 09/11/24 18:43 Ipratropium/Albuterol Sulfate 3 Ml Ampul.Neb IH 09/11/24 18:31 3 ml STAT ONE Administration Albuterol/Ipratropium Confirm 09/11/24 18:31 Ipratropium/Albuterol Sulfate 3 Ml Ampul.Neb Administered 09/11/24 18:32 Dose 3 ml IH .STK-MED ONE Lab/Rad Data: Laboratory Result Diagrams 09/11/24 18:23 09/11/24 18:23 Laboratory Results 09/11/24 09/11/24 09/11/24 Range/Units 19:19 18:35 18:23 WBC (3.98-10.04) x10^3/uL RBC (3.93-5.22) x10^6/uL Hgb (11.2-15.7) g/dL Hct (34.1-44.9) % MCV (79.4-94.8) fL MCH (25.6-32.2) pg MCHC (32.2-35.5) g/dL RDW (11.7-14.4) % Plt Count (182-369) x10^3/uL MPV (9.4-12.3) fL Gran % (34.0-71.1) % Immature Gran % (Auto) (0.001-0.429) % Nucleat RBC Rel Count (0.00-0.2) % Eos # (Auto) (0.04-0.36) x10^3/uL Immature Gran # (Auto) (0.001-0.031) x10^3u/L Absolute Lymphs (auto) (1.18-3.74) x10^3/uL Absolute Monos (auto) (0.24-0.86) x10^3/uL Absolute Nucleated RBC (0.00-0.012) x10^3u/L Lymphocytes % (19.3-51.7) % Monocytes % (4.7-12.5) % Eosinophils % (0.7-5.8) % Basophils % (0.1-1.2) % Absolute Granulocytes (1.56-6.13) x10^3/uL Basophils # (0.01-0.08) x10^3/uL D-Dimer (0.0-0.50) mg/L Puncture Site LEFT BRACHIAL pCO2 41 (35-45) mmHg pO2 74 L (75-100) mmHg Base Excess 2.6 H (-2.0-2.0) O2 Saturation 94.8 (94-100) g/dF ABG pH 7.43 (7.35-7.45) ABG HCO3 27.2 (22-28) ABG O2 Sat (Measured) 96.5 (95-100) % Garret Test NOT APPLICABLE A-a Gradient 24 a/A Ratio 0.76 Hemoglobin 14.3 Carboxyhemoglobin 1.4 (0.0-6.9) % THgb Methemoglobin 0.5 L (1.4-1.5) % Temperature 37.0 C POC O2 Flow Rate 21 % Sodium (135-145) mmol/L Potassium 4.2 (3.5-5.1) mmol/L Chloride (98-107) mmol/L Carbon Dioxide (22-30) mmol/L Anion Gap (5-15) MEQ/L BUN (7-17) mg/dL Creatinine (0.52-1.04) mg/dL Estimated GFR ML/MIN Glucose (74-106) mg/dL Lactic Acid 0.6 (0.4-2.0) Calcium (8.4-10.2) mg/dL Magnesium (1.6-2.3) mg/dL Total Bilirubin (0.2-1.3) mg/dL AST (14-36) U/L ALT (0-35) U/L Alkaline Phosphatase (38-126) U/L Troponin I (0.000-0.033) ng/mL NT-Pro-B Natriuret Pep (<300) pg/mL Serum Total Protein (6.3-8.2) g/dL Albumin (3.5-5.0) g/dL Urine Color Yellow (Yellow) Urine Appearance Clear (Clear) Urine pH 5.0 (4.6-8.0) Ur Specific [place] 1.025 (1.005-1.030) Urine Protein Negative (Negative) Urine Glucose (UA) Negative (Negative) mg/dL Urine Ketones Trace A (Negative) Urine Blood Negative (Negative) Urine Nitrite Negative (Negative) Urine Bilirubin Negative (Negative) Urine Urobilinogen 0.2 (0.2) mg/dL Ur Leukocyte Esterase Moderate A (Negative) U Hyaline Cast (Auto) 3-5 A (0-2) /LPF Urine Microscopic RBC 0-2 (0-5) /HPF Urine Microscopic WBC 6-10 A (0-5) /HPF Ur Epithelial Cells Moderate A (None Seen) /HPF Urine Bacteria Rare A (None Seen) /HPF Urine Culture Reflexed NO (NO) Monoscreen (NEGATIVE) Influenza Type A Ag NEGATIVE (NEGATIVE) Influenza Type B Ag NEGATIVE (NEGATIVE) RSV (PCR) NEGATIVE (NEGATIVE) SARS-CoV-2 (PCR) NEGATIVE (NEGATIVE) 09/11/24 09/11/24 09/11/24 Range/Units 18:23 18:23 18:23 WBC (3.98-10.04) x10^3/uL RBC (3.93-5.22) x10^6/uL Hgb (11.2-15.7) g/dL Hct (34.1-44.9) % MCV (79.4-94.8) fL MCH (25.6-32.2) pg MCHC (32.2-35.5) g/dL RDW (11.7-14.4) % Plt Count (182-369) x10^3/uL MPV (9.4-12.3) fL Gran % (34.0-71.1) % Immature Gran % (Auto) (0.001-0.429) % Nucleat RBC Rel Count (0.00-0.2) % Eos # (Auto) (0.04-0.36) x10^3/uL Immature Gran # (Auto) (0.001-0.031) x10^3u/L Absolute Lymphs (auto) (1.18-3.74) x10^3/uL Absolute Monos (auto) (0.24-0.86) x10^3/uL Absolute Nucleated RBC (0.00-0.012) x10^3u/L Lymphocytes % (19.3-51.7) % Monocytes % (4.7-12.5) % Eosinophils % (0.7-5.8) % Basophils % (0.1-1.2) % Absolute Granulocytes (1.56-6.13) x10^3/uL Basophils # (0.01-0.08) x10^3/uL D-Dimer 0.27 (0.0-0.50) mg/L Puncture Site pCO2 (35-45) mmHg pO2 (75-100) mmHg Base Excess (-2.0-2.0) O2 Saturation (94-100) g/dF ABG pH (7.35-7.45) ABG HCO3 (22-28) ABG O2 Sat (Measured) (95-100) % Garret Test A-a Gradient a/A Ratio Hemoglobin Carboxyhemoglobin (0.0-6.9) % THgb Methemoglobin (1.4-1.5) % Temperature C POC O2 Flow Rate % Sodium 140 (135-145) mmol/L Potassium 4.4 (3.5-5.1) mmol/L Chloride 102 (98-107) mmol/L Carbon Dioxide 28 (22-30) mmol/L Anion Gap 14.3 (5-15) MEQ/L BUN 19 H (7-17) mg/dL Creatinine 0.98 (0.52-1.04) mg/dL Estimated GFR 66.5 ML/MIN Glucose 100 (74-106) mg/dL Lactic Acid (0.4-2.0) Calcium 9.3 (8.4-10.2) mg/dL Magnesium 2.2 (1.6-2.3) mg/dL Total Bilirubin 0.50 (0.2-1.3) mg/dL AST 35 (14-36) U/L ALT 32 (0-35) U/L Alkaline Phosphatase 91 (38-126) U/L Troponin I < 0.012 (0.000-0.033) ng/mL NT-Pro-B Natriuret Pep 59.2 (<300) pg/mL Serum Total Protein 7.9 (6.3-8.2) g/dL Albumin 4.5 (3.5-5.0) g/dL Urine Color (Yellow) Urine Appearance (Clear) Urine pH (4.6-8.0) Ur Specific [place] (1.005-1.030) Urine Protein (Negative) Urine Glucose (UA) (Negative) mg/dL Urine Ketones (Negative) Urine Blood (Negative) Urine Nitrite (Negative) Urine Bilirubin (Negative) Urine Urobilinogen (0.2) mg/dL Ur Leukocyte Esterase (Negative) U Hyaline Cast (Auto) (0-2) /LPF Urine Microscopic RBC (0-5) /HPF Urine Microscopic WBC (0-5) /HPF Ur Epithelial Cells (None Seen) /HPF Urine Bacteria (None Seen) /HPF Urine Culture Reflexed (NO) Monoscreen NEGATIVE (NEGATIVE) Influenza Type A Ag (NEGATIVE) Influenza Type B Ag (NEGATIVE) RSV (PCR) (NEGATIVE) SARS-CoV-2 (PCR) (NEGATIVE) 09/11/24 Range/Units 18:23 WBC 7.3 (3.98-10.04) x10^3/uL RBC 4.34 (3.93-5.22) x10^6/uL Hgb 13.6 (11.2-15.7) g/dL Hct 41.0 (34.1-44.9) % MCV 94.5 (79.4-94.8) fL MCH 31.3 (25.6-32.2) pg MCHC 33.2 (32.2-35.5) g/dL RDW 13.2 (11.7-14.4) % Plt Count 335 (182-369) x10^3/uL MPV 10.7 (9.4-12.3) fL Gran % 51.3 (34.0-71.1) % Immature Gran % (Auto) 0.3 (0.001-0.429) % Nucleat RBC Rel Count 0.0 (0.00-0.2) % Eos # (Auto) 0.28 (0.04-0.36) x10^3/uL Immature Gran # (Auto) 0.02 (0.001-0.031) x10^3u/L Absolute Lymphs (auto) 2.26 (1.18-3.74) x10^3/uL Absolute Monos (auto) 0.94 H (0.24-0.86) x10^3/uL Absolute Nucleated RBC 0.00 (0.00-0.012) x10^3u/L Lymphocytes % 31.0 (19.3-51.7) % Monocytes % 12.9 H (4.7-12.5) % Eosinophils % 3.8 (0.7-5.8) % Basophils % 0.7 (0.1-1.2) % Absolute Granulocytes 3.75 (1.56-6.13) x10^3/uL Basophils # 0.05 (0.01-0.08) x10^3/uL D-Dimer (0.0-0.50) mg/L Puncture Site pCO2 (35-45) mmHg pO2 (75-100) mmHg Base Excess (-2.0-2.0) O2 Saturation (94-100) g/dF ABG pH (7.35-7.45) ABG HCO3 (22-28) ABG O2 Sat (Measured) (95-100) % Garret Test A-a Gradient a/A Ratio Hemoglobin Carboxyhemoglobin (0.0-6.9) % THgb Methemoglobin (1.4-1.5) % Temperature C POC O2 Flow Rate % Sodium (135-145) mmol/L Potassium (3.5-5.1) mmol/L Chloride (98-107) mmol/L Carbon Dioxide (22-30) mmol/L Anion Gap (5-15) MEQ/L BUN (7-17) mg/dL Creatinine (0.52-1.04) mg/dL Estimated GFR ML/MIN Glucose (74-106) mg/dL Lactic Acid (0.4-2.0) Calcium (8.4-10.2) mg/dL Magnesium (1.6-2.3) mg/dL Total Bilirubin (0.2-1.3) mg/dL AST (14-36) U/L ALT (0-35) U/L Alkaline Phosphatase (38-126) U/L Troponin I (0.000-0.033) ng/mL NT-Pro-B Natriuret Pep (<300) pg/mL Serum Total Protein (6.3-8.2) g/dL Albumin (3.5-5.0) g/dL Urine Color (Yellow) Urine Appearance (Clear) Urine pH (4.6-8.0) Ur Specific [place] (1.005-1.030) Urine Protein (Negative) Urine Glucose (UA) (Negative) mg/dL Urine Ketones (Negative) Urine Blood (Negative) Urine Nitrite (Negative) Urine Bilirubin (Negative) Urine Urobilinogen (0.2) mg/dL Ur Leukocyte Esterase (Negative) U Hyaline Cast (Auto) (0-2) /LPF Urine Microscopic RBC (0-5) /HPF Urine Microscopic WBC (0-5) /HPF Ur Epithelial Cells (None Seen) /HPF Urine Bacteria (None Seen) /HPF Urine Culture Reflexed (NO) Monoscreen (NEGATIVE) Influenza Type A Ag (NEGATIVE) Influenza Type B Ag (NEGATIVE) RSV (PCR) (NEGATIVE) SARS-CoV-2 (PCR) (NEGATIVE) <RAHEL SALEEM - Last Filed: 09/11/24 18:33> <ADIA ARROYO - Last Filed: 09/11/24 22:00> - Progress Progress Note: 09/11/24 18:35 Medical decision making in the assignment of at least moderate complexity based on review of the patient's past medical history, review of the patient's medication list, review patient drug allergy list, history present illness and physical findings on examination. The workup in this patient includes placement of an intravenous line, respiratory therapy evaluation/management, CBC, CMP, magnesium level, troponin level, BNP, ABG, twelve-lead EKG, viral swab, monote st, D-dimer, chest x-ray. Differential diagnosis includes but is not limited to pneumonia, upper re spiratory infection, COPD exacerbation, CHF exacerbation, arrhythmia, viral illness, myocardial infarction, electrolyte abnormalities, pulmonary embolus 09/11/24 18:37 I am transferring care to Dr. Arroyo at shift change. I have reviewed the patient history, presenting complaint, workup performed. He will follow-up on the results and make final disposition. (RAHEL SALEEM) I am going to start her on Levaquin. An x-ray showed that she has a infiltrate in her right lung. 09/11/24 22:00 (ADIA ARROYO) - Departure Departure Disposition: Observation Critical Care Time: No <RAHEL SALEEM - Last Filed: 09/11/24 18:33> - Departure Departure Disposition: Home <ADIA ARROYO - Last Filed: 09/11/24 22:00> - Departure Clinical Impression: Shortness of breath, Cough, Malaise and fatigue, Pneumonia Condition: Good Referrals: JIMI WETZEL [CONSULTING PHYSICIAN] - Follow up/PCP as directed
[2024-09-11] MEDS ORDERED: DUONEB 0.5-3 MG/3 ml Neb IH ONE (18:31)
[2024-09-11 18:42] LABS: A-aADO2 24; ABG HEMOGLOBIN 14.3; ABG POTASSIUM 4.2 (3.5-5.1); ABG SITE LEFT BRACHIAL; ARTERIAL BLD GAS O2 SATURATION 96.5 % (95-100); ARTERIAL BLOOD GAS BASE EXCESS 2.6 (-2.0-2.0); ARTERIAL BLOOD GAS FIO2 21 %; ARTERIAL BLOOD GAS PCO2 41 mmHg (35-45); ARTERIAL BLOOD GAS PO2 74 mmHg (75-100); ARTERIAL BLOOD GAS pH 7.43 (7.35-7.45); CARBOXYHEMOGLOBIN 1.4 % THgb (0.0-6.9); HCO3- 27.2 (22-28); HGB O2 SAT 94.8 g/dF (94-100); Lactic Acid 0.6 (0.4-2.0); Methhemoglobin 0.5 % (1.4-1.5); paO2 pAO1 0.76
[2024-09-11] MEDS: DUONEB 0.5-3 MG/3 ml Neb IH ONE (18:43)
[2024-09-11 18:55] LABS: Absolute Neutrophil Ct (ANC) 3.75 x10^3/uL (1.56-6.13); BASOPHIL % 0.7 % (0.1-1.2); Basophil (Absolute #) 0.05 x10^3/uL (0.01-0.08); Eosinophil % 3.8 % (0.7-5.8); Eosinophil (Absolute #) 0.28 x10^3/uL (0.04-0.36); Hemoglobin 13.6 g/dL (11.2-15.7); IMMATURE GRAN # 0.02 x10^3u/L (0.001-0.031); IMMATURE GRAN % 0.3 % (0.001-0.429); Lymphocyte (Absolute #) 2.26 x10^3/uL (1.18-3.74); Mean Cell Volume 94.5 fL (79.4-94.8); Mean Corpuscular Hemoglobin 31.3 pg (25.6-32.2); Mean Corpuscular Hgb Concent. 33.2 g/dL (32.2-35.5); Mean Platelet Volume 10.7 fL (9.4-12.3); Monocyte (Absolute #) 0.94 x10^3/uL (0.24-0.86); Monocytes % 12.9 % (4.7-12.5); Neutrophil % 51.3 % (34.0-71.1); Platelet Count 335 x10^3/uL (182-369); Red Blood Count 4.34 x10^6/uL (3.93-5.22); Red Cell Distribution Width 13.2 % (11.7-14.4); White Blood Count 7.3 x10^3/uL (3.98-10.04)
[2024-09-11 19:20] LABS: ALBUMIN 4.5 g/dL (3.5-5.0); ALKALINE PHOSPHATASE 91 U/L (38-126); ANION GAP 14.3 MEQ/L (5-15); BLOOD UREA NITROGEN 19 mg/dL (7-17); CHLORIDE 102 mmol/L (98-107); Calcium 9.3 mg/dL (8.4-10.2); Carbon Dioxide 28 mmol/L (22-30); Creatinine 1 0.98 mg/dL (0.52-1.04); EST GLOMERULAR FILTRATION RATE 66.5 ML/MIN; Glucose 100 mg/dL (74-106); MAGNESIUM 2.2 mg/dL (1.6-2.3); NT PRO BNPII 59.2 pg/mL (<300); Potassium 4.4 mmol/L (3.5-5.1); SGOT/AST 35 U/L (14-36); SGPT/ALT 32 U/L (0-35); SODIUM 140 mmol/L (135-145); TROPONIN < 0.012 ng/mL (0.000-0.033); Total Protein 7.9 g/dL (6.3-8.2)
[2024-09-11 19:32] LABS: Appearance Clear (Clear); Bacteria Rare /HPF (None Seen); Bilirubin Negative (Negative); Blood Negative (Negative); Epithelial Cells Moderate /HPF (None Seen); Glucose, Urine Negative (Negative); Ketones Trace (Negative); Leukocyte Esterase Moderate (Negative); Nitrite Negative (Negative); Protein,Urine Dip Negative (Negative); RBC 0-2 /HPF (0-5); Specific Gravity 1.025 (1.005-1.030); Urobilinogen 0.2 mg/dL (0.2)
[2024-09-11 19:33] LABS: INFLUENZA A NEGATIVE (NEGATIVE); INFLUENZA B NEGATIVE (NEGATIVE); RESPIRATORY SYNCTIAL VIRUS NEGATIVE (NEGATIVE); SARS-CoV-2 Xpert Express NEGATIVE (NEGATIVE)
--- NOTE | 2024-09-11 22:01 | XRAY ---
CLINICAL HISTORY: cough;sob COMPARISON: Compared to prior CT Chest dated 07/12/2024. TECHNIQUE: Chest x-ray AP view portable. FINDINGS: Lungs: Clear lung alvarez bilaterally. No consolidation, collapse, or focal lesions. No pulmonary nodules. No evidence of bilateral pleural thickening or effusion. Heart: Normal cardiac size and shape. No abnormal mediastinal masses. Prominent hilar and para-cardiac vascular markings. Bony framework and soft tissue : Thoracic spondylosis No abnormal soft tissue shadows. Clear symmetrical breast shasows. IMPRESSION: No acute cardiopulmonary abnormalities. Electronically Signed by: Mariya Higginbotham MD. (09/11/2024 21:56:32 EST)
[2024-09-11 22:04] VITALS: BP 196/153; PULSE 90; RESP 17; O2SAT 97
[2024-09-11] MEDS ORDERED: Levofloxacin 250MG Tablet ONE (22:04)
[2024-09-11] MEDS: Levofloxacin 250MG Tablet PO ONE (22:06)
== END 2024-09-11 22:23 | disposition home or self-care (01) ==
LOC: ED 17:53
DX: J18.9 Pneumonia, unspecified organism (principal); R06.02 Shortness of breath; R05.3 Chronic cough; R53.81 Other malaise; R53.83 Other fatigue; E78.5 Hyperlipidemia, unspecified; I10 Essential (primary) hypertension; Z79.899 Other long term (current) drug therapy
CPT/HCPCS: 0241U; 36415; 36600; 71045; 80053; 81001; 82375; 82803; 83605; 83735; 83880; 84484; 85025; 85379; 86308; 87040; 93005; 94640; 94760; 99285; 99284; A9270-GY

== ENCOUNTER 2025-06-10 16:09 | Emergency (ER) | payer OTHER ==
[2025-06-10 16:23] VITALS: TEMP 98.4
[2025-06-10] MEDS ORDERED: TYLENOL EXTRA STRENGTH 500 MG ONE (17:08)
[2025-06-10] MEDS ORDERED: Hydromorphone 1 mg/ml Injection ONE (17:10)
[2025-06-10] MEDS: TYLENOL EXTRA STRENGTH 500 MG PO STA (17:13)
[2025-06-10] MEDS: Hydromorphone 1 mg/ml Injection IV ONE (17:15)
[2025-06-10 23:08] VITALS: BP 156/80; PULSE 65; RESP 18; O2SAT 96
--- NOTE | 2025-06-10 23:23 | ERPHSYRPT ---
- History of Present Illness Patient Subjective Stated Complaint: Pt. states, "About an hour ago, I slipped on my steps and fell down them, I hit my back on the steps and I have a cut and possibly a splinter in my finger. My back hurts really bad." Triage Nursing Assessment: Pt. ambulated with slow stiff gait, A&Ox4, Wincing in pain with movement. Skin P/W/D, REsp. even unlabored, No edema. Redness noted with tenderness to rt. mid back. Able to move all four extremities. Physician History: 60-year-old female presenting after slip and fall on wet stairs outside of her home, with back pain. Reports she was exiting her home, slipped due to the rain, and fell onto her buttocks and back down 2 steps. One of the steps jammed into her mid back. Was able to stand, but due to severe mid back pain presented to emergency room. Occurring 30 minutes prior to arrival, did not take pain meds. No head strike, no LOC. Has been ambulatory since fall. Pain is predominately to mid thoracic back and lumbar back. No pain to hips, knees knees, ankles. No injury to upper extremities, no pain to hands or wrists. Not on blood thinners. Allergies/Adverse Reactions: latex Allergy (Mild, Verified 09/11/24 18:02) Rash tape Allergy (Mild, Uncoded 09/11/24 18:02) Rash Home Medications: Metoprolol Succinate 100 mg [Toprol Xl 100 MG] 100 mg PO HS 10/04/23 [History] Amlodipine Besylate 5 mg PO DAILY 10/18/23 [History] Duloxetine HCl 30 mg [Cymbalta 30 MG Capsule] 30 mg PO DAILY 10/18/23 [History] lisinopriL [Lisinopril] 40 mg PO DAILY 03/31/24 [History] Escitalopram Oxalate [Lexapro] 10 mg PO HS 09/11/24 [History] Rosuvastatin Calcium 10 mg PO DAILY 09/11/24 [History] Clopidogrel Bisulfate [Clopidogrel] 75 mg PO DAILY 06/10/25 [History] Hx Tetanus, Diphtheria Vaccination/Date Given: Yes Hx Influenza Vaccination/Date Given: No Hx Pneumococcal Vaccination/Date Given: No Immunizations Up to Date: No Travel Risk - International Travel Have you traveled outside of the country in past 3 weeks: No - Emerging Infectious Disease Are you exhibiting symptoms associated with any current EIDs: No Symptoms: Cough: New Onset, Headaches/Body Aches/, Joint Pain, Other (Please Comment) Comment: sore throat - Past Medical History Pertinent Past Medical History: Yes Neurological History: Migraines, Other ENT History: No Pertinent History Cardiac History: Coronary Artery Disease, High Cholesterol, Hypertension Respiratory History: Sleep Apnea Endocrine Medical History: Hypoglycemia Musculoskeletal History: No Pertinent History GI Medical History: GERD, Gallbladder Disease History: No Pertinent History Psycho-Social History: No Pertinent History Female Reproductive Disorders: No Pertinent History Other Medical History: Coronary Artery Stent - Past Surgical History Past Surgical History: Yes Neuro Surgical History: No Pertinent History Cardiac: Angioplasty Respiratory: No Pertinent History Gastrointestinal: Cholecystectomy Genitourinary: No Pertinent History Musculoskeletal: Orthopedic Surgery Female Surgical History: Tubal Ligation, Other Other Surgical History: CYST REMOVED FROM LEFT WRIST, colonoscopy Significant Family History: no pertinent family hx - Social History Smoking Status: Former smoker Exposure to second hand smoke: No Drug Use: none - Social Determinants of Health Will the patient participate in the screening: Declined to provide - Nursing Vital Signs Nursing Vital Signs: Initial Vital Signs Temperature 98.4 F 06/10/25 16:10 Pulse Rate 80 06/10/25 16:10 Respiratory Rate 22 06/10/25 16:10 Blood Pressure 206/95 06/10/25 16:10 O2 Sat by Pulse Oximetry 97 06/10/25 16:10 Pain Scale Pain Intensity 3 - Physical Exam General Appearance: mild distress Back Exam: vertebral tenderness, point tenderness Extremity Exam: normal inspection, No deformities, No lacerations, No limited range of motion, No swelling, No tenderness Neurologic Exam: alert, oriented x 3, cooperative, No motor weakness Skin Exam: normal color SpO2 Interpretation: normal SpO2: 96 Ordered Tests: Active Orders 24 hr Category Date Time Status LUMBAR SPINE W/O [CT] Stat Exams 06/10/25 17:34 Completed THORACIC SPINE W/O CONTRAST [CT] Stat Exams 06/10/25 17:34 Completed Medication Summary Discontinued Medications Generic Name Dose Route Start Last Admin Trade Name Freq PRN Reason Stop Dose Admin Acetaminophen 1,000 mg 06/10/25 17:02 06/10/25 17:13 Acetaminophen 500 Mg Tablet PO 06/10/25 17:03 1,000 mg STAT STA Administration Acetaminophen Confirm 06/10/25 17:08 Acetaminophen 500 Mg Tablet Administered 06/10/25 17:09 Dose 1,000 mg .ROUTE .STK-MED ONE Hydromorphone HCl 0.5 mg 06/10/25 17:02 06/10/25 17:15 Hydromorphone 1 Mg/1ml Inj IV 06/10/25 17:03 0.5 mg STAT ONE Administration Hydromorphone HCl Confirm 06/10/25 17:10 Hydromorphone 1 Mg/1ml Inj Administered 06/10/25 17:11 Dose 1 mg .ROUTE .STK-MED ONE - Progress Progress Note: 60-year-old female presenting after mechanical slip and fall, with back pain. Landed predominantly on buttocks with step hitting her mid thoracic spine. No head injury, no external evidence of head trauma. On exam no cervical midline tenderness palpation, however midline tenderness to thoracic spine at T10 level, with localized area of redness at location of strike. No midline lumbar tenderness to palpation, though notes radiating pain down to lumbar spine. Tenderness palpation to superficial glutes. No sacral tenderness. Has been able to ambulate despite pain. No lower extremity weakness on exam. Full range of motion of hip knee and ankle, no deformities, doubt fracture or dislocation. No injury to upper extremities. No bowel or bladder incontinence. Given mechanism of injury we will proceed with CT thoracic and lumbar spine to rule out vertebral fracture, compression fracture. Trial multimodal pain control. Given the nature of presenting symptoms and possibility of emergent diagnosis, admission considered and not indicated at this time. Labs and imaging reviewed and interpreted by me. Social determinants of health were reviewed. Reevaluation: CT of thoracic and lumbar spine negative for vertebral fracture, no other t raumatic findings. Pain well-controlled with combination Tylenol and opioid medications. Passed ambulation trial while in ED. plan for discharge home with ongoing pain control, sent few oxycodones to pharmacy. Counseled on [id number] Tylenol and ibuprofen, as well as lidocaine patches. Discussed return precautions. - Departure Departure Disposition: Home Clinical Impression: Back injury Condition: Good Critical Care Time: No Referrals: BHARATI BOOTHE NP [Primary Care Provider, [facility]] - Follow up/PCP as directed Instructions: Low Back Pain (DC) Additional Instructions: Thank you for coming to the Emergency Department today. You were evaluated for back pain after fall on to back. Your CAT scans of your back showed no broken vertebra. However this kind of injury can cause significant inflammation, and thus often takes several weeks to fully heal. You can take 600mg ibuprofen every 6 hours or tylenol 1000mg every 6 hours as needed for pain. Do not exceed 2400mg ibuprofen in a 24 hour period or 4000mg of tylenol in a 24 hour period. You can take these medications together or separately. You can alternate these medications so that you take one medication every 3 hours (ie: at noon take ibuprofen, then at 3pm take tylenol, then at 6pm take ibuprofen and so on). Additionally use daily lidocaine patches on your back. You were prescribed an opioid strength medication. These medicines can cause sleepiness or drowsiness so it is important that you do not drive or operate heavy machinery while taking them. Do not drink alcohol in combination with opioid medications. Opioids often cause constipation and it is important to start a bowel regimen with laxatives (like senna or Miralax) if you are taking opioids for several days or more. If your symptoms get worse or you have new concerns, please seek medical attention again. Please follow up with your primary care doctor within 3 days. Please return to the Emergency Department if you experience: -Chest pain, shortness of breath or difficulty breathing, or fainting -Worsening fevers or chills -Worsening abdominal pain, persistent vomiting, new blood in your stool, inability to keep liquids down, or severe dehydration -Severe pain or progressively worsening pain that hinders your ability to perform daily activities -New severe or concerning symptoms Prescriptions: Oxycodone HCl 5 mg Ir [Oxy-IR 5 MG] 5 mg PO DAILY 5 Days #5 tab MDD 1 tablet
--- NOTE | 2025-06-11 08:18 | XRAY ---
Indication: Pain following fall. Tender to palpation. Multiple contiguous axial images obtained through thoracic spine. Sagittal and coronal reformatted images obtained. Comparison: CT chest July 12, 2024 Osseous structures remain demineralized. There remains minimal/mild multilevel degenerative spondylosis and incidental tiny inferior T5/T8 Schmorl nodes. No acute fracture or suspicious bony lesions. Sagittal and coronal reformatted images again demonstrates normal thoracic alignment. No acute compression fracture or subluxation. Visualized noncontrasted soft tissues demonstrates grossly stable heterogeneous attenuation visualized lung alvarez. CT lumbar spine reported separately. Impression: 1. Negative acute fracture/subluxation. 2. Stable chronic findings including osteopenia, multilevel degenerative spondylosis, T5/T8 Schmorl nodes, and nonspecific heterogeneous lung attenuation.
--- NOTE | 2025-06-11 08:22 | XRAY ---
Indication: Pain following fall. Tender to palpation. Multiple contiguous axial images obtained through lumbar spine. Sagittal and coronal reformatted images obtained. Comparison: CT abdomen and pelvis October 04, 2023 CT thoracic spine reported separately. Osseous structures remain demineralized. There remains minimal multilevel degenerative spondylosis and mild degenerative changes both SI joints. No acute fracture or suspicious bony lesions. Sagittal and coronal reformatted images again demonstrates normal lumbar alignment with vertebral body heights/disc spaces maintained. No acute compression fracture or subluxation. Visualized noncontrasted soft tissues again demonstrates mild scattered aortoiliac calcifications and nonobstructing bilateral renal punctate calculus. Impression: 1. Negative acute fracture/subluxation. 2. Stable chronic findings including osteopenia, multilevel degenerative spondylosis, arteriosclerotic disease, and nonobstructing renal microcalculi.
== END 2025-06-10 23:27 | disposition home or self-care (01) ==
LOC: ED 16:09
DX: S39.92XA Unspecified injury of lower back, initial encounter (principal); S29.9XXA Unspecified injury of thorax, initial encounter; W10.8XXA Fall (on) (from) other stairs and steps, initial encounter; Y92.007 Garden or yard of unspecified non-institutional (private) residence as the place of occurrence of the external cause; I10 Essential (primary) hypertension; Z79.02 Long term (current) use of antithrombotics/antiplatelets; Z79.891 Long term (current) use of opiate analgesic; Z79.899 Other long term (current) drug therapy

== ENCOUNTER 2025-06-29 17:02 | Emergency (ER) | payer OTHER ==
[2025-06-29 17:11] VITALS: PULSE 86; RESP 18; TEMP 97.1
--- NOTE | 2025-06-29 17:18 | ERPHSYRPT ---
- History of Present Illness Time Seen by Provider: 06/29/25 17:18 Source: patient, family Exam Limitations: no limitations Patient Subjective Stated Complaint: pt states she has a bump on her back Triage Nursing Assessment: PT ARRIVES TO THE ED VIA PRIVATE VEHICLE WITH HER . PT IS ABLE TO AMBULATE INTO THE ED WITHOUT ANY DIFFICULTY OR ASSISSTIVE DEVICES. PT IS ALERT AND ORIENTED X4, NO SIGNS OF RESPIRATORY DISTRESS, PULSES EQUAL BILATERALLY. PT STATES THAT FOUR DAYS AGO SHE NOTICED A BUMP ON HR BACK THAT HAS BEEN GRADUALLY GETTING BIGGER AND MORE PAINFUL. PT DOES HAVE WHAT LOOKS LIKE AN ABCESS TO HER LEFT LATERAL BACK THAT IS PROTRUDING/HARD/RED/WARM. THIS AREA IS TENDER TO THE TOUCH AND PT RATES HER PAIN AN 8/10. 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 It has been enlarging and increasing in tenderness over the last 3 days. Patient is not diabetic. Patient is on Plavix. She has a history of hypertension, depression, COPD/asthma and hyperlipidemia. Timing/Duration: day(s) (3) Quality: painful Severity: mild Location: torso (Left upper to mid back) Possible Causes: other (Infected sebaceous cyst) Associated Symptoms: change in skin texture, No fever Allergies/Adverse Reactions: latex Allergy (Mild, Verified 06/29/25 17:08) Rash tape Allergy (Mild, Uncoded 06/29/25 17:08) Rash Home Medications: Metoprolol Succinate 100 mg [Toprol Xl 100 MG] 100 mg PO HS 10/04/23 [History] Amlodipine Besylate 5 mg PO DAILY 10/18/23 [History] Duloxetine HCl 30 mg [Cymbalta 30 MG Capsule] 30 mg PO DAILY 10/18/23 [History] lisinopriL [Lisinopril] 40 mg PO DAILY 03/31/24 [History] Escitalopram Oxalate [Lexapro] 10 mg PO HS 09/11/24 [History] Rosuvastatin Calcium 10 mg PO DAILY 09/11/24 [History] Clopidogrel Bisulfate [Clopidogrel] 75 mg PO DAILY 06/10/25 [History] Hx Tetanus, Diphtheria Vaccination/Date Given: Yes Hx Influenza Vaccination/Date Given: Yes Hx Pneumococcal Vaccination/Date Given: Yes Immunizations Up to Date: Yes Travel Risk - International Travel Have you traveled outside of the country in past 3 weeks: No - Emerging Infectious Disease Are you exhibiting symptoms associated with any current EIDs: No Symptoms: Cough: New Onset, Headaches/Body Aches/, Joint Pain, Other (Please Comment) Comment: sore throat - Review of Systems Constitutional: No Symptoms Eyes: No Symptoms Ears, Nose, & Throat: No Symptoms Respiratory: No Symptoms Cardiac: No Symptoms Abdominal/Gastrointestinal: No Symptoms Skin: Induration (Left upper/mid back area surrounding an abscess) Neurological: No Symptoms Psychological: No Symptoms Endocrine: No Symptoms Hematologic/Lymphatic: No Symptoms Immunological/Allergic: No Symptoms All Other Systems: Reviewed and Negative - Past Medical History Pertinent Past Medical History: Yes Neurological History: Migraines, Other ENT History: No Pertinent History Cardiac History: Coronary Artery Disease, High Cholesterol, Hypertension Respiratory History: Sleep Apnea Endocrine Medical History: Hypoglycemia Musculoskeletal History: No Pertinent History GI Medical History: GERD, Gallbladder Disease History: No Pertinent History Psycho-Social History: No Pertinent History Female Reproductive Disorders: No Pertinent History Other Medical History: Coronary Artery Stent - Past Surgical History Past Surgical History: Yes Neuro Surgical History: No Pertinent History Cardiac: Angioplasty, Cardiac Stent Respiratory: No Pertinent History Gastrointestinal: Cholecystectomy Genitourinary: No Pertinent History Musculoskeletal: Orthopedic Surgery Female Surgical History: Tubal Ligation, Other Other Surgical History: CYST REMOVED FROM LEFT WRIST, colonoscopy Significant Family History: no pertinent family hx - Social History Smoking Status: Never smoker Exposure to second hand smoke: No Drug Use: none - Social Determinants of Health Will the patient participate in the screening: Yes Do you worry about a steady place to live?: No Do you have any problems with any of the following?: No known problems In the past 12 months,have you had to go without utilities?: No Transportation Issues: No Has anyone in your support network made you feel unsafe?: No Have you or anyone in your house had to go w/o enough food: No - Nursing Vital Signs Nursing Vital Signs: Initial Vital Signs Blood Pressure 169/94 06/29/25 17:07 O2 Sat by Pulse Oximetry 96 06/29/25 17:07 Pain Scale Pain Intensity 8 - Physical Exam General Appearance: no apparent distress, alert, obese Eye Exam: PERRL/EOMI, eyes nml inspection Ears, Nose, Throat Exam: normal ENT inspection, moist mucous membranes Neck Exam: normal inspection, non-tender, supple, full range of motion Respiratory Exam: airway intact, No chest tenderness, No respiratory distress Gastrointestinal/Abdomen Exam: No tenderness Pelvic Exam: not done Rectal Exam: not done Back Exam: normal range of motion, other (Left upper mid back with what appears to be abscess in the central region of approximately 3-1/2 cm x 3 cm indurated area of the skin. 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 No complications. The abscess was drained and a approximate 8 to 10 cm 1 half-inch plain packing gauze was placed into the abscess pocket and covered with a bandage - Course Nursing assessment & vital signs reviewed: Yes Ordered Tests: Active Orders 24 hr Category Date Time Status Wound Care STAT Care 06/29/25 18:28 Ordered CULTURE, WOUND-ANAEROBIC Stat Lab 06/29/25 18:15 Ordered CULTURE,WOUND-AEROBIC Stat Lab 06/29/25 18:28 Ordered Medication Summary Discontinued Medications Generic Name Dose Route Start Last Admin Trade Name Freq PRN Reason Stop Dose Admin Cephalexin HCl 500 mg 06/29/25 18:16 06/29/25 18:20 Cephalexin Mh500 Mg Capsule PO 06/29/25 18:17 500 mg STAT ONE Administration Cephalexin HCl Confirm 06/29/25 18:20 Cephalexin Mh500 Mg Capsule Administered 06/29/25 18:21 Dose 500 mg .ROUTE .STK-MED ONE Lidocaine HCl 10 ml 06/29/25 17:57 06/29/25 18:07 Lidocaine Hcl 1% 20 Ml Mdv 20 Ml Ml IJ 06/29/25 17:58 10 ml STAT ONE Administration Lidocaine HCl Confirm 06/29/25 18:07 Lidocaine Hcl 1% 20 Ml Mdv 20 Ml Ml Administered 06/29/25 18:08 Dose 10 ml .ROUTE .STK-MED ONE - Progress Progress: improved Progress Note: 06/29/25 18:33 My medical decision making and the assignment of low to moderate complexity of this patient's medical issue today is based on review of the patient's past medical history, review the patient's medication list, reviewed patient drug allergy list, history present illness and physical findings on examination. The workup in this patient includes culture and sensitivity of abscess drainage. Differential diagnosis includes but is not limited to indurated tissue, abscess, infected sebaceous cyst Counseled pt/family regarding: diagnosis, need for follow-up Medical Desision Making - Independent Historian Additional History obtained from: Spouse - Diagnostic Testing Diagnostic test were ordered, analyzed, and reviewed by me: Yes - Risk of complications Low Risk: Low risk of morbidity from additional dx testing or treatment The pt has a mod risk of morbidity or mortality based on: Need for prescription drug management - Departure Departure Disposition: Home Clinical Impression: Infected sebaceous cyst Condition: Stable Critical Care Time: No Referrals: BHARATI BOOTHE NP [Primary Care Provider, [facility]] - Follow up/PCP as directed Additional Instructions: As discussed, remove the packing before rinsing the site off with soapy water. Blot dry use a business division chair to dry the site before replacing plain packing gauze as discussed at least once a day. Take your antibiotics and other medications as prescribed. Call your primary care provider tomorrow, 06/20/2025, to arrange follow-up appointment to be seen in the next 5 to 7 days. Prescriptions: Cephalexin Mh 500 mg [Keflex 500 mg] 500 mg PO TID #21 cap
[2025-06-29] MEDS: XYLOCAINE 1% HCL 20 ML MDV IJ ONE (18:07)
[2025-06-29] MEDS ORDERED: XYLOCAINE 1% HCL 20 ML MDV ONE (18:07)
[2025-06-29 18:09] VITALS: BP 163/81
[2025-06-29] MEDS ORDERED: KEFLEX 500 MG ONE (18:20)
[2025-06-29] MEDS: KEFLEX 500 MG PO ONE (18:20)
[2025-06-29 18:34] VITALS: O2SAT 99
== END 2025-06-29 18:44 | disposition home or self-care (01) ==
LOC: ED 17:02
DX: L72.3 Sebaceous cyst (principal); I10 Essential (primary) hypertension; Z79.02 Long term (current) use of antithrombotics/antiplatelets; Z79.899 Other long term (current) drug therapy